=== PATIENT | male | born 1930 | race African-American/Black ===

== ENCOUNTER 2017-11-02 10:05 | Emergency (ER) | payer BC, OTHER ==
[2017-11-02 10:44] VITALS: BP 133/67; PULSE 76; TEMP 98.4; BMI 38.0
--- NOTE | 2017-11-02 10:51 | PDOC ---
History of Present Illness - General Chief Complaint: Edema Stated Complaint: SWOLLEN LIP Time Seen by Provider: 11/02/17 10:42 History Source: Patient Exam Limitations: No Limitations - History of Present Illness Initial Comments: 11/02/17 11:13 of mildly demented 87-year-old patient brought him in for worsening swelling to his left upper lip. States last night had a "knot" to the right upper side of his lip and when he woke up this morning noted is the left side of his upper lip was much more swollen. Denies injury, denies any recent change in medications, had a dental work done approximately 2 months ago without any incident. Denies fevers at home, denies any tenderness. Denies any shortness of breath or tongue swelling. Denies any wheezing or cough. Uncertain as to cause. Patient was seen here 2 years ago multiple occasions and then finally admitted for angioedema of unknown source, possibly related to a lollipop but never completely identified. Was treated with steroids, and antihistamines, and discharged with resolution of hives. reports that patient has had no recurrence of that type of event. 11/02/17 11:38 11/02/17 11:46 11/02/17 11:48 Timing/Duration: unsure Severity: mild, moderate Associated Symptoms: reports: denies symptoms. denies: cough, fever/chills Past History - Travel Traveled outside of the country in the last 30 days: No Close contact w/someone who was outside of country & ill: No - Past Medical History Allergies/Adverse Reactions: Allergies Allergy/AdvReac Type Severity Reaction Status Date / Time No Known Allergies Allergy Verified 08/16/16 02:58 Home Medications: Ambulatory Orders Cholecalciferol (Vitamin D3) [Vitamin D3] 5,000 unit PO DAILY 12/26/15 Hydrochlorothiazide [Hctz -] 25 mg PO DAILY 12/26/15 Rosuvastatin Calcium [Crestor] 5 mg PO DAILY 12/26/15 Acetaminophen [Tylenol .Regular Strength -] 650 mg PO Q4H PRN #0 tablet Aspirin Coated [Ecotrin -] 81 mg PO DAILY tablet.ec 12/29/15 Heparin - 5,000 unit SQ BID vial 12/29/15 Insulin (Novolog) [Novolog -] 0 units SQ ACHS units 12/29/15 Metoprolol Succinate [Toprol XL -] 50 mg PO DAILY tab.sr.24h 12/29/15 Metoprolol Tartrate [Lopressor -] 25 mg PO DAILY tablet 12/29/15 Prednisone [Deltasone -] 20 mg PO BID #8 tablet 11/02/17 Anemia: No Asthma: No Cancer: No Cardiac Disorders: No CVA: No COPD: No CHF: No Dementia: Yes Diabetes: Yes GI Disorders: Yes (GERD) Disorders: No HTN: Yes Hypercholesterolemia: Yes Liver Disease: No Seizures: No Thyroid Disease: No - Surgical History Abdominal Surgery: No Appendectomy: No Cardiac Surgery: No Cholecystectomy: No Lung Surgery: No Neurologic Surgery: No Orthopedic Surgery: ((L) KNEE SX) - Suicide/Smoking/Psychosocial Hx Smoking History: Former smoker Have you smoked in the past 12 months: No Information on smoking cessation initiated: No Hx Alcohol Use: No Drug/Substance Use Hx: No Substance Use Type: None Hx Substance Use Treatment: No Review of Systems - Review of Systems Able to Perform ROS?: Yes Is the patient limited Ukrainian proficient: Yes Constitutional: Yes: Symptoms Reported, See HPI, Malaise HEENTM: Yes: Symptoms Reported, See HPI. No: Nose Congestion, Throat Pain, Throat Swelling Respiratory: Yes: See HPI. No: Symptoms reported Musculoskeletal: Yes: Symptoms Reported, See HPI Integumentary: Yes: Symptoms Reported Neurological: Yes: Symptoms reported, See HPI All Other Systems: Reviewed and Negative *Physical Exam - Vital Signs Last Vital Signs Temp Pulse Resp BP Pulse Ox 98.4 F 76 20 133/67 100 11/02/17 10:31 11/02/17 10:31 11/02/17 10:31 11/02/17 10:31 11/02/17 10:31 - Physical Exam General Appearance: Yes: Nourished, Appropriately Dressed, Mild Distress. No: Apparent Distress HEENT: positive: SHERWIN, TMs Normal, Pharynx Normal, Other ( significant swelling to upper lip, worse on the left than the right. He has a professional and healing abrasion to the inner gingival surface left upper side. However there is no tenderness, erythema or heat to the area. No purulent drainage no lymphadenopathy.). negative: Rhinorrhea, Sinus Tenderness Neck: positive: Supple, Lymphadenopathy (R). negative: Tender Respiratory/Chest: positive: Lungs Clear, Normal Breath Sounds. negative: Respiratory Distress Gastrointestinal/Abdominal: positive: Soft. negative: Tender Musculoskeletal: positive: Normal Inspection Extremity: positive: Normal Capillary Refill, Normal Inspection, Normal Range of Motion, Tender Integumentary: positive: Dry, Warm (no hives, wheals, any other evidence of urticaria), Pale Neurologic: positive: batt packer II-XII NML intact, Fully Oriented, Alert, Normal Mood/ Affect, Normal Response Medical Decision Making - Medical Decision Making 11/02/17 12:[address] Taylor who agrees is probable angioedema of unknown cause. We will treat with steroids and antihistamines and observe. with patient, son were care providers and patient discussed plan 11/02/17 12:55 Ration has been resting quietly, and face appears mildly less swelling. Has no worsening of swelling, no urticaria, no breathing problems. States feels well. 11/02/17 14:36 okay after an observation period after Decadron and antihistamines patient rested quietly in the waiting room. Swelling to his lip is mildly resolved and patient has not developed any urticaria, hives or any airway difficulty. Son received father and has brought him home. Understands need to return immediately to emergency department for recurrence or worsening swelling, signs of worsened angioedema including tongue swelling and airway difficulty. We'll continue prednisone and antihistamines as directed. *DC/Admit/Observation/Transfer Diagnosis at time of Disposition: Angioedema Qualifiers: Encounter type: initial encounter Qualified Code(s): T78.3XXA - Angioneurotic edema, initial encounter - Discharge Dispostion Disposition: HOME Condition at time of disposition: Stable Admit: No - Prescriptions Prescriptions: Prednisone [Deltasone -] 20 mg PO BID #8 tablet - Referrals Referrals: Renetta Farley MD [Primary Care Provider] - - Patient Instructions Printed Discharge Instructions: DI for Angioedema Additional Instructions: Rest, drink lots of fluids: Teas, water, soups Lots of handwashing and good hygiene Continue [id number] medications for symptomatic relief- Continue antihistamines daily until pollen season is over; Zyrtec, Claritin, Edda during the daytime and Benadryl at nighttime as will make sleepy Continue prednisone 40 mg daily for the next 4 days Tylenol or Motrin for fever and pain Followup with private physician in one to 2 days Consider following up with an vice president of brand management/cartographic technician for skin testing and possible allergy shots Return to emergency department for worsened symptoms, fevers, dehydration - Post Discharge Activity
[2017-11-02] MEDS ORDERED: DEXAMETHASONE SOD PHOSPHATE 10 MG/1 ML VIAL IM ONE (11:26)
[2017-11-02] MEDS ORDERED: diphenhydrAMINE HCL 25 MG CAPSULE (FP) PO ONE ×2 (11:26→11:36)
[2017-11-02] MEDS ORDERED: RANITIDINE HCL 150 MG TABLET (FP) PO ONE (11:27)
[2017-11-02] MEDS ORDERED: DEXAMETHASONE SOD PHOSPHATE 10 MG/1 ML VIAL ONE (11:35)
[2017-11-02] MEDS ORDERED: RANITIDINE HCL 150 MG TABLET (FP) ONE (11:36)
== END 2017-11-02 14:18 | disposition home or self-care (01) ==
LOC: SUPCPDRO 10:05 → JER 10:05
PROC: 3E0233Z Introduction of Anti-inflammatory into Muscle, Percutaneous Approach (ICD-10-PCS; principal; 2017-11-02)
DX: T78.3XXA Angioneurotic edema, initial encounter (principal); I10 Essential (primary) hypertension; E11.9 Type 2 diabetes mellitus without complications; Z79.4 Long term (current) use of insulin; Z79.84 Long term (current) use of oral hypoglycemic drugs; E78.00 Pure hypercholesterolemia, unspecified; K21.9 Gastro-esophageal reflux disease without esophagitis; F03.90 Unspecified dementia, unspecified severity, without behavioral disturbance, psychotic disturbance, mood disturbance, and anxiety
CPT/HCPCS: 96372; 99281-25

== ENCOUNTER 2017-12-21 00:23 | Observation (INO) | payer OTHER ==
--- NOTE | 2017-12-21 00:42 | PDOC ---
History of Present Illness - General History Source: Patient, Family, Old Records Exam Limitations: No Limitations - History of Present Illness Initial Comments: 12/21/17 02:00 Patient is an 87 year old male with a significant past medical history of dementia, diabetes, GERD, hypertension and hyperlipidemia, who presents to the ED with complaints of chest discomfort that began just prior to ED arrival. Patient reports laying in bed when he began to experiencing bilateral chest discomfort, prompting him to come into the ED for further evaluation after discomfort did not relieve after drinking water. As per EMS staff patient was given 612 of adenosine on scene after patient receives an ECG which shows repeat of sinus with PVC as well as SVT. Denies stroke, heart attack or clots. Denies nausea, vomiting. Denies trauma to affected area. Denies any other symptoms. Allergies: None Social history: No smoking. No alcohol. No illicit drugs. Surgical history: Left knee surgery. PMD: Dr. Farley <Scott Sauer - Last Filed: 12/21/17 02:00> <Danelle Thompson - Last Filed: 12/21/17 02:12> - General Chief Complaint: Irregular Heart Beat Stated Complaint: RAPID HEART RATE Time Seen by Provider: 12/21/17 00:41 Past History <Scott Sauer - Last Filed: 12/21/17 02:00> - Past Medical History Anemia: No Asthma: No Cancer: No Cardiac Disorders: No CVA: No COPD: No CHF: No Dementia: Yes Diabetes: Yes GI Disorders: Yes (GERD) Disorders: No HTN: Yes Hypercholesterolemia: Yes Liver Disease: No Seizures: No Thyroid Disease: No - Surgical History Abdominal Surgery: No Appendectomy: No Cardiac Surgery: No Cholecystectomy: No Lung Surgery: No Neurologic Surgery: No Orthopedic Surgery: ((L) KNEE SX) - Suicide/Smoking/Psychosocial Hx Smoking History: Never smoked Have you smoked in the past 12 months: No Hx Alcohol Use: No Drug/Substance Use Hx: No Substance Use Type: None Hx Substance Use Treatment: No <Danelle Thompson - Last Filed: 12/21/17 02:12> - Past Medical History Allergies/Adverse Reactions: Allergies Allergy/AdvReac Type Severity Reaction Status Date / Time No Known Allergies Allergy Verified 12/21/17 01:07 Home Medications: Ambulatory Orders Cholecalciferol (Vitamin D3) [Vitamin D3] 5,000 unit PO DAILY 12/26/15 Hydrochlorothiazide [Hctz -] 25 mg PO DAILY 12/26/15 Rosuvastatin Calcium [Crestor] 5 mg PO DAILY 12/26/15 Acetaminophen [Tylenol .Regular Strength -] 650 mg PO Q4H PRN #0 tablet Aspirin Coated [Ecotrin -] 81 mg PO DAILY tablet.ec 12/29/15 Heparin - 5,000 unit SQ BID vial 12/29/15 Insulin (Novolog) [Novolog -] 0 units SQ ACHS units 12/29/15 Metoprolol Succinate [Toprol XL -] 50 mg PO DAILY tab.sr.24h 12/29/15 Metoprolol Tartrate [Lopressor -] 25 mg PO DAILY tablet 12/29/15 predniSONE [Deltasone -] 20 mg PO BID #8 tablet 11/02/17 Review of Systems - Review of Systems Able to Perform ROS?: Yes Comments:: 12/21/17 02:00 GENERAL/CONSTITUTIONAL: No fever or chills. No weakness. HEAD, EYES, EARS, NOSE AND THROAT: No change in vision. No ear pain or discharge. No sore throat. GASTROINTESTINAL: No nausea, vomiting, diarrhea or constipation. GENITOURINARY: No dysuria, frequency, or change in urination. CARDIOVASCULAR: +Chest discomfort. No shortness of breath. RESPIRATORY: No cough, wheezing, or hemoptysis. MUSCULOSKELETAL: No joint or muscle swelling or pain. No neck or back pain. SKIN: No rash NEUROLOGIC: No headache, vertigo, loss of consciousness, or change in strength/ sensation. ENDOCRINE: No increased thirst. No abnormal weight change. HEMATOLOGIC/LYMPHATIC: No anemia, easy bleeding, or history of blood clots. ALLERGIC/IMMUNOLOGIC: No hives or skin allergy. <Scott Sauer - Last Filed: 12/21/17 02:00> *Physical Exam - Vital Signs Last Vital Signs Temp Pulse Resp BP Pulse Ox 99.1 F 88 18 114/66 100 12/21/17 00:36 12/21/17 00:36 12/21/17 00:36 12/21/17 00:36 12/21/17 00:36 - Physical Exam Comments: 12/21/17 02:00 GENERAL: Awake, alert, and fully oriented, in no acute distress HEAD: No signs of trauma EYES: PERRLA, EOMI, sclera anicteric, conjunctiva clear ENT: Auricles normal inspection, hearing grossly normal, nares patent, oropharynx clear without exudates. Moist mucosa NECK: Normal ROM, supple, no lymphadenopathy, JVD, or masses LUNGS: Breath sounds equal, clear to auscultation bilaterally. No wheezes, and no crackles HEART: Regular rate and rhythm, normal S1 and S2, no murmurs, rubs or gallops ABDOMEN: Soft, nontender, normoactive bowel sounds. No guarding, no rebound. No masses EXTREMITIES: +Chronic venous stasis changes on lower extremities. Normal range of motion, no edema. No clubbing or cyanosis. No cords, erythema, or tenderness NEUROLOGICAL: +pleasantly demented. +Poor historian Cranial nerves II through XII grossly intact. Normal speech, SKIN: Warm, Dry, normal turgor, no rashes or lesions noted. <Scott Sauer - Last Filed: 12/21/17 02:00> Heart Score/ECG Review - ECG Intrepretation Comment:: 12/21/17 01:02 sinus at 89, 1st degree av block, nl axis, nl interval, no acute st/t wave findings, LVH <Danelle Thompson - Last Filed: 12/21/17 02:12> ED Treatment Course - LABORATORY CBC & Chemistry Diagram: 12/21/17 00:58 12/21/17 00:58 - ADDITIONAL ORDERS Additional order review: Laboratory Results 12/21/17 12/21/17 12/21/17 00:58 00:58 00:58 PT with INR 11.50 INR 1.02 PTT (Actin FS) 38.5 H D Sodium 139 Potassium 3.7 Chloride 104 Carbon Dioxide 24 Anion Gap 11 BUN 16 Creatinine 1.2 Creat Clearance w eGFR 57.54 Random Glucose 125 H Calcium 8.3 L Magnesium 2.2 Total Bilirubin 0.3 AST 20 ALT 14 D Alkaline Phosphatase 90 Creatine Kinase 172 Troponin I 0.05 D B-Natriuretic Peptide 63.21 Total Protein 6.6 Albumin 3.2 L 12/21/17 00:58 RBC 4.23 MCV 83.6 MCHC 33.4 RDW 14.2 MPV 7.6 Neutrophils % 60.3 D Lymphocytes % 23.7 D Monocytes % 12.1 H Eosinophils % 2.9 Basophils % 1.0 <Scott Sauer - Last Filed: 12/21/17 02:00> - LABORATORY CBC & Chemistry Diagram: 12/21/17 00:58 12/21/17 00:58 <Danelle Thompson - Last Filed: 12/21/17 02:12> Medical Decision Making - Medical Decision Making 12/21/17 00:59 a/p: 87yo male with SVT tonight -had assoc chest discomfort with SVT -given adenosine 6, 12mg -now in sinus -pt is pleasantly demented and cannot provide a complete hx -EKG post adenosine shows sinus with PVCs -will check labs, ekg, cxr, mag, electrolytes, trops -will need obs placement for cards eval -hx of SVT in the past - on metoprolol -no complaints at this time. cp and palpitations resolved -cards with Dr. Marcus Dean in past -PMD dr. Farley 12/21/17 01:54 labs reviewed xray without acute findings ekg stable will place in obs for repeat trops and cardiology eval in Am initial trop negative cp free at this time had cp during SVT episode 12/21/17 02:[address] Collins who accepts pt to tele obs will place consult to dr. dean from cardiology <Danelle Thompson - Last Filed: 12/21/17 02:12> *DC/Admit/Observation/Transfer - Attestations Scribe Attestion: 12/21/17 02:00 Documentation prepared by Scott Sauer, acting as medical education manager for Danelle Thompson DO, MD/. <Scott Sauer - Last Filed: 12/21/17 02:00> - Discharge Dispostion Admit: Yes - Attestations Physician Attestion: 12/21/17 01:56 I, Dr. Danelle Thompson DO, attest that this document has been prepared under my direction and personally reviewed by me in its entirety. I further attest, that it accurately reflects all work, treatment, procedures and medical decision -making performed by me. <Danelle Thompson - Last Filed: 12/21/17 02:12> Diagnosis at time of Disposition: Paroxysmal SVT (supraventricular tachycardia), Chest pain - Discharge Dispostion Condition at time of disposition: Fair - Referrals Referrals: Renetta Farley MD [Primary Care Provider] - - Patient Instructions - Post Discharge Activity
[2017-12-21] MEDS ORDERED: ADENOSINE 6 MG/2 ML VIAL IVPUSH ONE (00:57)
[2017-12-21 01:13] LABS: EOS % 2.9 % (0-4.5); HEMATOCRIT 35.4 % (35.4-49); HEMOGLOBIN 11.8 GM/dL (11.7-16.9); LYMPH % 23.7 % (8-40); MCH 27.9 pg (25.7-33.7); MCHC 33.4 g/dl (32.0-35.9); MEAN CELL VOLUME 83.6 fl (80-96); MEAN PLT VOLUME 7.6 fl (7.5-11.1); MONO % 12.1 % (3.8-10.2); NEUT % 60.3 % (42.8-82.8); PLATELET COUNT 155 K/MM3 (134-434); RBC 4.23 M/mm3 (4.00-5.60); RDW 14.2 % (11.9-15.9); WHITE BLOOD COUNT 3.3 K/mm3 (4.0-10.0)
[2017-12-21 01:34] LABS: INR 1.02 (0.82-1.09); PROTHROMBIN TIME (PATIENT) 11.5 SEC (9.98-11.88)
[2017-12-21 01:36] LABS: ACTIVATED PTT 38.5 SECONDS (26.9-34.4)
[2017-12-21 01:42] LABS: ALBUMIN 3.2 g/dl (3.4-5.0); ANION GAP 11 (8-16); BILIRUBIN,TOTAL 0.3 mg/dL (0.2-1.0); BLOOD UREA NITROGEN 16 mg/dL (7-18); CALCIUM 8.3 mg/dL (8.5-10.1); CHLORIDE 104 mmol/L (98-107); CO2 24 mmol/L (21-32); CREATININE 1.2 mg/dL (0.7-1.3); GLUCOSE,RANDOM 125 mg/dL (74-106); MAGNESIUM 2.2 mg/dL (1.8-2.4); POTASSIUM 3.7 mmol/L (3.5-5.1); SGOT/AST 20 U/L (15-37); SGPT/ALT 14 U/L (12-78); SODIUM 139 mmol/L (136-145); TOT PROT 6.6 g/dl (6.4-8.2)
[2017-12-21 01:44] LABS: ALK PHOS 90 U/L (45-117)
--- NOTE | 2017-12-21 04:13 | HP ---
CHIEF COMPLAINT: Chest pain x 1 day PCP: Dr Farley HISTORY OF PRESENT ILLNESS: Pt is a poor historian as a result of dementia, and the son at the bedside does not live with with the father. The Pt is an 87 yo M with PMHx of Aortic stenosis/Mitral regurgitation, SVT, angioedema, DM, HLD, HTN, Dementia, GERD presenting with a hx of retrosternal chest pain that started between 12.30am and 1.00am today. The chest pain came on suddenly while the pt was lying down in bed with his , before he fell asleep. It was difficult to confirm associations such as palpitations, SOB or diaphoresis. The Pt has chronic venous stasis with bilateral pedal edema at baseline. The son, who lives around the corner was contacted by phone and was present by the time EMS arrived. EMS identified the pt to be in SVT and gave him 2 rounds of adenosine (6mg, 12mg) with reversal of the rhythm before arrival at [facility]. Pt was noted to have had recent witnessed falls, last episode occuring the previous day, and the pt was reported not to have hit his head. No hx of seizures or loss of consciousness during those falls. Pt had SVT' s in 2016 that was aborted via vagal stimulation. At baseline he is is able to ambulate with a cane, dress and feed himself, and occasionally drive to nearby locations on his own. No recent hx of fevers, cough or sick contacts. No dysuria or increased urinary frequency. No change in bowel habits. Since arrival in [facility] pt has remained in sinus rhythm. 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 Lives with Smoking: Former, stopped in 1970s Alcohol: social Drugs: Denies Family History: Allergies No Known Allergies Allergy (Verified 03/09/18 01:07) HOME MEDICATIONS: Home Medications Medication Instructions Recorded Cholecalciferol (Vitamin D3) 5,000 unit PO DAILY 12/26/15 [Vitamin D3] Hydrochlorothiazide [Hctz -] 25 mg PO DAILY 12/26/15 Rosuvastatin Calcium [Crestor] 5 mg PO DAILY 12/26/15 Acetaminophen [Tylenol .Regular 650 mg PO Q4H PRN #0 tablet 12/29/15 Strength -] Aspirin Coated [Ecotrin -] 81 mg PO DAILY tablet.ec 12/29/15 Heparin - 5,000 unit SQ BID vial 12/29/15 Insulin (Novolog) [Novolog -] 0 units SQ ACHS units 12/29/15 Metoprolol Succinate [Toprol XL -] 50 mg PO DAILY tab.sr.24h 12/29/15 Metoprolol Tartrate [Lopressor -] 25 mg PO DAILY tablet 12/29/15 predniSONE [Deltasone -] 20 mg PO BID #8 tablet 11/02/17 REVIEW OF SYSTEMS CONSTITUTIONAL: Absent: fever, chills, diaphoresis, generalized weakness, malaise, loss of appetite, weight change HEENT: Absent: rhinorrhea, nasal congestion, throat pain, throat swelling, difficulty swallowing, mouth swelling, ear pain, eye pain, visual changes CARDIOVASCULAR: Absent: chest pain, syncope, palpitations, irregular heart rate, lightheadedness , peripheral edema RESPIRATORY: Absent: cough, shortness of breath, dyspnea with exertion, orthopnea, wheezing, stridor, hemoptysis GASTROINTESTINAL: Absent: abdominal pain, abdominal distension, nausea, vomiting, diarrhea, constipation, melena, hematochezia GENITOURINARY: Absent: dysuria, frequency, urgency, hesitancy, hematuria, flank pain, genital pain MUSCULOSKELETAL: Absent: myalgia, arthralgia, joint swelling, back pain, neck pain SKIN: Absent: rash, itching, pallor HEMATOLOGIC/IMMUNOLOGIC: Absent: easy bleeding, easy bruising, lymphadenopathy, frequent infections ENDOCRINE: Absent: unexplained weight gain, unexplained weight loss, heat intolerance, cold intolerance NEUROLOGIC: Absent: headache, focal weakness or paresthesias, dizziness, unsteady gait, seizure, mental status changes, bladder or bowel incontinence PSYCHIATRIC: Absent: anxiety, depression, suicidal or homicidal ideation, hallucinations. PHYSICAL EXAMINATION Vital Signs - 24 hr 12/21/17 12/21/17 00:36 02:48 Temperature 99.1 F Pulse Rate 88 Pulse Rate [ 77 Left Radial] Respiratory 18 18 Rate Blood Pressure 114/66 Blood Pressure 127/71 [Left Arm] O2 Sat by Pulse 100 97 Oximetry (%) GENERAL: Awake, alert, forgetful with in appropriate responses, in no acute distress. HEAD: Normal with no signs of trauma. EYES: Pupils equal, round and reactive to light, extraocular movements intact, sclera anicteric, conjunctiva clear. EARS, NOSE, THROAT: Ears normal, nares patent, oropharynx clear without exudates. Moist mucous membranes. NECK: Normal range of motion, supple without lymphadenopathy, no JVD, or masses. LUNGS: Breath sounds equal, clear to auscultation bilaterally. No wheezes, and no crackles. HEART: Regular rate and rhythm, normal S1 and S2, 3/6 systolic murmur loudest in RUSB radiating to carotids, no rub or gallop. ABDOMEN: Soft, nontender, obese, normoactive bowel sounds, no guarding, no rebound, no masses. MUSCULOSKELETAL: Normal range of motion at all joints. Chronic venous stasis bilaterally with bilateral pedal edema up to calf UPPER EXTREMITIES: 2+ pulses, warm, well-perfused. No cyanosis. No clubbing. No peripheral edema. LOWER EXTREMITIES: 2+ DP pulses, warm, well-perfused. No calf tenderness. No peripheral edema. NEUROLOGICAL: No facial droop, normal tone globally. No dysphasia . Gait not observed PSYCHIATRIC: Cooperative. Good eye contact. Laboratory Results - last 24 hr 12/21/17 12/21/17 12/21/17 00:58 00:58 00:58 WBC 3.3 L RBC 4.23 Hgb 11.8 D Hct 35.4 D MCV 83.6 MCH 27.9 MCHC 33.4 RDW 14.2 Plt Count 155 MPV 7.6 Neutrophils % 60.3 D Lymphocytes % 23.7 D Monocytes % 12.1 H Eosinophils % 2.9 Basophils % 1.0 PT with INR 11.50 INR 1.02 PTT (Actin FS) 38.5 H D Sodium 139 Potassium 3.7 Chloride 104 Carbon Dioxide 24 Anion Gap 11 BUN 16 Creatinine 1.2 Creat Clearance w eGFR 57.54 Random Glucose 125 H Calcium 8.3 L Magnesium 2.2 Total Bilirubin 0.3 AST 20 ALT 14 D Alkaline Phosphatase 90 Creatine Kinase 172 Creatine Kinase Index 1.0 CK-MB (CK-2) 1.751 Troponin I 0.05 D B-Natriuretic Peptide Total Protein 6.6 Albumin 3.2 L 12/21/17 00:58 WBC RBC Hgb Hct MCV MCH MCHC RDW Plt Count MPV Neutrophils % Lymphocytes % Monocytes % Eosinophils % Basophils % PT with INR INR PTT (Actin FS) Sodium Potassium Chloride Carbon Dioxide Anion Gap BUN Creatinine Creat Clearance w eGFR Random Glucose Calcium Magnesium Total Bilirubin AST ALT Alkaline Phosphatase Creatine Kinase Creatine Kinase Index CK-MB (CK-2) Troponin I B-Natriuretic Peptide 63.21 Total Protein Albumin ASSESSMENT/PLAN: The Pt is an 87 yo M with PMHx of Aortic stenosis/Mitral regurgitation, SVT, angioedema, DM, HLD, HTN, Dementia, GERD presenting with a hx of retrosternal chest pain 4 hours prior, found to have SVT and convert to sinus s/p adenosine x2 SVT: Cardioversion on adenosine EKG- sinus, ,absent ischemic changes Previous episode Hx of falls Cardiac monitoring TSH trops -0.05, trend Monitor lytes and replete as needed ECHO Cardiology consult- Dr Toledo saw in past, family request Dr Stockton CBC, CMP Aortic stenosis/Mitral regurgitation: Based on ECHO 2016 Could have induced recent falls ECHO- TTE Please verify meds in am Bilateral carotid duplex DM ISS ACHS BGM ACHS HLD Crestor 5mg HS HTN Please verify meds in am Metoprolol 25mg daily, Dementia Based on pt hx is on memantine Please confirm GERD Stable Hx of angioedema: Stable FEN: No fluids indicated at this time Monitor lytes and replete as needed Sodium restricted diet PPx: Heparin SQ 5000iu Q8H Dispo: Tele Visit type - Emergency Visit Emergency Visit: Yes ED Registration Date: 12/21/17 Care time: The patient presented to the Emergency Department on the above date and was hospitalized for further evaluation of their emergent condition. - New Patient This patient is new to me today: Yes Date on this admission: 12/22/17 - Critical Care Critical Care patient: No Hospitalist Screening - Colonoscopy Questionnaire Colonoscopy Questionnaire: Colonoscopy Questionnaire - Patient: 50 - 75 years old and never had a screening colonoscopy: No History of colon or rectal polyps, or CA: Unknown History of IBD, Crohn's disease or UC: Unknown History of abdominal radiation therapy as a child: Unknown - Relative: 1 with colon or rectal CA, or polyps at age 60 or younger: Unknown Colon or rectal CA diagnosed at age 45 or younger: Unknown Multiple relatives with colon or rectal CA: Unknown - Outcome: Screening Result: Negative Screen
[2017-12-21 04:43] VITALS: BMI 33.7
--- NOTE | 2017-12-21 06:12 | PN ---
Teaching Attending Note Name of Resident: Mariah Ma ATTENDING PHYSICIAN STATEMENT I saw and evaluated the patient. Chart, data, imaging reviewed. I reviewed the resident's note and discussed the case with the resident. I agree with the resident's findings and plan as documented. SUBJECTIVE: 87 year old man w/ dementia, diabetes, GERD, hypertension and hyperlipidemia who experienced chest discomfort on 12/20/17 when he was laying in bed. EMS was called and pt was found to be in SVT on rhythm strip. He was converted to sinus rhythm after adenosine administration 6mg and then 12mg IV. Questionable falls. No reported trauma. OBJECTIVE: Last Vital Signs Temp Pulse Resp BP Pulse Ox 97.9 F 74 18 120/61 99 12/21/17 06:00 12/21/17 06:00 12/21/17 06:00 12/21/17 06:00 12/21/17 04:36 General- aaox3, HEENT- at, nc, moist oral mucosa Neck -supple, no jvd, radiation to carotids b/l from systolic murmur CV - s1+s2+ rrr, systolic murmur Chest- cta Abdomen- soft, nt Ext- no pedal edema Abnormal Lab Results 12/21/17 12/21/17 12/21/17 00:58 00:58 00:58 WBC 3.3 L Monocytes % 12.1 H PTT (Actin FS) 38.5 H D Random Glucose 125 H Calcium 8.3 L Albumin 3.2 L EKG- sinus rhythm, LVH ASSESSMENT AND PLAN: #87yo man with SVT which was converted to sinus rhythm after adenosine administration x 2 in the field. Normal EKG in ER. Electrolytes wnl. -admit to tele observation -repeat electolytes, supplement PRN -repeat ekg -cardiology consult for possible EP studies -fall precautions -bed rest #Systolic murmur- likely 2/2 to aortic stenosis -transthoracic echo - to check gradient -carotid duplex b/l -DVT ppx- heparin sc -continue home meds for chronic medical problems
[2017-12-21 07:54] LABS: BASO % 0.7 % (0-2.0); EOS % 1.7 % (0-4.5); HEMATOCRIT 35.4 % (35.4-49); HEMOGLOBIN 11.9 GM/dL (11.7-16.9); LYMPH % 21.6 % (8-40); MCH 28.2 pg (25.7-33.7); MCHC 33.7 g/dl (32.0-35.9); MEAN CELL VOLUME 83.6 fl (80-96); MEAN PLT VOLUME 7.4 fl (7.5-11.1); MONO % 11.9 % (3.8-10.2); NEUT % 64.1 % (42.8-82.8); PLATELET COUNT 155 K/MM3 (134-434); RBC 4.24 M/mm3 (4.00-5.60); RDW 14.1 % (11.9-15.9)
[2017-12-21] MEDS ORDERED: ACETAMINOPHEN 325 MG TABLET (FP) PO PRN (08:39)
[2017-12-21 08:41] LABS: ALBUMIN 3.2 g/dl (3.4-5.0); ALK PHOS 75 U/L (45-117); ANION GAP 6 (8-16); BILIRUBIN,TOTAL 0.4 mg/dL (0.2-1.0); BLOOD UREA NITROGEN 15 mg/dL (7-18); CALCIUM 8.4 mg/dL (8.5-10.1); CHLORIDE 104 mmol/L (98-107); CO2 29 mmol/L (21-32); CREATININE 1.1 mg/dL (0.7-1.3); GLUCOSE,RANDOM 99 mg/dL (74-106); MAGNESIUM 2.2 mg/dL (1.8-2.4); PHOSPHOROUS 3.3 mg/dL (2.5-4.9); POTASSIUM 4.3 mmol/L (3.5-5.1); SGOT/AST 17 U/L (15-37); SGPT/ALT 13 U/L (12-78); SODIUM 139 mmol/L (136-145); TOT PROT 6.1 g/dl (6.4-8.2)
--- NOTE | 2017-12-21 08:45 | EKG ---
Test Reason : Blood Pressure : / mmHG Vent. Rate : 089 BPM Atrial Rate : 089 BPM P-R Int : 234 ms QRS Dur : 100 ms QT Int : 376 ms P-R-T Axes : 058 -19 054 degrees QTc Int : 457 ms SINUS RHYTHM WITH 1ST DEGREE A-V BLOCK MODERATE VOLTAGE CRITERIA FOR LVH, MAY BE NORMAL VARIANT CANNOT RULE OUT SEPTAL INFARCT , AGE UNDETERMINED ABNORMAL ECG WHEN COMPARED WITH ECG OF 27-DEC-2015 09:29, MINIMAL CRITERIA FOR SEPTAL INFARCT ARE NOW PRESENT Confirmed by MICHELET GARCIA, MILAD ([id number]) on 12/21/2017 8:45:24 AM Referred By: Confirmed By:MILAD TAFOYA MD
--- NOTE | 2017-12-21 09:32 | PN ---
Progress Note, Physician History of Present Illness: FEELS BETTER ADMITTED WITH SVT - Current Medication List Current Medications: Active Medications Acetaminophen (Tylenol -) 650 mg PO Q4H PRN PRN Reason: FEVER Aspirin (Ecotrin -) 81 mg PO DAILY [facility] Heparin Sodium (Porcine) (Heparin -) 5,000 unit SQ BID [facility] Hydrochlorothiazide (Hctz -) 25 mg PO DAILY [facility] Metoprolol Tartrate (Lopressor -) 25 mg PO DAILY [facility] Rosuvastatin Calcium (Crestor -) 5 mg PO HS [facility] - Objective Vital Signs: Vital Signs Temperature 97.9 F 12/21/17 06:00 Pulse Rate 74 12/21/17 06:00 Respiratory Rate 18 12/21/17 06:00 Blood Pressure 120/61 12/21/17 06:00 O2 Sat by Pulse Oximetry (%) 99 12/21/17 04:36 Cardiovascular: Yes: Murmur, S1, S2 Respiratory: Yes: Regular, CTA Bilaterally Gastrointestinal: Yes: Normal Bowel Sounds, Soft Edema: No Labs: CBC, BMP 12/21/17 07:15 12/21/17 07:15 INR, PTT INR 1.02 (0.82-1.09) 12/21/17 00:58 Problem List - Problems (1) Paroxysmal SVT (supraventricular tachycardia) Assessment/Plan: TELE MONITORING ECHO TFT CARDIO Code(s): I47.1 - SUPRAVENTRICULAR TACHYCARDIA (2) Aortic stenosis Assessment/Plan: ECHO CARDIO Code(s): I35.0 - NONRHEUMATIC AORTIC (VALVE) STENOSIS (3) Diabetes Assessment/Plan: BGM Code(s): E11.9 - TYPE 2 DIABETES MELLITUS WITHOUT COMPLICATIONS (4) HTN (hypertension) Code(s): I10 - ESSENTIAL (PRIMARY) HYPERTENSION (5) Dementia Assessment/Plan: on namenda Code(s): F03.90 - UNSPECIFIED DEMENTIA WITHOUT BEHAVIORAL DISTURBANCE
[2017-12-21] MEDS: HYDROCHLOROTHIAZIDE 25 MG TABLET (FP) PO SCH (09:48)
[2017-12-21] MEDS: ASPIRIN COATED 81 MG TABLET.EC PO SCH (09:48)
[2017-12-21] MEDS: METOPROLOL TARTRATE 25 MG TABLET (FP) PO SCH (09:48)
[2017-12-21] MEDS: HEPARIN NA (PORCINE) 5,000 UNITS/ML 1ML VIAL SQ SCH ×2 (09:49→21:34)
--- NOTE | 2017-12-21 13:35 | PN ---
Progress Note (short form) - Note Progress Note: PULMONARY CONSULTATION DICTATED 12/21/17 IMP CHEST PAIN PSVT HTN DM LEFT HILAR CALCIFICATION CHRONIC DEMENTIA PLAN O2 PRN RATE CONTROL PER CARDIOLOGY CARDIAC ENZYMES MONITOR BLOOD SUGARS TELEMETRY MONITORING DR MELÉNDEZ Problem List - Problems (1) Dementia Code(s): F03.90 - UNSPECIFIED DEMENTIA WITHOUT BEHAVIORAL DISTURBANCE (2) Chest pain Code(s): R07.9 - CHEST PAIN, UNSPECIFIED (3) Paroxysmal SVT (supraventricular tachycardia) Code(s): I47.1 - SUPRAVENTRICULAR TACHYCARDIA (4) Aortic stenosis Code(s): I35.0 - NONRHEUMATIC AORTIC (VALVE) STENOSIS (5) Diabetes Code(s): E11.9 - TYPE 2 DIABETES MELLITUS WITHOUT COMPLICATIONS (6) HLD (hyperlipidemia) Code(s): E78.5 - HYPERLIPIDEMIA, UNSPECIFIED (7) HTN (hypertension) Code(s): I10 - ESSENTIAL (PRIMARY) HYPERTENSION
--- NOTE | 2017-12-21 13:52 | CON.CARD ---
Consult Consult Specialty:: cardiology Referred by:: Karina Reason for Consultation:: Chest pain - History of Present Illness Chief Complaint: Chest pain History of Present Illness: The patient is an 87-year-old man with dementia, diabetes, hypertension, hyperlipidemia, GERD, now presenting with chest pains in bed. The patient called EMS who noticed a supraventricular tachycardia. The patient was given adenosine in the field and broke to sinus rhythm. Is currently comfortable and symptom free. Maintaining sinus rhythm. - History Source History Provided By: Patient, Medical Record Limitations to Obtaining History: Dementia - Past Medical History ACCESS LIAISON: Yes: Dementia Cardio/Vascular: Yes: Aortic Stenosis, HTN, Hyperlipdemia, Mitral Insufficiency Musculoskeletal: Yes: Osteoarthritis Endocrine: Yes: Diabetes Mellitus - Alcohol/Substance Use Hx Alcohol Use: No - Smoking History Smoking history: Never smoked Have you smoked in the past 12 months: No Home Medications - Allergies Allergies/Adverse Reactions: Allergies Allergy/AdvReac Type Severity Reaction Status Date / Time No Known Allergies Allergy Verified 12/21/17 01:07 - Home Medications Home Medications: Ambulatory Orders Cholecalciferol (Vitamin D3) [Vitamin D3] 5,000 unit PO DAILY 12/26/15 Hydrochlorothiazide [Hctz -] 25 mg PO DAILY 12/26/15 Rosuvastatin Calcium [Crestor] 5 mg PO DAILY 12/26/15 Acetaminophen [Tylenol .Regular Strength -] 650 mg PO Q4H PRN #0 tablet Aspirin Coated [Ecotrin -] 81 mg PO DAILY tablet.ec 12/29/15 Heparin - 5,000 unit SQ BID vial 12/29/15 Insulin (Novolog) [Novolog -] 0 units SQ ACHS units 12/29/15 Metoprolol Succinate [Toprol XL -] 50 mg PO DAILY tab.sr.24h 12/29/15 Metoprolol Tartrate [Lopressor -] 25 mg PO DAILY tablet 12/29/15 predniSONE [Deltasone -] 20 mg PO BID #8 tablet 11/02/17 Review of Systems - Review of Systems Constitutional: reports: No Symptoms Eyes: reports: No Symptoms HENT: reports: No Symptoms Neck: reports: No Symptoms Cardiovascular: reports: Chest Pain Respiratory: reports: No Symptoms Gastrointestinal: reports: No Symptoms Genitourinary: reports: No Symptoms Breasts: reports: No Symptoms Reported Musculoskeletal: reports: No Symptoms Integumentary: reports: No Symptoms Neurological: reports: No Symptoms Endocrine: reports: No Symptoms Vital Signs: Vital Signs Temperature 97.7 F 12/21/17 09:46 Pulse Rate 70 12/21/17 09:46 Respiratory Rate 18 12/21/17 09:46 Blood Pressure 118/62 12/21/17 09:46 O2 Sat by Pulse Oximetry (%) 99 12/21/17 09:00 Constitutional: Yes: Well Nourished, No Distress, Calm Eyes: Yes: WNL, Conjunctiva Clear, EOM Intact HENT: Yes: WNL, Atraumatic, Normocephalic Neck: Yes: WNL, Supple, Trachea Midline Respiratory: Yes: WNL, Regular, CTA Bilaterally Gastrointestinal: Yes: WNL, Normal Bowel Sounds, Soft Renal/: Yes: WNL Cardiovascular: Yes: Regular Rate and Rhythm JVD: No Carotid Bruit: No Heart Sounds: Yes: S1, S2 Murmur: Yes: Systolic Murmur, Grade 2 Musculoskeletal: Yes: WNL Extremities: Yes: WNL Edema: No Peripheral Pulses: 1+ Left Carotid, 1+ Right Carotid, 1+ Left Femoral, 1+ Right Femoral, 1+ Left Popliteal, 1+ Right Popliteal, 1+ Left Doralis Pedis, 1+ Right Dorsalis Pedis Integumentary: Yes: WNL Neurological: Yes: Alert - Other Data Labs, Other Data: CBC, BMP 12/21/17 07:15 12/21/17 07:15 INR, PTT INR 1.02 (0.82-1.09) 12/21/17 00:58 Troponin, BNP 12/21/17 12/21/17 12/21/17 00:58 00:58 07:15 Troponin I 0.05 D 0.12 H D B-Natriuretic Peptide 63.21 12/21/17 08:40 Troponin I Cancelled B-Natriuretic Peptide Troponin, BNP 12/21/17 12/21/17 12/21/17 00:58 00:58 07:15 Troponin I 0.05 D 0.12 H D B-Natriuretic Peptide 63.21 12/21/17 08:40 Troponin I Cancelled B-Natriuretic Peptide Assessment/Plan Elderly man presenting with chest pains in bed. Found to have a supraventricular tachycardia by EMS. The arrhythmia broke with adenosine. The patient has been maintaining sinus rhythm. He has been chest pain-free. There are no acute ECG changes. No CHF. Second set of troponins are elevated. Please increase metoprolol to 25 mg twice daily. Increase the dose as much as heart rate and blood pressure allows. If symptoms persist would start Imdur 30 mg daily. Give Ecotrin 81 mg daily. There is no need for further cardiac workup at this point. Conservative cardiac care. Would monitor for further 24 hours on the above regimen. The patient is stable.
--- NOTE | 2017-12-21 14:09 | CONS ---
DATE OF CONSULTATION: 12/21/2017 REFERRING PHYSICIAN: Renetta Farley MD HISTORY: The patient is an 87-year-old black male with past medical history of dementia, diabetes, GERD, hypertension, hyperlipidemia, aortic stenosis, diastolic heart failure admitted to [facility] with the complaint of chest pain. The patient states that he developed chest discomfort just prior to emergency room. He apparently was lying in bed at the time and started feeling bilateral chest discomfort at which time he came to the ER. He denied any complaint of shortness of breath, nausea, vomiting, or diaphoresis. In the emergency room, he was noted to be in SVT at which point he was given adenosine with good response. The patient was transferred to the telemetry unit for further monitoring. He has a history of tobacco use. He quit years ago. There is no history of occupational exposure to chemicals or fumes. He denies any cough, fevers, weight loss, or night sweats. He denies any hemoptysis. PAST MEDICAL HISTORY: Again, includes aortic stenosis, dementia, diabetes, GERD, hypertension, hyperlipidemia. MEDICATIONS: Prior to admission include vitamin D, hydrochlorothiazide, Crestor, Ecotrin, and NovoLog. REVIEW OF SYSTEMS: No shortness of breath, no cough, no hemoptysis. Positive chest pain. No nausea, no vomiting, no abdominal pain. Positive lower extremity edema chronic. PHYSICAL EXAMINATION: General: The patient is a well-developed, well-nourished male awake and alert mildly confused but in no acute distress. Vital Signs: He is afebrile. Blood pressure is 118/62, respiratory rate 18, O2 saturation 99% on room air. HEENT: Normocephalic and atraumatic. Neck: Supple. Heart: Regular with S1, S2. Chest: Clear. Abdomen: Soft. Bowel sounds are positive. Extremities: Chronic stasis changes bilaterally. LABORATORIES: WBC 4, hemoglobin 11.9, hematocrit 35.9 with a platelet count of 155,000. BUN 15, creatinine 1.1. Chest x-ray with mild pulmonary vascular congestion and some mild hilar calcifications. IMPRESSION: 1. Chest pain syndrome. 2. Supraventricular tachycardia. 3. Dementia. 4. Hypertension. 5. Hilar calcification, chronic. 6. Aortic stenosis. 7. Diabetes. PLAN: Continue cardiac monitoring. Rate control as per Cardiology. No further workup as per hilar calcifications. This is chronic, possible infection, granulomatous disease. Codey [id number]
[2017-12-21] MEDS: MEMANTINE HCL 10 MG TABLET (FP) PO SCH ×2 (16:01→21:34)
[2017-12-21] MEDS ORDERED: ROSUVASTATIN CA 5 MG TABLET (FP) PO SCH (22:00)
[2017-12-22 07:51] LABS: INR 1.05 (0.82-1.09); PROTHROMBIN TIME (PATIENT) 11.9 SEC (9.98-11.88)
[2017-12-22] MEDS: METOPROLOL TARTRATE 25 MG TABLET (FP) PO SCH (09:12)
[2017-12-22] MEDS: HYDROCHLOROTHIAZIDE 25 MG TABLET (FP) PO SCH (09:12)
[2017-12-22] MEDS: ASPIRIN COATED 81 MG TABLET.EC PO SCH (09:12)
[2017-12-22] MEDS: HEPARIN NA (PORCINE) 5,000 UNITS/ML 1ML VIAL SQ SCH (09:12)
[2017-12-22] MEDS: MEMANTINE HCL 10 MG TABLET (FP) PO SCH (09:12)
[2017-12-22 11:08] VITALS: BP 119/64; PULSE 88; TEMP 97.9
--- NOTE | 2017-12-22 12:07 | PN ---
Progress Note, Physician History of Present Illness: PULMONARY AWAKE,CONFUSED,NAD - Current Medication List Current Medications: Active Medications Acetaminophen (Tylenol -) 650 mg PO Q4H PRN PRN Reason: FEVER Aspirin (Ecotrin -) 81 mg PO DAILY [facility] Last Admin: 12/22/17 09:12 Dose: 81 mg Heparin Sodium (Porcine) (Heparin -) 5,000 unit SQ BID [facility] Last Admin: 12/22/17 09:12 Dose: 5,000 unit Hydrochlorothiazide (Hctz -) 25 mg PO DAILY [facility] Last Admin: 12/22/17 09:12 Dose: 25 mg Memantine (Namenda -) 10 mg PO BID [facility] Last Admin: 12/22/17 09:12 Dose: 10 mg Metoprolol Tartrate (Lopressor -) 25 mg PO BID [facility] Rosuvastatin Calcium (Crestor -) 5 mg PO HS [facility] Last Admin: 12/21/17 21:34 Dose: 5 mg - Objective Vital Signs: Vital Signs Temperature 97.9 F 12/22/17 09:07 Pulse Rate 88 12/22/17 09:07 Respiratory Rate 18 12/22/17 09:07 Blood Pressure 119/64 12/22/17 09:07 O2 Sat by Pulse Oximetry (%) 99 12/22/17 10:00 Constitutional: Yes: Well Nourished, Calm Eyes: Yes: WNL HENT: Yes: WNL Neck: Yes: WNL Cardiovascular: Yes: Regular Rate and Rhythm, S1, S2 Respiratory: Yes: Diminished Gastrointestinal: Yes: Normal Bowel Sounds, Soft Extremities: Yes: WNL Edema: No Labs: CBC, BMP Problem List - Problems (1) Dementia Code(s): F03.90 - UNSPECIFIED DEMENTIA WITHOUT BEHAVIORAL DISTURBANCE (2) Chest pain Code(s): R07.9 - CHEST PAIN, UNSPECIFIED (3) Paroxysmal SVT (supraventricular tachycardia) Code(s): I47.1 - SUPRAVENTRICULAR TACHYCARDIA (4) Aortic stenosis Code(s): I35.0 - NONRHEUMATIC AORTIC (VALVE) STENOSIS (5) Diabetes Code(s): E11.9 - TYPE 2 DIABETES MELLITUS WITHOUT COMPLICATIONS (6) HLD (hyperlipidemia) Code(s): E78.5 - HYPERLIPIDEMIA, UNSPECIFIED (7) HTN (hypertension) Code(s): I10 - ESSENTIAL (PRIMARY) HYPERTENSION Assessment/Plan IMP CHEST PAIN IMPROVED PSVT HTN DM LEFT HILAR CALCIFICATION CHRONIC DEMENTIA PLAN O2 PRN RATE CONTROL PER CARDIOLOGY MONITOR BLOOD SUGARS TELEMETRY MONITORING DR MELÉNDEZ Problem List - Problems (1) Dementia Code(s): F03.90 - UNSPECIFIED DEMENTIA WITHOUT BEHAVIORAL DISTURBANCE (2) Chest pain Code(s): R07.9 - CHEST PAIN, UNSPECIFIED (3) Paroxysmal SVT (supraventricular tachycardia) Code(s): I47.1 - SUPRAVENTRICULAR TACHYCARDIA (4) Aortic stenosis Code(s): I35.0 - NONRHEUMATIC AORTIC (VALVE) STENOSIS (5) Diabetes Code(s): E11.9 - TYPE 2 DIABETES MELLITUS WITHOUT COMPLICATIONS (6) HLD (hyperlipidemia) Code(s): E78.5 - HYPERLIPIDEMIA, UNSPECIFIED (7) HTN (hypertension) Code(s): I10 - ESSENTIAL (PRIMARY) HYPERTENSION
--- NOTE | 2017-12-22 13:05 | DS ---
Physical Examination Vital Signs: Vital Signs Temperature 97.9 F 12/22/17 09:07 Pulse Rate 88 12/22/17 09:07 Respiratory Rate 18 12/22/17 09:07 Blood Pressure 119/64 12/22/17 09:07 O2 Sat by Pulse Oximetry (%) 99 12/22/17 10:00 Findings/Remarks: confusion Cardiovascular: Yes: S1, S2 Respiratory: Yes: Regular, CTA Bilaterally Gastrointestinal: Yes: Normal Bowel Sounds Neurological: Yes: Alert, Confusion Labs: CBC, BMP 12/21/17 07:15 12/21/17 07:15 Discharge Summary Reason For Visit: PAROXYSMAL SUPRAVENTRICULAR TACHYCARDIA Current Active Problems Chest pain (Acute) Dementia (Acute) Paroxysmal SVT (supraventricular tachycardia) (Acute) Hospital Course: The Pt is an 87 yo M with PMHx of Aortic stenosis/Mitral regurgitation, SVT, angioedema, DM, HLD, HTN, Dementia, GERD presenting with a hx of retrosternal chest pain that started between 12.30am and 1.00am today. The chest pain came on suddenly while the pt was lying down in bed with his , before he fell asleep. It was difficult to confirm associations such as palpitations, SOB or diaphoresis. The Pt has chronic venous stasis with bilateral pedal edema at baseline. The son, who lives around the corner was contacted by phone and was present by the time EMS arrived. EMS identified the pt to be in SVT and gave him 2 rounds of adenosine (6mg, 12mg) with reversal of the rhythm before arrival at [facility]. Pt was noted to have had recent witnessed falls, last episode occuring the previous day, and the pt was reported not to have hit his head. No hx of seizures or loss of consciousness during those falls. Pt had SVT' s in 2016 that was aborted via vagal stimulation. At baseline he is is able to ambulate with a cane, dress and feed himself, and occasionally drive to nearby locations on his own. No recent hx of fevers, cough or sick contacts. No dysuria or increased urinary frequency. No change in bowel habits. Since arrival in [facility] pt has remained in sinus rhythm. 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 Lives with Smoking: Former, stopped in 1970s Alcohol: social Drugs: Denies - Problems (1) Paroxysmal SVT (supraventricular tachycardia) Assessment/Plan: TELE MONITORING ECHO TFT CARDIO Please increase metoprolol to 25 mg twice daily. Increase the dose as much as heart rate and blood pressure allows. If symptoms persist would start Imdur 30 mg daily. Give Ecotrin 81 mg daily. There is no need for further cardiac workup at this point. Conservative cardiac care. Would monitor for further 24 hours on the above regimen. The patient is stable. Code(s): I47.1 - SUPRAVENTRICULAR TACHYCARDIA (2) Aortic stenosis Assessment/Plan: ECHO-moderate CARDIO Code(s): I35.0 - NONRHEUMATIC AORTIC (VALVE) STENOSIS (3) Diabetes Assessment/Plan: BGM Code(s): E11.9 - TYPE 2 DIABETES MELLITUS WITHOUT COMPLICATIONS (4) HTN (hypertension) Code(s): I10 - ESSENTIAL (PRIMARY) HYPERTENSION (5) Dementia Assessment/Plan: on namenda Code(s): F03.90 - UNSPECIFIED DEMENTIA WITHOUT BEHAVIORAL DISTURBANCE Condition: Improved - Instructions Referrals: Renetta Farley MD [Primary Care Provider] - 1 Week Disposition: VNS/HOME HEALTH CARE - Home Medications Comprehensive Discharge Medication List: Ambulatory Orders Cholecalciferol (Vitamin D3) [Vitamin D3] 5,000 unit PO DAILY 12/26/15 Hydrochlorothiazide [Hctz -] 25 mg PO DAILY 12/26/15 Acetaminophen [Tylenol .Regular Strength -] 650 mg PO Q4H PRN #0 tablet Aspirin Coated [Ecotrin -] 81 mg PO DAILY tablet.ec 12/29/15 Zocor 20 tab PO HS 12/21/17 Metoprolol Tartrate [Lopressor -] 25 mg PO BID tablet 12/22/17
[2017-12-22] MEDS ORDERED: METOPROLOL TARTRATE 25 MG TABLET (FP) PO SCH (22:00)
== END 2017-12-22 14:12 | disposition home health service (06) ==
LOC: JER 00:23 → JERBED 02:12 → UNDOADMOB 03:31 → JERBED 03:31 → J4S 03:48
PROVIDERS: ADMIT Internal Medicine; ATTEND Family Medicine
PROC: 3E013GC Introduction of Other Therapeutic Substance into Subcutaneous Tissue, Percutaneous Approach (ICD-10-PCS; principal; 2017-12-21)
DX: I47.1 Supraventricular tachycardia (principal); R07.9 Chest pain, unspecified; I35.0 Nonrheumatic aortic (valve) stenosis; I34.0 Nonrheumatic mitral (valve) insufficiency; I10 Essential (primary) hypertension; E78.5 Hyperlipidemia, unspecified; E11.9 Type 2 diabetes mellitus without complications; F03.90 Unspecified dementia, unspecified severity, without behavioral disturbance, psychotic disturbance, mood disturbance, and anxiety; K21.9 Gastro-esophageal reflux disease without esophagitis; Z79.82 Long term (current) use of aspirin; Z79.4 Long term (current) use of insulin; R01.1 Cardiac murmur, unspecified
CPT/HCPCS: 36415; 71045-TC-FY; 80053; 82550; 82553; 83735; 83880; 84100; 84439; 84443; 84484; 85025; 85610; 85730; 87389; 93005; 93010; 93306-TC; 93880-TC; 96372; 99283-25; G0378; J1644

== ENCOUNTER 2018-08-13 15:59 | Inpatient (IN) | payer OTHER ==
--- NOTE | 2018-08-13 16:06 | PDOC ---
History of Present Illness - General Chief Complaint: Syncope/Near Syncope Stated Complaint: SYNCOPE Time Seen by Provider: 08/13/18 16:05 History Source: Patient, Unavil. due to pt. cond. Exam Limitations: Dementia (severe dementia and confused; past notes say pt has dementia at baseline.) - History of Present Illness Initial Comments: Pt is an 88 yo M, with PMH of /MR, SVT, DM, HLD, HTN, dementia, and GERD, who is presenting with possible pre-syncopal vs syncopal episode, brought by EMS, and is not accompanied by any caregiver or family member. Pt states he was with his at an "appointment". She brought him a cup of coffee and he "began to feel weak so [he] sat in a chair". He denies falling from the chair and hitting his head, but pt is only oriented to time, and that "he is in a hospital". He is denying any complaints at this time, but pt is poor historian and ROS is limited. Spoke with pts who gave a more thorough story (Mrs. Banks - [phone] ). She states the pt was eating a snack at home, felt weak, and sat down. He fell onto the floor and had LOC for 20 minutes. She denies any recent illness, but states he may not be drinking enough water. Pt does not appear clinically dry. Pt and pts deny alcohol, cigarette and other drug use. Pt and pts deny recent travel and other sick contacts. 08/13/18 18:56 Past History - Travel Traveled outside of the country in the last 30 days: No Close contact w/someone who was outside of country & ill: No - Past Medical History Allergies/Adverse Reactions: Allergies Allergy/AdvReac Type Severity Reaction Status Date / Time No Known Allergies Allergy Verified 12/21/17 01:07 Home Medications: Ambulatory Orders Cholecalciferol (Vitamin D3) [Vitamin D3] 5,000 unit PO DAILY 12/26/15 Hydrochlorothiazide [Hctz -] 25 mg PO DAILY 12/26/15 Acetaminophen [Tylenol .Regular Strength -] 650 mg PO Q4H PRN #0 tablet Metoprolol Tartrate [Lopressor -] 25 mg PO BID tablet 12/22/17 Memantine HCl 10 mg PO DAILY 08/13/18 Anemia: No Asthma: No Cancer: No Cardiac Disorders: Yes (HTN, /MR, SVT) CVA: No COPD: No CHF: No Dementia: Yes Diabetes: Yes GI Disorders: Yes (GERD) Disorders: No HTN: Yes Hypercholesterolemia: Yes Liver Disease: No Seizures: No Thyroid Disease: No - Surgical History Abdominal Surgery: No Appendectomy: No Cardiac Surgery: No Cholecystectomy: No Lung Surgery: No Neurologic Surgery: No Orthopedic Surgery: ((L) KNEE SX) - Suicide/Smoking/Psychosocial Hx Smoking History: Never smoked Have you smoked in the past 12 months: No Hx Alcohol Use: No Drug/Substance Use Hx: No Substance Use Type: None Hx Substance Use Treatment: No Review of Systems - Review of Systems Able to Perform ROS?: No (dementia) Is the patient limited Macanese proficient: Yes *Physical Exam - Physical Exam General Appearance: Yes: Nourished, Appropriately Dressed, Obese. No: Apparent Distress (pt lying comfortably, vitals stable, no SVT) HEENT: positive: EOMI, SHERWIN, Normal ENT Inspection, Normal Voice, Pharynx Normal , Hearing Grossly Normal. negative: Scleral Icterus (R), Scleral Icterus (L), Pharyngeal Erythema, Tonsillar Exudate, Tonsillar Erythema, Rhinorrhea Neck: positive: Trachea midline, Normal Thyroid, Supple. negative: Tender, Rigid, Lymphadenopathy (R), Lymphadenopathy (L) Respiratory/Chest: positive: Lungs Clear, Normal Breath Sounds. negative: Chest Tender, Respiratory Distress, Accessory Muscle Use, Crackles, Wheezing Cardiovascular: positive: Regular Rhythm, Regular Rate, S1, S2, Murmur ( systolic murmur, history of /MR). negative: Edema, JVD Vascular Pulses: Carotid (R): 4+, Carotid (L): 4+ Gastrointestinal/Abdominal: positive: Normal Bowel Sounds, Flat, Soft. negative : Tender, Organomegaly, Pulsatile Mass, Distended, Guarding, Rebound Rectal Exam: positive: deferred Lymphatic: negative: Adenopathy, Tenderness Musculoskeletal: positive: Normal Inspection. negative: CVA Tenderness Extremity: positive: Normal Capillary Refill, Normal Inspection, Normal Range of Motion, Pelvis Stable, Pedal Edema (b/l chronic pitting edema with hyperkeratosis.). negative: Tender Integumentary: positive: Dry, Warm, Other (hyperkeratosis b/l LE with edema). 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 negative: Fully Oriented (baseline dementia, oriented to person), EOM Palsy, Facial Droop Heart Score/ECG Review - History History: Moderately suspicious - Electrocardiogram EKG: Normal - Age Age: >/= 65 - Risk Factors Risk Factors Heart Score: Yes Hx Hypercholesterolemia, Yes Hx Hypertension, Yes Hx Diabetes Based on the list above the patient has:: >/=3 risk factors or Hx atherosclerotic disease - Troponin Troponin: </= normal limit - Score Heart Score - Total: 5 ED Treatment Course - LABORATORY CBC & Chemistry Diagram: 08/13/18 17:07 08/13/18 17:07 Medical Decision Making - Medical Decision Making Pt was seen at bedside, also will be seen by attending Dr. De La Cruz. Pt presenting with possible pre-syncopal vs syncopal episode, brought by EMS, and is not accompanied by any caregiver or family member. Pt states he was with his at an "appointment". She brought him a cup of coffee and he "began to feel weak so [he] sat in a chair". He denies falling from the chair and hitting his head, but pt is only oriented to time, and that "he is in a hospital". He is denying any complaints at this time, but pt is poor historian and ROS is limited. Pt has been admitted in December and January of 2018 for SVT, which has always resolved with atropine or vagal maneuvers. PE showed stable vitals, saturating 100%, afebrile. Systolic murmur (history of /MR), regular rhythm and rate. Clear chest sounds, no abdominal tenderness. No abrasions to head, head or midline spinal tenderness. Considering cardiac vs metabolic vs infectious causes of syncope. Likely admission due to poor baseline mental status and unclear history. Ordered work-up including CBC, CMP, Mg, Phos, Trop, ECG, UA/urine culture and non-contrast head CT. ECG today showed NSR with 1st degree AV block, no SVT at this time. ECG looks similar to prior. Will continue to reassess pt and monitor for symptomatic improvement. 08/13/18 16:41 [id number] RAD/CHEST X-RAY PORTABLE* AP portable chest: Syncopal episode. Dementia. Shortness of breath. Since since 12/21/2017, again noted is a weak inspiration with resultant prominent heart, unfolded aorta, fullness of the jeannette and left hilar calcifications. There may be some minimal atelectasis at the left base. The soft tissues are intact and there are degenerative changes with a slight scoliosis. Correlation recommended. 08/13/18 17:00 Labs were sent, pt taken for head CT. CBC: WBC 3.7 (similar to pt baseline). Pending CMP, troponin, and urine sample for UA. 08/13/18 17:36 CT showed no acute pathology. CMP within baseline for patient. Trop <.02. Will attempt straight cath for urine as pt has been unable to provide sample. pt does not have myers catheter at home. Awaiting admission until we can retrieve urine for UA/culture. 08/13/18 18:40 Spoke with pts who gave a more thorough story (Mrs. Banks - [phone] ). She states the pt was eating a snack at home, felt weak, and sat down. He fell onto the floor and had LOC for 20 minutes. She denies any recent illness, but states he may not be drinking enough water. Pt does not appear clinically dry. 08/13/18 18:48 Urine being sent for UA/culture. 08/13/18 18:57 Pt signed out to Dr. Snowden for pending labs and admission. Explained presentation, ED course, any pending results, and needed interventions. Pt stable and eating dinner comfortably. 08/13/18 19:08 *DC/Admit/Observation/Transfer Diagnosis at time of Disposition: Syncope Qualifiers: Syncope type: unspecified Qualified Code(s): R55 - Syncope and collapse - Discharge Dispostion Condition at time of disposition: Stable - Referrals - Patient Instructions - Post Discharge Activity
[2018-08-13 17:16] LABS: BASO % 0.8 % (0-2.0); EOS % 1.1 % (0-4.5); HEMATOCRIT 35.8 % (35.4-49); HEMOGLOBIN 11.5 GM/dL (11.7-16.9); LYMPH % 18.5 % (8-40); MCH 27.3 pg (25.7-33.7); MCHC 32.1 g/dl (32.0-35.9); MEAN PLT VOLUME 7.7 fl (7.5-11.1); MONO % 13.3 % (3.8-10.2); NEUT % 66.3 % (42.8-82.8); PLATELET COUNT 204 K/MM3 (134-434); RBC 4.21 M/mm3 (4.00-5.60); RDW 14.8 % (11.9-15.9); WHITE BLOOD COUNT 3.7 K/mm3 (4.0-10.0)
[2018-08-13 17:47] LABS: ALBUMIN 3.9 g/dl (3.4-5.0); ALK PHOS 95 U/L (45-117); ANION GAP 8 MMOL/L (8-16); BILIRUBIN,TOTAL 0.4 mg/dL (0.2-1); BLOOD UREA NITROGEN 20 mg/dL (7-18); CALCIUM 8.9 mg/dL (8.5-10.1); CHLORIDE 102 mmol/L (98-107); CO2 28 mmol/L (21-32); CREATININE 1.2 mg/dL (0.55-1.3); GLUCOSE,RANDOM 103 mg/dL (74-106); MAGNESIUM 2.2 mg/dL (1.8-2.4); PHOSPHOROUS 3.2 mg/dL (2.5-4.9); POTASSIUM 3.7 mmol/L (3.5-5.1); SGOT/AST 15 U/L (15-37); SGPT/ALT 17 U/L (13-61); SODIUM 138 mmol/L (136-145); TOT PROT 7.4 g/dl (6.4-8.2)
[2018-08-13 17:49] LABS: INR 0.96 (0.83-1.09); PROTHROMBIN TIME (PATIENT) 11.3 SEC (9.7-13.0)
--- NOTE | 2018-08-13 18:15 | PDOC ---
Attending Attestation - Resident Resident Name: ScarlettAide - ED Attending Attestation I have performed the following: I have examined & evaluated the patient, The case was reviewed & discussed with the resident, I agree w/resident's findings & plan, Exceptions are as noted - HPI HPI: 08/13/18 18:11 88 yo male had a syncopal episode at home . He became dizzy and the fainted. PMH aortic stenosis,paroxysmal SVT - Physicial Exam PE: 08/14/18 00:10 Alert 88 yo male who is a very poor historian Brought in to ER s/p syncopal episode head ncat eyes fred eomi neck supple lungs cta b/l cvs [id number] + murmer abd protuberant,nontender ext no deformities neuro alert,conversant,ambulatory, poor historain - Medical Decision Making 08/14/18 00:12 ct scan head no acute intracranial pathology neg trop imp syncope admitted to telemetry
--- NOTE | 2018-08-13 19:07 | PDOC ---
*Physical Exam - Vital Signs Last Vital Signs Temp Pulse Resp BP Pulse Ox 97.3 F L 68 20 124/69 100 08/13/18 16:04 08/13/18 16:04 08/13/18 16:04 08/13/18 16:04 08/13/18 16:04 ED Treatment Course - LABORATORY CBC & Chemistry Diagram: 08/13/18 17:07 08/13/18 17:07 - ADDITIONAL ORDERS Additional order review: Laboratory Results 08/13/18 08/13/18 08/13/18 17:07 17:07 17:07 PT with INR 11.30 INR 0.96 PTT (Actin FS) 28.1 Sodium 138 Potassium 3.7 Chloride 102 Carbon Dioxide 28 Anion Gap 8 BUN 20 H Creatinine 1.2 Creat Clearance w eGFR 57.41 Random Glucose 103 Calcium 8.9 Phosphorus 3.2 Magnesium 2.2 Total Bilirubin 0.4 AST 15 ALT 17 Alkaline Phosphatase 95 Troponin I < 0.02 Total Protein 7.4 Albumin 3.9 08/13/18 17:07 RBC 4.21 MCV 85.0 MCHC 32.1 RDW 14.8 MPV 7.7 Neutrophils % 66.3 Lymphocytes % 18.5 Monocytes % 13.3 H Eosinophils % 1.1 Basophils % 0.8 Medical Decision Making - Medical Decision Making 08/13/18 19:[address] Pantoja. 08/13/18 19:09 Pt is an 88 yo M, with PMH of /MR, SVT, DM, HLD, HTN, dementia, GERD, who presents after syncopal episode plus fall and 20 minute LOC. Patient labs grossly unconcerning as below. EKG negative. CXR negative. Head CT negative. Admitting for obs-tele for further care. Laboratory Results - last 24 hr 08/13/18 08/13/18 08/13/18 17:07 17:07 17:07 WBC 3.7 L RBC 4.21 Hgb 11.5 L Hct 35.8 MCV 85.0 MCH 27.3 MCHC 32.1 RDW 14.8 Plt Count 204 D MPV 7.7 Absolute Neuts (auto) 2.4 Neutrophils % 66.3 Lymphocytes % 18.5 Monocytes % 13.3 H Eosinophils % 1.1 Basophils % 0.8 Nucleated RBC % 0 PT with INR 11.30 INR 0.96 PTT (Actin FS) 28.1 Sodium Potassium Chloride Carbon Dioxide Anion Gap BUN Creatinine Creat Clearance w eGFR Random Glucose Calcium Phosphorus Magnesium Total Bilirubin AST ALT Alkaline Phosphatase Troponin I Total Protein Albumin Urine Color Urine Appearance Urine pH Ur Specific [place] Urine Protein Urine Glucose (UA) Urine Ketones Urine Blood Urine Nitrite Urine Bilirubin Urine Urobilinogen Ur Leukocyte Esterase 08/13/18 08/13/18 17:07 19:00 WBC RBC Hgb Hct MCV MCH MCHC RDW Plt Count MPV Absolute Neuts (auto) Neutrophils % Lymphocytes % Monocytes % Eosinophils % Basophils % Nucleated RBC % PT with INR INR PTT (Actin FS) Sodium 138 Potassium 3.7 Chloride 102 Carbon Dioxide 28 Anion Gap 8 BUN 20 H Creatinine 1.2 Creat Clearance w eGFR 57.41 Random Glucose 103 Calcium 8.9 Phosphorus 3.2 Magnesium 2.2 Total Bilirubin 0.4 AST 15 ALT 17 Alkaline Phosphatase 95 Troponin I < 0.02 Total Protein 7.4 Albumin 3.9 Urine Color Ltyellow Urine Appearance Clear Urine pH 6.0 Ur Specific [place] 1.013 Urine Protein Negative Urine Glucose (UA) Negative Urine Ketones Negative Urine Blood Negative Urine Nitrite Negative Urine Bilirubin Negative Urine Urobilinogen Negative Ur Leukocyte Esterase Negative *DC/Admit/Observation/Transfer Diagnosis at time of Disposition: Syncope Qualifiers: Syncope type: unspecified Qualified Code(s): R55 - Syncope and collapse - Discharge Dispostion Condition at time of disposition: Stable Decision to Admit order: Yes - Referrals - Patient Instructions - Post Discharge Activity
[2018-08-13 19:17] LABS: URINE APPEARANCE CLEAR; URINE BILIRUBIN NEGATIVE (<2.0 mg/dL); URINE COLOR LTYELLOW; URINE GLUCOSE (UA) NEGATIVE (NEGATIVE); URINE KETONE NEGATIVE (NEGATIVE); URINE LEUK ESTERASE NEGATIVE (NEGATIVE); URINE NITRITE NEGATIVE (NEGATIVE); URINE PROTEIN NEGATIVE (NEGATIVE); URINE UROBILINOGEN NEGATIVE mg/dL (0.2-1.0)
--- NOTE | 2018-08-14 01:18 | HP ---
Admitting History and Physical - Primary Care Physician PCP: Renetta Farley - Admission Chief Complaint: Syncopal, Fall History of Present Illness: This is a 88 y/o man with a past medical history of Dementia, HTN, HL, SV, As/MR , DM, GERD. Who presents to the ED for syncope and s/p fall at home. patient has severe Dementia unable to provide HPI. Per the ED records: Spoke with pts who gave a more thorough story (Mrs. Banks - [phone]). She states the pt was eating a snack at home, felt weak, and sat down. He fell onto the floor and had LOC for 20 minutes. She denies any recent illness, but states he may not be drinking enough water. 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 Cardiovascular: Yes: Aortic Stenosis, HTN, Hyperlipdemia, Mitral Insufficiency, Murmur Gastrointestinal: Yes: GERD Musculoskeletal: Yes: Osteoarthritis Endocrine: Yes: Diabetes Mellitus - Smoking History Smoking history: Never smoked Have you smoked in the past 12 months: No - Alcohol/Substance Use Hx Alcohol Use: No Home Medications - Allergies Allergies/Adverse Reactions: Allergies Allergy/AdvReac Type Severity Reaction Status Date / Time No Known Allergies Allergy Verified 12/21/17 01:07 - Home Medications Home Medications: Ambulatory Orders Cholecalciferol (Vitamin D3) [Vitamin D3] 5,000 unit PO DAILY 12/26/15 Hydrochlorothiazide [Hctz -] 25 mg PO DAILY 12/26/15 Acetaminophen [Tylenol .Regular Strength -] 650 mg PO Q4H PRN #0 tablet Metoprolol Tartrate [Lopressor -] 25 mg PO BID tablet 12/22/17 Memantine HCl 10 mg PO DAILY 08/13/18 Family Disease History - Family Disease History Family History: Unable to Obtain Review of Systems Unable to obtain ROS, reason: Dementia Physical Examination Vital Signs: Vital Signs Temperature 97.7 F 08/13/18 22:58 Pulse Rate 76 08/13/18 22:58 Respiratory Rate 17 08/13/18 22:58 Blood Pressure 136/72 08/13/18 22:58 O2 Sat by Pulse Oximetry (%) 100 08/13/18 22:58 Constitutional: Yes: Well Nourished, No Distress, Anxious, Obese Eyes: Yes: Conjunctiva Clear, PERRL HENT: Yes: WNL, Atraumatic, Normocephalic Neck: Yes: WNL, Supple, Trachea Midline Cardiovascular: Yes: Regular Rate and Rhythm, Murmur, S1, S2 Respiratory: Yes: WNL, Regular, CTA Bilaterally Gastrointestinal: Yes: Soft, Abdomen, Obese Renal/: Yes: Incontinence Breast(s): Yes: WNL Musculoskeletal: Yes: WNL Edema: No Peripheral Pulses WNL: Yes Integumentary: Yes: Venous Stasis Changes (PVD both legs), Other (Dry flaky skin ) Neurological: Yes: Confusion, Cran Nerves II-XII Intact ...Motor Strength: WNL Psychiatric: Yes: Alert Labs: CBC, BMP 08/13/18 17:07 08/13/18 17:07 Imaging - Results Chest X-ray: Report Reviewed, Image Reviewed Cat Scan: Report Reviewed, Image Reviewed EKG: Image Reviewed Problem List - Problems (1) Syncope Code(s): R55 - SYNCOPE AND COLLAPSE Qualifiers: Syncope type: unspecified Qualified Code(s): R55 - Syncope and collapse (2) Fall at home Code(s): W19.XXXA - UNSPECIFIED FALL, INITIAL ENCOUNTER; Y92.009 - UNSP PLACE IN UNSP NON-INSTITUT (PRIVATE) RESIDENCE PLACE (3) Dementia Code(s): F03.90 - UNSPECIFIED DEMENTIA WITHOUT BEHAVIORAL DISTURBANCE (4) Confusion Code(s): R41.0 - DISORIENTATION, UNSPECIFIED (5) Diabetes Code(s): E11.9 - TYPE 2 DIABETES MELLITUS WITHOUT COMPLICATIONS (6) Aortic stenosis Code(s): I35.0 - NONRHEUMATIC AORTIC (VALVE) STENOSIS (7) HLD (hyperlipidemia) Code(s): E78.5 - HYPERLIPIDEMIA, UNSPECIFIED (8) HTN (hypertension) Code(s): I10 - ESSENTIAL (PRIMARY) HYPERTENSION (9) Venous (peripheral) insufficiency Code(s): I87.2 - VENOUS INSUFFICIENCY (CHRONIC) (PERIPHERAL) Assessment/Plan This is a 88 y/o man with a PMHx of Dementia, HTN, HLD, SVT, /MR, DM, GERD. Placed in Telemetry Observation for further evaluation of their emergent condition. Plan: !. Cardiovascular Syncope HTN HLD /MR SVT likely secondary to arrhythmia vs tumor vs stroke Continue cardiology monitoring Serial Enzymes Appreciate Cardiology consult Appreciate Neurology consult Carotid doppler in am Echo in am EKG- SR with 1 degree AV block Chest Xray- no infiltrate or effusion CT Brain- no acute intracranial process Fall Precautions Repeat CBc, BMP in am 2. Neurology Dementia Head CT reviewed, no active ICH 3. s/p Fall at home Likely secondary to metabolic vs advance disease process Head CT reviewed, no ICH On exam: pt denies pain or any complaints Fall Precautions Would benefit from PT Consider Case Management for possible SNF or STR 4. Endocrinology Diabetes Mellitus Stable BGMs 5. GI Continue PPI FEN PO fluids as tolerated Replete lytes prn Low Na, Diabetic Diet Dispo: Observation Visit type - Emergency Visit Emergency Visit: Yes ED Registration Date: 08/13/18 Care time: The patient presented to the Emergency Department on the above date and was hospitalized for further evaluation of their emergent condition. - New Patient This patient is new to me today: Yes Date on this admission: 08/13/18 - Critical Care Critical Care patient: No
[2018-08-14] MEDS ORDERED: HALOPERIDOL LACTATE 5 MG/ML IM ONE (03:14)
[2018-08-14 07:41] VITALS: BMI 32.1
[2018-08-14 07:47] LABS: BASO % 0.7 % (0-2.0); EOS % 0.4 % (0-4.5); HEMATOCRIT 34.6 % (35.4-49); HEMOGLOBIN 11.1 GM/dL (11.7-16.9); LYMPH % 20.5 % (8-40); MCH 26.8 pg (25.7-33.7); MCHC 32.1 g/dl (32.0-35.9); MEAN CELL VOLUME 83.5 fl (80-96); MEAN PLT VOLUME 7.2 fl (7.5-11.1); MONO % 10.8 % (3.8-10.2); NEUT % 67.6 % (42.8-82.8); PLATELET COUNT 206 K/MM3 (134-434); RBC 4.15 M/mm3 (4.00-5.60); RDW 14.6 % (11.9-15.9); WHITE BLOOD COUNT 4.9 K/mm3 (4.0-10.0)
[2018-08-14 08:14] LABS: ANION GAP 6 MMOL/L (8-16); BLOOD UREA NITROGEN 17 mg/dL (7-18); CHLORIDE 102 mmol/L (98-107); CO2 30 mmol/L (21-32); CREATININE 1.1 mg/dL (0.55-1.3); GLUCOSE,RANDOM 107 mg/dL (74-106); MAGNESIUM 2.2 mg/dL (1.8-2.4); POTASSIUM 4.8 mmol/L (3.5-5.1); SODIUM 138 mmol/L (136-145)
--- NOTE | 2018-08-14 08:58 | CONSULT ---
Consult - text type - Consultation Consultation Note: Neurology History of Present Illness: Covering for Dr. 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 patient has severe Dementia unable to provide HPI. In fact, during my initial visit, he would perseverate on his and could not tell me where he's located and would answer with completely tangential response. Per the ED records, patient's indicated he was eating a snack at home, felt weak, and sat down. He fell onto the floor and had LOC for 20 minutes. She denies any recent illness, but states he may not be drinking enough water. There was no convulsive activity and patient was at baseline thereafter. CT head completed and without acute changes. Patient calm and cooperative though with baseline cognitive impairment as noted above. 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 Cardiovascular: Yes: Aortic Stenosis, HTN, Hyperlipdemia, Mitral Insufficiency, Murmur Gastrointestinal: Yes: GERD Musculoskeletal: Yes: Osteoarthritis Endocrine: Yes: Diabetes Mellitus - Smoking History Smoking history: Never smoked Have you smoked in the past 12 months: No - Alcohol/Substance Use Hx Alcohol Use: No Home Medications - Allergies Allergies/Adverse Reactions: Allergies Allergy/AdvReac Type Severity Reaction Status Date / Time No Known Allergies Allergy Verified 12/21/17 01:07 - Home Medications Home Medications: Ambulatory Orders Cholecalciferol (Vitamin D3) [Vitamin D3] 5,000 unit PO DAILY 12/26/15 Hydrochlorothiazide [Hctz -] 25 mg PO DAILY 12/26/15 Acetaminophen [Tylenol .Regular Strength -] 650 mg PO Q4H PRN #0 tablet Metoprolol Tartrate [Lopressor -] 25 mg PO BID tablet 12/22/17 Memantine HCl 10 mg PO DAILY 08/13/18 Family Disease History - Family Disease History Family History: Unable to Obtain Review of Systems Unable to obtain ROS, reason: Dementia Physical Examination Vital Signs Period Temp Pulse Resp BP Sys/Cano Pulse Ox Last 24 Hr 97.3 F-97.7 F 68-90 17-20 124-146/69-72 100-100 Constitutional: Yes: Well Nourished, No Distress, Anxious, Obese Eyes: Yes: Conjunctiva Clear, PERRL HENT: Yes: WNL, Atraumatic, Normocephalic Neck: Yes: WNL, Supple, Trachea Midline Cardiovascular: Yes: Regular Rate and Rhythm, Murmur, S1, S2 Respiratory: Yes: WNL, Regular, CTA Bilaterally Gastrointestinal: Yes: Soft, Abdomen, Obese Renal/: Yes: Incontinence Breast(s): Yes: WNL Musculoskeletal: Yes: WNL Edema: No Peripheral Pulses WNL: Yes Integumentary: Yes: Venous Stasis Changes (PVD both legs), Other (Dry flaky skin ) Neurological: CN intact, no slurred speech, tangential though process, Strenght grossly 5/5 through in upper and lower proximally and distally, sensory intact to LT, finger to nose intact CBCD WBC 4.9 K/mm3 (4.0-10.0) 08/14/18 07:20 RBC 4.15 M/mm3 (4.00-5.60) 08/14/18 07:20 Hgb 11.1 GM/dL (11.7-16.9) L 08/14/18 07:20 Hct 34.6 % (35.4-49) L 08/14/18 07:20 MCV 83.5 fl (80-96) 08/14/18 07:20 MCHC 32.1 g/dl (32.0-35.9) 08/14/18 07:20 RDW 14.6 % (11.9-15.9) 08/14/18 07:20 Plt Count 206 K/MM3 (134-434) 08/14/18 07:20 MPV 7.2 fl (7.5-11.1) L 08/14/18 07:20 CMP Sodium 138 mmol/L (136-145) 08/14/18 07:20 Potassium 4.8 mmol/L (3.5-5.1) 08/14/18 07:20 Chloride 102 mmol/L (98-107) 08/14/18 07:20 Carbon Dioxide 30 mmol/L (21-32) 08/14/18 07:20 Anion Gap 6 MMOL/L (8-16) L 08/14/18 07:20 BUN 17 mg/dL (7-18) 08/14/18 07:20 Creatinine 1.1 mg/dL (0.55-1.3) 08/14/18 07:20 Creat Clearance w eGFR > 60 (>60) 08/14/18 07:20 Random Glucose 107 mg/dL (74-106) H 08/14/18 07:20 Calcium 9.0 mg/dL (8.5-10.1) 08/14/18 07:20 Total Bilirubin 0.4 mg/dL (0.2-1) 08/13/18 17:07 AST 15 U/L (15-37) 08/13/18 17:07 ALT 17 U/L (13-61) 08/13/18 17:07 Alkaline Phosphatase 95 U/L (45-117) 08/13/18 17:07 Total Protein 7.4 g/dl (6.4-8.2) 08/13/18 17:07 Albumin 3.9 g/dl (3.4-5.0) 08/13/18 17:07 CARDIAC ENZYMES Troponin I < 0.02 ng/ml (0.00-0.05) 08/14/18 07:[address] head as above Plan 88 y/o man with a past medical history of Dementia, HTN, HL, SV, 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 patient has severe Dementia unable to provide HPI. In fact, during my initial visit, he would perseverate on his and could not tell me where he's located and would answer with completely tangential response. Per the ED records, patient's indicated he was eating a snack at home, felt weak, and sat down. He fell onto the floor and had LOC for 20 minutes. She denies any recent illness, but states he may not be drinking enough water. There was no convulsive activity and patient was at baseline thereafter. CT head completed and without acute changes. Patient calm and cooperative though with baseline cognitive impairment as noted above. Continue syncope work up, carotid doppler, echo. Maintain adequate hydration, fall precautions recommended. Monitor blood pressure, maintain normotensive range, follow up cardiology rec'd. Monitor glucose, maintain euglycemic range. Neurologically stable at this time.
--- NOTE | 2018-08-14 09:55 | EKG ---
Test Reason : Blood Pressure : / mmHG Vent. Rate : 066 BPM Atrial Rate : 066 BPM P-R Int : 240 ms QRS Dur : 082 ms QT Int : 402 ms P-R-T Axes : 065 004 053 degrees QTc Int : 421 ms POOR DATA QUALITY, INTERPRETATION MAY BE ADVERSELY AFFECTED SINUS RHYTHM WITH 1ST DEGREE A-V BLOCK MODERATE VOLTAGE CRITERIA FOR LVH, MAY BE NORMAL VARIANT BORDERLINE ECG WHEN COMPARED WITH ECG OF 21-DEC-2017 00:51, NO SIGNIFICANT CHANGE WAS FOUND Confirmed by MICHELET GARCIA, MILAD ([id number]) on 08/14/2018 9:55:33 AM Referred By: Confirmed By:MILAD TAFOYA MD
[2018-08-14] MEDS: METOPROLOL TARTRATE 25 MG TABLET (FP) PO SCH ×2 (10:30→21:51)
[2018-08-14] MEDS: MEMANTINE HCL 10 MG TABLET (FP) PO SCH (10:30)
[2018-08-14] MEDS: HYDROCHLOROTHIAZIDE 25 MG TABLET (FP) PO SCH (10:30)
--- NOTE | 2018-08-14 13:33 | ECHO ---
Version: 1 Name: MARIA LUISA NOVOA Exam: Adult Echocardiogram Study Date: 08/14/2018, 9:40 AM Age: 88 Years MMode/2D Measurements & Calculations IVSd: 1.28 cm LVIDs: 3.4 cm LVIDd: 4.5 cm LVPWd: 1.04 cm LVOT diam: 2.02 cm Ao root diam: 2.8 cm LA dimension: 4.0 cm Doppler Measurements & Calculations MV E max jalen: 60.2 cm/sec Med E/e': 13.1 MV A max jalen: 117.0 cm/sec Med Peak E' Jalen: 4.6 cm/sec MV E/A: 0.51 Lat E/e': 13.8 Lat Peak E' Jalen: 4.4 cm/sec MR max P.6 mmHg Ao max P.9 mmHg CAIO(I,D): 0.66 cm Ao mean P.7 mmHg LV V1 mean: 70.9 cm/sec Ao V2 max: 443.9 cm/sec LV V1 mean P.28 mmHg AI P1/2t: 342.6 msec TR max jalen: 215.1 cm/sec TR max P.7 mmHg Procedure A two-dimensional transthoracic echocardiogram with color flow and Doppler was performed. Left Ventricle The left ventricular size, thickness and function are normal. The left ventricular ejection fraction is normal. The left ventricular wall motion is normal. Right Ventricle The right ventricle is not well visualized. There is a pacemaker lead in the right ventricle. Atria The left atrium is mildly dilated. The right atrium is mildly dilated. Mitral Valve There is mild to moderate mitral valve thickening. There is moderate mitral annular calcification. T here is no mitral valve stenosis. There is trace to mild mitral regurgitation. Tricuspid Valve There is mild tricuspid valve thickening. There is no tricuspid stenosis. There is mild tricuspid regurgitation. Right ventricular systolic pressure is normal. Aortic Valve The aortic valve is not well visualized. There is moderate aortic valve thickening. There is moderat e aortic sclerosis.;. Severe valvular aortic stenosis. Mild to moderate aortic regurgitation. Pulmonic Valve The pulmonic valve is not well visualized. Great Vessels The aortic root is normal size. Pericardium/Pleura There is no pericardial effusion. Summary Statements The left ventricular size, thickness and function are normal The left ventricular ejection fraction is normal. The left ventricular wall motion is normal. There is mild tricuspid regurgitation. Right ventricular systolic pressure is normal. Mild to moderate aortic regurgitation. There is a pacemaker lead in the right ventricle. The right ventricle is not well visualized. There is mild to moderate mitral valve thickening. There is moderate mitral annular calcification. Severe valvular aortic stenosis. There is moderate aortic valve thickening. There is moderate aortic sclerosis.; There is trace to mild mitral regurgitation. MD Irvin Ocampo 08/14/2018, 1:33 PM Ordering Physician: Tiffany Luevano Referring Physician: ED OBRIEN Performed By: Raegan Angel
--- NOTE | 2018-08-14 14:14 | CON.CARD ---
Consult Consult Specialty:: Cardiology Referred by:: Hospitalist/Dr. Farley Reason for Consultation:: Syncope - History of Present Illness Chief Complaint: syncope History of Present Illness: 88 year old man pmh Dementia, HTN, HLD, DMII, PSVT, known Aortic stenosis reported moderate on echo 12/2017, prior admission this year for chest pain in the setting of PSVT that broke with adenosine now admitted with an episode of syncope. Pt was seen and examined today in nad. Awake and alert but confused. Unable to provide a history. Does not know where he is or why he is here. denies any complaints currently. denies chest pain, sob, palpitations, pnd, orthopnea, LE edema, denies syncope or near syncope. History was taken from chart as per pts report pt was sitting at home when he felt weak and sat down then fell to the floor and was unconscious for approximately 20min. 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: Dementia Cardio/Vascular: Yes: Aortic Stenosis, HTN, Hyperlipdemia, Mitral Insufficiency , Murmur, Other (PSVT) Gastrointestinal: Yes: GERD Musculoskeletal: Yes: Osteoarthritis Endocrine: Yes: Diabetes Mellitus - Alcohol/Substance Use Hx Alcohol Use: No - Smoking History Smoking history: Never smoked Have you smoked in the past 12 months: No - Social History Usual Living Arrangement: With Spouse ADL: Family Assistance History of Recent Travel: No Home Medications - Allergies Allergies/Adverse Reactions: Allergies Allergy/AdvReac Type Severity Reaction Status Date / Time No Known Allergies Allergy Verified 12/21/17 01:07 - Home Medications Home Medications: Ambulatory Orders Cholecalciferol (Vitamin D3) [Vitamin D3] 5,000 unit PO DAILY 12/26/15 Hydrochlorothiazide [Hctz -] 25 mg PO DAILY 12/26/15 Acetaminophen [Tylenol .Regular Strength -] 650 mg PO Q4H PRN #0 tablet Metoprolol Tartrate [Lopressor -] 25 mg PO BID tablet 12/22/17 Memantine HCl 10 mg PO DAILY 08/13/18 Family Disease History - Family Disease History Family History: Unable to Obtain Review of Systems - Review of Systems Constitutional: reports: Weakness. denies: No Symptoms, Chills, Diaphoresis, Fever, Lethargy, Loss of Appetite, Malaise, Night Sweats, Unintentional Wgt. Loss, Other Eyes: denies: No Symptoms, Blind Spots, Blurred Vision, Double Vision, Eye Pain , Floaters, Photophobia, Recent Change in Vision, Other HENT: denies: No Symptoms, Difficult Swallowing, Ear Discharge, Ear Pain, Epistaxis, Gingival Bleeding, Hearing Loss, Mouth Swelling, Nasal Congestion, Ocular Prosthesis, Throat Pain, Toothache, Ringing in Ears, Other Neck: denies: No Symptoms, Decreased ROM, Lumps, Pain on Movement, Stiffness, Swollen Glands, Tenderness, Other Cardiovascular: denies: No Symptoms, Chest Pain, Edema, Palpitations, Shortness of Breath, Other Respiratory: denies: No Symptoms, Cough, Exercise Intolerance, Hemoptysis, Orthopnea, PND, Snoring, SOB, SOB on Exertion, Wheezing, Other Gastrointestinal: denies: No Symptoms, Abdominal Pain, Bloating, Constipation, Diarrhea, Dysphagia, Indigestion, Melena, Nausea, Rectal Bleeding, Vomiting, Vomiting Blood, Other Genitourinary: denies: No Symptoms, Burning, Discharge, Dysuria, Flank Pain, Frequency, Hematuria, Incontinence, Lesions, Menses, Pain, Testicular Mass, Testicular Pain, Testicular Swelling, Urgency, Vaginal Bleeding, Other Breasts: denies: No Symptoms Reported, See HPI, Breast Implants, Discharge from Nipple, Lumps, Pain, Skin Changes, Other Musculoskeletal: denies: No Symptoms, Back Pain, Crepitus, Decreased ROM, Extremity Pain, Joint Pain, Joint Swelling, Muscle Pain, Muscle Cramps, Muscle Weakness, Other Integumentary: denies: No Symptoms, Blister, Bruising, Change in Color, Eczema, Erythema, Incision, Lesions, Lump, Pallor, Pruritis, Rash, Wound, Other Neurological: reports: Confusion, Pre-Existing Deficit, Syncope. denies: No Symptoms, Change in LOC, Change in Speech, Dizziness, Headache, Incoordination, Numbness, Parasthesia, Seizure, Tremors, Unsteady Gait, Weakness, Other Endocrine: denies: No Symptoms, Excessive Sweating, Flushing, Increased Hunger, Increased Thirst, Intolerance to Cold, Intolerance to Heat, Unexplained Weight Gain, Unexplained Weight Loss, Other Hematology/Lymphatic: denies: No Symptoms, Easily Bruised, Excessive Bleeding, Swollen Glands, Other Psychiatric: denies: No Symptoms, Altered Sleep Pattern, Anxiety, Depression, Hallucinations, Panic, Paranoia, Suicidal, Other - Risk Factors Known Risk Factors: Yes: Age, Hypertension Vital Signs: Vital Signs Temperature 97.3 F L 08/14/18 10:00 Pulse Rate 90 08/14/18 10:00 Respiratory Rate 18 08/14/18 10:00 Blood Pressure 138/59 L 08/14/18 10:00 O2 Sat by Pulse Oximetry (%) 97 08/14/18 09:00 Constitutional: Yes: No Distress, Calm Eyes: Yes: Conjunctiva Clear, EOM Intact, PERRL HENT: Yes: Atraumatic, Normocephalic Neck: Yes: Supple, Trachea Midline Respiratory: Yes: Regular, CTA Bilaterally. No: Rales, Rhonchi, SOB, Wheezes Gastrointestinal: Yes: Normal Bowel Sounds, Soft. No: Distention, Tenderness Cardiovascular: Yes: Regular Rate and Rhythm. No: Bradycardia, Tachycardia, Pulse Irregular, Gallop, Rub, Varicosities JVD: No Carotid Bruit: No PMI: Non-Displaced Heart Sounds: Yes: S1. No: S2, Split S2, S3, S4, Clicks, Gallop, Rub, Bruit Murmur: Yes: Systolic Murmur, Grade 3. No: Diastolic Murmur Musculoskeletal: Yes: WNL Extremities: Yes: WNL Edema: No Peripheral Pulses WNL: Yes Peripheral Pulses: 2+ Left Doralis Pedis, 2+ Right Dorsalis Pedis Integumentary: Yes: WNL Neurological: Yes: Alert, Confusion. No: Oriented Psychiatric: Yes: Alert. No: Oriented - Other Data Labs, Other Data: CBC, BMP 08/14/18 07:20 08/14/18 07:20 INR, PTT INR 0.96 (0.83-1.09) 08/13/18 17:07 Troponin, BNP 08/13/18 08/14/18 17:07 07:20 Troponin I < 0.02 < 0.02 Troponin, BNP 08/13/18 08/14/18 17:07 07:20 Troponin I < 0.02 < 0.02 ekg-nsr 66bpm, LVH, otherwise normal ecg Echo: Report Reviewed Imaging - Results Chest X-ray: Report Reviewed, Image Reviewed EKG: Report Reviewed, Image Reviewed Other: Report Reviewed, Image Reviewed (tele-nsr, pvcs, 4 beats nsvt) Assessment/Plan 88 year old man pmh Dementia, HTN, HLD, DMII, PSVT, known Aortic stenosis reported moderate on echo 12/2017, prior admission this year for chest pain in the setting of PSVT that broke with adenosine now admitted with an episode of syncope. Pt was seen and examined today in nad. Awake and alert but confused. Unable to provide a history. Does not know where he is or why he is here. denies any complaints currently. denies chest pain, sob, palpitations, pnd, orthopnea, LE edema, denies syncope or near syncope. History was taken from chart as per pts report pt was sitting at home when he felt weak and sat down then fell to the floor and was unconscious for approximately 20min. ECHO 08/14/18-Severe Aortic Stenosis, mld to mod AR, mild MR/TR, normal LV systolic function Syncope- -uncertain etiology however based on echo today pt does have Severe Aortic Stenosis -Syncope could be due to severe however pt appears to have advanced dementia and is unlikely to be a candidate for AVR either TAVR or SAVR -would need further information as to pts baseline mental status and the goals of care before considering further intervention -at this time would not pursue additional cardiac work up given pts advanced dementia -would also consider other etiologies of syncope such as orthostatic hypotension , and neurologic induced, medications, seizure -avoid hypotension, maintain adequate hydration PSVT-on prior admission broke with adenosine -no SVT documented on this admission
--- NOTE | 2018-08-14 15:01 | PN ---
Progress Note, Physician Chief Complaint: Syncope/Fall History of Present Illness: NAD Seen by Cardiology Echo done-Severe Aortic Stenosis, mld to mod AR, mild MR/TR, normal LV systolic function Carotid U/S pending not a candidate for AVR/TAVR or SAVR - Current Medication List Current Medications: Active Medications Hydrochlorothiazide (Hctz -) 25 mg PO DAILY [facility] Last Admin: 08/14/18 10:30 Dose: 25 mg Memantine (Namenda -) 10 mg PO DAILY [facility] Last Admin: 08/14/18 10:30 Dose: 10 mg Metoprolol Tartrate (Lopressor -) 25 mg PO BID [facility] Last Admin: 08/14/18 10:30 Dose: 25 mg - Objective Vital Signs: Vital Signs Temperature 97.3 F L 08/14/18 10:00 Pulse Rate 90 08/14/18 10:00 Respiratory Rate 18 08/14/18 10:00 Blood Pressure 138/59 L 08/14/18 10:00 O2 Sat by Pulse Oximetry (%) 97 08/14/18 09:00 Constitutional: Yes: Well Nourished, No Distress, Calm Cardiovascular: Yes: Regular Rate and Rhythm Respiratory: Yes: Regular Gastrointestinal: Yes: Normal Bowel Sounds, Soft, Abdomen, Obese Musculoskeletal: Yes: Muscle Weakness Extremities: Yes: WNL Edema: No Peripheral Pulses WNL: Yes Neurological: Yes: Alert, Pre-Existing Deficit Psychiatric: Yes: Alert Labs: CBC, BMP 08/14/18 07:20 08/14/18 07:20 INR, PTT INR 0.96 (0.83-1.09) 08/13/18 17:07 Problem List - Problems (1) Fall at home Assessment/Plan: -witness fall at home by his -CT head negative for any acute changes -Seen by Neurology and cardiology -U/S carotid pending -Echo-Severe Aortic Stenosis, mld to mod AR, mild MR/TR, normal LV systolic function Code(s): W19.XXXA - UNSPECIFIED FALL, INITIAL ENCOUNTER; Y92.009 - UNSP PLACE IN UNSP NON-INSTITUT (PRIVATE) RESIDENCE PLACE (2) Syncope Assessment/Plan: -CT head negative -Cardiology workup in progress -Echo-Severe Aortic Stenosis, mld to mod AR, mild MR/TR, normal LV systolic function -Check orthostatic BP -Check B12, Thyroid profile Code(s): R55 - SYNCOPE AND COLLAPSE Qualifiers: Syncope type: unspecified Qualified Code(s): R55 - Syncope and collapse (3) Dementia Assessment/Plan: -Worsening as per -Neurology on board -Given Haldol last evening -1:1 observation -Seroquel 25 mg HS Code(s): F03.90 - UNSPECIFIED DEMENTIA WITHOUT BEHAVIORAL DISTURBANCE Qualifiers: Dementia behavioral disturbance: with behavioral disturbance (4) Diabetes Assessment/Plan: -last A1c at 7.0 in 2013, [facility] -Novolog insulin sliding scale Code(s): E11.9 - TYPE 2 DIABETES MELLITUS WITHOUT COMPLICATIONS (5) Infestation by bed bug Assessment/Plan: -Found by nursing staff -isolation precautions Code(s): B88.8 - OTHER SPECIFIED INFESTATIONS Assessment/Plan see problem list Physical therapy DVT prophylaxis
[2018-08-14] MEDS: INSULIN SLIDING SCALE (NOVOLOG) 1 VIAL SQ SCH (16:45)
[2018-08-14] MEDS: HEPARIN NA (PORCINE) 5,000 UNITS/ML 1ML VIAL SQ SCH (21:50)
[2018-08-14] MEDS: QUEtiapine FUMARATE 25 MG TABLET (FP) PO SCH (21:51)
[2018-08-15] MEDS ORDERED: INSULIN (NOVOLOG) ASPART 100 UNITS/ML 10ML VIAL ONE (05:40)
[2018-08-15] MEDS: INSULIN SLIDING SCALE (NOVOLOG) 1 VIAL SQ SCH (06:01)
--- NOTE | 2018-08-15 09:22 | PN ---
Progress Note (short form) - Note Progress Note: Neurology History of Present Illness: Covering for Dr. 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 patient has severe Dementia unable to provide HPI. In fact, during my initial visit, he would perseverate on his and could not tell me where he's located and would answer with completely tangential response. Per the ED records, patient's indicated he was eating a snack at home, felt weak, and sat down. He fell onto the floor and had LOC for 20 minutes. She denies any recent illness, but states he may not be drinking enough water. There was no convulsive activity and patient was at baseline thereafter. CT head completed and without acute changes. Patient calm and cooperative though with baseline cognitive impairment as noted above. Echo completed and normal LV function, normal size. 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 Carotid doppler to be done this AM per nurse who I spoke to this AM. - Allergies Allergies/Adverse Reactions: Allergies Allergy/AdvReac Type Severity Reaction Status Date / Time No Known Allergies Allergy Verified 12/21/17 01:07 Active Medications Heparin Sodium (Porcine) (Heparin -) 5,000 unit SQ BID [facility] Last Admin: 08/14/18 21:50 Dose: 5,000 unit Hydrochlorothiazide (Hctz -) 25 mg PO DAILY [facility] Last Admin: 08/14/18 10:30 Dose: 25 mg Insulin Aspart (Novolog Vial Sliding Scale -) 1 vial SQ TIDAC [facility]; Protocol Last Admin: 08/15/18 06:01 Dose: Not Given Memantine (Namenda -) 10 mg PO DAILY [facility] Last Admin: 08/14/18 10:30 Dose: 10 mg Metoprolol Tartrate (Lopressor -) 25 mg PO BID [facility] Last Admin: 08/14/18 21:51 Dose: 25 mg Quetiapine Fumarate (Seroquel -) 25 mg PO HS [facility] Last Admin: 08/14/18 21:51 Dose: 25 mg Physical Examination Vital Signs Temperature 97.6 F 08/15/18 06:00 Pulse Rate 72 08/15/18 06:00 Respiratory Rate 20 08/15/18 06:00 Blood Pressure 138/75 08/15/18 06:00 O2 Sat by Pulse Oximetry (%) 99 08/15/18 01:00 Constitutional: Yes: Well Nourished, No Distress, Anxious, Obese Eyes: Yes: Conjunctiva Clear, PERRL HENT: Yes: WNL, Atraumatic, Normocephalic Neck: Yes: WNL, Supple, Trachea Midline Cardiovascular: Yes: Regular Rate and Rhythm, Murmur, S1, S2 Respiratory: Yes: WNL, Regular, CTA Bilaterally Gastrointestinal: Yes: Soft, Abdomen, Obese Renal/: Yes: Incontinence Breast(s): Yes: WNL Musculoskeletal: Yes: WNL Edema: No Peripheral Pulses WNL: Yes Integumentary: Yes: Venous Stasis Changes (PVD both legs), Other (Dry flaky skin ) Neurological: CN intact, no slurred speech, tangential though process, Strenght grossly 5/5 through in upper and lower proximally and distally, sensory intact to LT, finger to nose intact CBCD WBC 4.9 K/mm3 (4.0-10.0) 08/14/18 07:20 RBC 4.15 M/mm3 (4.00-5.60) 08/14/18 07:20 Hgb 11.1 GM/dL (11.7-16.9) L 08/14/18 07:20 Hct 34.6 % (35.4-49) L 08/14/18 07:20 MCV 83.5 fl (80-96) 08/14/18 07:20 MCHC 32.1 g/dl (32.0-35.9) 08/14/18 07:20 RDW 14.6 % (11.9-15.9) 08/14/18 07:20 Plt Count 206 K/MM3 (134-434) 08/14/18 07:20 MPV 7.2 fl (7.5-11.1) L 08/14/18 07:20 CMP Sodium 138 mmol/L (136-145) 08/14/18 07:20 Potassium 4.8 mmol/L (3.5-5.1) 08/14/18 07:20 Chloride 102 mmol/L (98-107) 08/14/18 07:20 Carbon Dioxide 30 mmol/L (21-32) 08/14/18 07:20 Anion Gap 6 MMOL/L (8-16) L 08/14/18 07:20 BUN 17 mg/dL (7-18) 08/14/18 07:20 Creatinine 1.1 mg/dL (0.55-1.3) 08/14/18 07:20 Creat Clearance w eGFR > 60 (>60) 08/14/18 07:20 Random Glucose 107 mg/dL (74-106) H 08/14/18 07:20 Calcium 9.0 mg/dL (8.5-10.1) 08/14/18 07:20 Total Bilirubin 0.4 mg/dL (0.2-1) 08/13/18 17:07 AST 15 U/L (15-37) 08/13/18 17:07 ALT 17 U/L (13-61) 08/13/18 17:07 Alkaline Phosphatase 95 U/L (45-117) 08/13/18 17:07 Total Protein 7.4 g/dl (6.4-8.2) 08/13/18 17:07 Albumin 3.9 g/dl (3.4-5.0) 08/13/18 17:07 CARDIAC ENZYMES Troponin I < 0.02 ng/ml (0.00-0.05) 08/14/18 07:[address] head as above Plan 88 y/o man with a past medical history of Dementia, HTN, HL, SV, 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 patient has severe Dementia unable to provide HPI. In fact, during my initial visit, he would perseverate on his and could not tell me where he's located and would answer with completely tangential response. Per the ED records, patient's indicated he was eating a snack at home, felt weak, and sat down. He fell onto the floor and had LOC for 20 minutes. She denies any recent illness, but states he may not be drinking enough water. There was no convulsive activity and patient was at baseline thereafter. CT head completed and without acute changes. Patient calm and cooperative though with baseline cognitive impairment as noted above. Continue syncope work up, echo reviewed. Carotid doppler pending. No objection to seroquel, low dose. Maintain adequate hydration, fall precautions recommended. Monitor blood pressure, maintain normotensive range, follow up cardiology rec'd. Monitor glucose, maintain euglycemic range.
[2018-08-15] MEDS: HEPARIN NA (PORCINE) 5,000 UNITS/ML 1ML VIAL SQ SCH ×2 (10:50→22:12)
[2018-08-15] MEDS: METOPROLOL TARTRATE 25 MG TABLET (FP) PO SCH ×2 (10:50→22:12)
[2018-08-15] MEDS: MEMANTINE HCL 10 MG TABLET (FP) PO SCH (10:50)
[2018-08-15] MEDS: HYDROCHLOROTHIAZIDE 25 MG TABLET (FP) PO SCH (10:50)
--- NOTE | 2018-08-15 10:58 | PN ---
Progress Note, Physician Chief Complaint: Syncope/Fall History of Present Illness: NAD Seen by Cardiology and neurology Echo done-Severe Aortic Stenosis, mld to mod AR, mild MR/TR, normal LV systolic function Carotid U/S pending not a candidate for AVR/TAVR or SAVR - Current Medication List Current Medications: Active Medications Heparin Sodium (Porcine) (Heparin -) 5,000 unit SQ BID [facility] Last Admin: 08/15/18 10:50 Dose: 5,000 unit Hydrochlorothiazide (Hctz -) 25 mg PO DAILY [facility] Last Admin: 08/15/18 10:50 Dose: 25 mg Insulin Aspart (Novolog Vial Sliding Scale -) 1 vial SQ TIDAC [facility]; Protocol Last Admin: 08/15/18 06:01 Dose: Not Given Memantine (Namenda -) 10 mg PO DAILY [facility] Last Admin: 08/15/18 10:50 Dose: 10 mg Metoprolol Tartrate (Lopressor -) 25 mg PO BID [facility] Last Admin: 08/15/18 10:50 Dose: 25 mg Quetiapine Fumarate (Seroquel -) 25 mg PO HS [facility] Last Admin: 08/14/18 21:51 Dose: 25 mg - Objective Vital Signs: Vital Signs Temperature 97.6 F 08/15/18 06:00 Pulse Rate 72 08/15/18 06:00 Respiratory Rate 20 08/15/18 06:00 Blood Pressure 138/75 08/15/18 06:00 O2 Sat by Pulse Oximetry (%) 99 08/15/18 01:00 Constitutional: Yes: Well Nourished, No Distress, Calm Cardiovascular: Yes: Regular Rate and Rhythm Respiratory: Yes: Regular Gastrointestinal: Yes: Normal Bowel Sounds, Soft Musculoskeletal: Yes: WNL Extremities: Yes: WNL Edema: No Peripheral Pulses WNL: Yes Neurological: Yes: Alert, Pre-Existing Deficit Psychiatric: Yes: Alert Labs: CBC, BMP 08/14/18 07:20 08/14/18 07:20 INR, PTT INR 0.96 (0.83-1.09) 08/13/18 17:07 Problem List - Problems (1) Fall at home Assessment/Plan: -witness fall at home by his -CT head negative for any acute changes -Seen by Neurology and cardiology -U/S carotid pending -Echo-Severe Aortic Stenosis, mld to mod AR, mild MR/TR, normal LV systolic function Code(s): W19.XXXA - UNSPECIFIED FALL, INITIAL ENCOUNTER; Y92.009 - UNSP PLACE IN UNSP NON-INSTITUT (PRIVATE) RESIDENCE PLACE (2) Syncope Assessment/Plan: -CT head negative -Cardiology workup in progress -Echo-Severe Aortic Stenosis, mld to mod AR, mild MR/TR, normal LV systolic function -Check orthostatic BP -Check B12, Thyroid profile Code(s): R55 - SYNCOPE AND COLLAPSE Qualifiers: Syncope type: unspecified Qualified Code(s): R55 - Syncope and collapse (3) Dementia Assessment/Plan: -Worsening as per -Neurology on board -Given Haldol last evening -1:1 observation -Seroquel 25 mg HS Code(s): F03.90 - UNSPECIFIED DEMENTIA WITHOUT BEHAVIORAL DISTURBANCE Qualifiers: Dementia behavioral disturbance: with behavioral disturbance (4) Diabetes Assessment/Plan: -last A1c at 7.0 in 2013, repeat A1c at 5.7 -no intervention indicated at this time Code(s): E11.9 - TYPE 2 DIABETES MELLITUS WITHOUT COMPLICATIONS (5) Infestation by bed bug Assessment/Plan: -Found by nursing staff -isolation precautions Code(s): B88.8 - OTHER SPECIFIED INFESTATIONS Assessment/Plan see problem list Physical therapy DVT prophylaxis
--- NOTE | 2018-08-15 14:29 | PN ---
Progress Note, Physician Chief Complaint: No complaints Dementia Tele: sinus with pvc's History of Present Illness: 88 year old man pmh Dementia, HTN, HLD, DMII, PSVT, known Aortic stenosis reported moderate on echo 12/2017, prior admission this year for chest pain in the setting of PSVT that broke with adenosine now admitted with an episode of syncope. Pt was seen and examined today in nad. Awake and alert but confused. Unable to provide a history. Does not know where he is or why he is here. denies any complaints currently. denies chest pain, sob, palpitations, pnd, orthopnea, LE edema, denies syncope or near syncope. History was taken from chart as per pts report pt was sitting at home when he felt weak and sat down then fell to the floor and was unconscious for approximately 20min. ECHO 08/14/18-Severe Aortic Stenosis, mld to mod AR, mild MR/TR, normal LV systolic function - Current Medication List Current Medications: Active Medications Heparin Sodium (Porcine) (Heparin -) 5,000 unit SQ BID [facility] Last Admin: 08/15/18 10:50 Dose: 5,000 unit Hydrochlorothiazide (Hctz -) 25 mg PO DAILY [facility] Last Admin: 08/15/18 10:50 Dose: 25 mg Memantine (Namenda -) 10 mg PO DAILY [facility] Last Admin: 08/15/18 10:50 Dose: 10 mg Metoprolol Tartrate (Lopressor -) 25 mg PO BID [facility] Last Admin: 08/15/18 10:50 Dose: 25 mg Quetiapine Fumarate (Seroquel -) 25 mg PO HS [facility] Last Admin: 08/14/18 21:51 Dose: 25 mg - Objective Vital Signs: Vital Signs Temperature 97.4 F L 08/15/18 11:36 Pulse Rate 68 08/15/18 11:36 Respiratory Rate 20 08/15/18 11:36 Blood Pressure 138/67 08/15/18 11:36 O2 Sat by Pulse Oximetry (%) 98 08/15/18 11:36 Constitutional: Yes: No Distress Neck: Yes: Supple Cardiovascular: Yes: Regular Rate and Rhythm, Murmur (+3/6 HSM RUSB), S1, S2. No: JVD Respiratory: Yes: CTA Bilaterally Gastrointestinal: Yes: Soft Labs: CBC, BMP 08/14/18 07:20 08/14/18 07:20 INR, PTT INR 0.96 (0.83-1.09) 08/13/18 17:07 Problem List - Problems (1) Aortic stenosis Code(s): I35.0 - NONRHEUMATIC AORTIC (VALVE) STENOSIS Assessment/Plan 88 year old man pmh Dementia, HTN, HLD, DMII, PSVT, known Aortic stenosis reported moderate on echo 12/2017, prior admission this year for chest pain in the setting of PSVT that broke with adenosine now admitted with an episode of syncope. Pt was seen and examined today in nad. Awake and alert but confused. Unable to provide a history. Does not know where he is or why he is here. denies any complaints currently. denies chest pain, sob, palpitations, pnd, orthopnea, LE edema, denies syncope or near syncope. History was taken from chart as per pts report pt was sitting at home when he felt weak and sat down then fell to the floor and was unconscious for approximately 20min. ECHO 08/14/18-Severe Aortic Stenosis, mld to mod AR, mild MR/TR, normal LV systolic function Syncope- -uncertain etiology however based on echo today pt does have Severe Aortic Stenosis -Syncope could be due to severe however pt appears to have advanced dementia and is unlikely to be a candidate for AVR either TAVR or SAVR -would need further information as to pts baseline mental status and the goals of care before considering further intervention -at this time would not pursue additional cardiac work up given pts advanced dementia -would also consider other etiologies of syncope such as orthostatic hypotension , and neurologic induced, medications, seizure -avoid hypotension, maintain adequate hydration -Would consider titrating down HCTZ. If does not need from bp perspective than consider stopping as patient is preload dependant given his severe aortic stenosis. PSVT-on prior admission broke with adenosine -no SVT documented on this admission Goals of care and code status need to be addressed with family and primary care team
[2018-08-15] MEDS ORDERED: LORazepam 2 MG/ML SDV VIAL IM ONE (17:55)
[2018-08-15] MEDS ORDERED: LORazepam 2 MG/ML SDV VIAL ONE (17:57)
[2018-08-15] MEDS: QUEtiapine FUMARATE 25 MG TABLET (FP) PO SCH (22:12)
--- NOTE | 2018-08-16 08:26 | PN ---
Progress Note, Physician Chief Complaint: AWAKE CONFUSED EVENTS AND NOTES REVIEWED IN [facility] FOR [facility]AFETY - Current Medication List Current Medications: Active Medications Heparin Sodium (Porcine) (Heparin -) 5,000 unit SQ BID [facility] Last Admin: 08/15/18 22:12 Dose: 5,000 unit Hydrochlorothiazide (Hctz -) 25 mg PO DAILY [facility] Last Admin: 08/15/18 10:50 Dose: 25 mg Memantine (Namenda -) 10 mg PO DAILY [facility] Last Admin: 08/15/18 10:50 Dose: 10 mg Metoprolol Tartrate (Lopressor -) 25 mg PO BID [facility] Last Admin: 08/15/18 22:12 Dose: 25 mg Quetiapine Fumarate (Seroquel -) 25 mg PO HS [facility] Last Admin: 08/15/18 22:12 Dose: 25 mg - Objective Vital Signs: Vital Signs Temperature 97.8 F 08/16/18 06:00 Pulse Rate 74 08/16/18 06:00 Respiratory Rate 20 08/16/18 06:00 Blood Pressure 132/70 08/16/18 06:00 O2 Sat by Pulse Oximetry (%) 98 08/15/18 11:36 Constitutional: Yes: Mild Distress Eyes: Yes: WNL HENT: Yes: WNL Neck: Yes: WNL Cardiovascular: Yes: WNL Respiratory: Yes: WNL Gastrointestinal: Yes: WNL Genitourinary: Yes: Incontinence Musculoskeletal: Yes: Muscle Weakness Edema: Yes Edema: LLE: Trace, RLE: Trace Peripheral Pulses WNL: Yes Integumentary: Yes: WNL Wound/Incision: Yes: Clean/Dry Neurological: Yes: Confusion Psychiatric: Yes: Other Labs: CBC, BMP 08/14/18 07:20 08/14/18 07:20 INR, PTT INR 0.96 (0.83-1.09) 08/13/18 17:07 Problem List - Problems (1) Fall at home Code(s): W19.XXXA - UNSPECIFIED FALL, INITIAL ENCOUNTER; Y92.009 - UNSP PLACE IN UNSP NON-INSTITUT (PRIVATE) RESIDENCE PLACE (2) Infestation by bed bug Code(s): B88.8 - OTHER SPECIFIED INFESTATIONS (3) Syncope Code(s): R55 - SYNCOPE AND COLLAPSE Qualifiers: Syncope type: unspecified Qualified Code(s): R55 - Syncope and collapse (4) Aortic stenosis Code(s): I35.0 - NONRHEUMATIC AORTIC (VALVE) STENOSIS (5) Confusion Code(s): R41.0 - DISORIENTATION, UNSPECIFIED (6) Dementia Code(s): F03.90 - UNSPECIFIED DEMENTIA WITHOUT BEHAVIORAL DISTURBANCE Qualifiers: Dementia behavioral disturbance: with behavioral disturbance (7) Diabetes Code(s): E11.9 - TYPE 2 DIABETES MELLITUS WITHOUT COMPLICATIONS (8) HLD (hyperlipidemia) Code(s): E78.5 - HYPERLIPIDEMIA, UNSPECIFIED Assessment/Plan PATIENT HAD SEVERE HOWEVER AT HIS AGE WILL NEED TO WEIGHT THE BENEFITS VERSUS THE RISKS FOR ANY CARDIAC PROCEDURE ESPECIALLY WITH HIS DEMENTIA . ADVANCED DIRECTIVE NEEDED FROM FAMILY. CONFUSION PSYCH EVAL WILL START SEROQUEL [facility] FOR FALL RISKS PALLIAITVE CARE EVAL HEPARIN SQ
--- NOTE | 2018-08-16 08:55 | PN ---
Progress Note (short form) - Note Progress Note: Neurology History of Present Illness: Covering for Dr. 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 patient has severe Dementia unable to provide HPI. In fact, during my initial visit, he would perseverate on his and could not tell me where he's located and would answer with completely tangential response. Per the ED records, patient's indicated he was eating a snack at home, felt weak, and sat down. He fell onto the floor and had LOC for 20 minutes. She denies any recent illness, but states he may not be drinking enough water. There was no convulsive activity and patient was at baseline thereafter. CT head completed and without acute changes. Patient calm and cooperative though with baseline cognitive impairment as noted above. Echo completed and normal LV function, normal size. Carotid doppler with moderate sized plaque without HD significantly stenosis. - Allergies Allergies/Adverse Reactions: Allergies Allergy/AdvReac Type Severity Reaction Status Date / Time No Known Allergies Allergy Verified 12/21/17 01:07 Active Medications Heparin Sodium (Porcine) (Heparin -) 5,000 unit SQ BID [facility] Last Admin: 08/15/18 22:12 Dose: 5,000 unit Hydrochlorothiazide (Hctz -) 25 mg PO DAILY [facility] Last Admin: 08/15/18 10:50 Dose: 25 mg Memantine (Namenda -) 10 mg PO DAILY [facility] Last Admin: 08/15/18 10:50 Dose: 10 mg Metoprolol Tartrate (Lopressor -) 25 mg PO BID [facility] Last Admin: 08/15/18 22:12 Dose: 25 mg Quetiapine Fumarate (Seroquel -) 25 mg PO HS [facility] Last Admin: 08/15/18 22:12 Dose: 25 mg Physical Examination Vital Signs Period Temp Pulse Resp BP Sys/Cano Pulse Ox Last 24 Hr 97.4 F-97.9 F 61-74 14-20 130-138/67-72 98 Constitutional: Yes: Well Nourished, No Distress, Anxious, Obese Eyes: Yes: Conjunctiva Clear, PERRL HENT: Yes: WNL, Atraumatic, Normocephalic Neck: Yes: WNL, Supple, Trachea Midline Cardiovascular: Yes: Regular Rate and Rhythm, Murmur, S1, S2 Respiratory: Yes: WNL, Regular, CTA Bilaterally Gastrointestinal: Yes: Soft, Abdomen, Obese Renal/: Yes: Incontinence Breast(s): Yes: WNL Musculoskeletal: Yes: WNL Edema: No Peripheral Pulses WNL: Yes Integumentary: Yes: Venous Stasis Changes (PVD both legs), Other (Dry flaky skin ) Neurological: CN intact, no slurred speech, tangential though process, Strenght grossly 5/5 through in upper and lower proximally and distally, sensory intact to LT, finger to nose intact CBCD WBC 4.9 K/mm3 (4.0-10.0) 08/14/18 07:20 RBC 4.15 M/mm3 (4.00-5.60) 08/14/18 07:20 Hgb 11.1 GM/dL (11.7-16.9) L 08/14/18 07:20 Hct 34.6 % (35.4-49) L 08/14/18 07:20 MCV 83.5 fl (80-96) 08/14/18 07:20 MCHC 32.1 g/dl (32.0-35.9) 08/14/18 07:20 RDW 14.6 % (11.9-15.9) 08/14/18 07:20 Plt Count 206 K/MM3 (134-434) 08/14/18 07:20 MPV 7.2 fl (7.5-11.1) L 08/14/18 07:20 CMP Sodium 138 mmol/L (136-145) 08/14/18 07:20 Potassium 4.8 mmol/L (3.5-5.1) 08/14/18 07:20 Chloride 102 mmol/L (98-107) 08/14/18 07:20 Carbon Dioxide 30 mmol/L (21-32) 08/14/18 07:20 Anion Gap 6 MMOL/L (8-16) L 08/14/18 07:20 BUN 17 mg/dL (7-18) 08/14/18 07:20 Creatinine 1.1 mg/dL (0.55-1.3) 08/14/18 07:20 Creat Clearance w eGFR > 60 (>60) 08/14/18 07:20 Calcium 9.0 mg/dL (8.5-10.1) 08/14/18 07:20 Total Bilirubin 0.4 mg/dL (0.2-1) 08/13/18 17:07 AST 15 U/L (15-37) 08/13/18 17:07 ALT 17 U/L (13-61) 08/13/18 17:07 Alkaline Phosphatase 95 U/L (45-117) 08/13/18 17:07 Total Protein 7.4 g/dl (6.4-8.2) 08/13/18 17:07 Albumin 3.9 g/dl (3.4-5.0) 08/13/18 17:[address] head as above Plan 88 y/o man with a past medical history of Dementia, HTN, HL, SV, 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 patient has severe Dementia unable to provide HPI. In fact, during my initial visit, he would perseverate on his and could not tell me where he's located and would answer with completely tangential response. Per the ED records, patient's indicated he was eating a snack at home, felt weak, and sat down. He fell onto the floor and had LOC for 20 minutes. She denies any recent illness, but states he may not be drinking enough water. There was no convulsive activity and patient was at baseline thereafter. CT head completed and without acute changes. Patient calm and cooperative though with baseline cognitive impairment as noted above. Continue syncope work up, echo reviewed. Carotid doppler reviewed. On seroquel 25mg, low dose. Maintain adequate hydration, fall precautions recommended. Monitor blood pressure, maintain normotensive range, follow up cardiology rec'd. Monitor glucose, maintain euglycemic range.
[2018-08-16] MEDS: MEMANTINE HCL 10 MG TABLET (FP) PO SCH (09:34)
[2018-08-16] MEDS: HEPARIN NA (PORCINE) 5,000 UNITS/ML 1ML VIAL SQ SCH ×2 (09:34→21:13)
[2018-08-16] MEDS: METOPROLOL TARTRATE 25 MG TABLET (FP) PO SCH ×3 (09:34→22:57)
[2018-08-16] MEDS: HYDROCHLOROTHIAZIDE 25 MG TABLET (FP) PO SCH (09:34)
--- NOTE | 2018-08-16 14:53 | CON.PSY ---
Psychiatry Consult Chief Complaint: 88 year old male with a sdevere Dementia with aggressive behaviour. patient seen for psych eval. Patient had been 1:1 since admissionfor Physically aggressive behaviour. Symptoms: reports: Memory Impairment, Impulsivity, Disorganized/Disruptive Thoughts - Previous Psychiatric Treatment Outpatient: None Inpatient: None - Previous Substance Abuse Treatment Outpatient: None Inpatient: None - Current Medications Current Medications: Active Medications Heparin Sodium (Porcine) (Heparin -) 5,000 unit SQ BID [facility] Last Admin: 08/16/18 09:34 Dose: 5,000 unit Hydrochlorothiazide (Hctz -) 25 mg PO DAILY [facility] Last Admin: 08/16/18 09:34 Dose: 25 mg Memantine (Namenda -) 10 mg PO DAILY [facility] Last Admin: 08/16/18 09:34 Dose: 10 mg Metoprolol Tartrate (Lopressor -) 25 mg PO BID [facility] Last Admin: 08/16/18 09:34 Dose: 25 mg - Allergies Allergies: Allergies Allergy/AdvReac Type Severity Reaction Status Date / Time No Known Allergies Allergy Verified 12/21/17 01:07 - Current Living Status Usual Living Arrangement: With Spouse - Current Mental Status Evaluation Appearance: Well Groomed Attitude: Suspicious - Affect Affect: Constrictive Appropriateness: Not Appropriate - Mood Mood: Angry - Speech/Language Expressive: Delayed - Psychomotor Activity Psychomotor Activity: Agitated - Thought Process Thought Process: Circumstantial - Thought Content Hallucinations: Absent Type: Persectory - Self Perception Self Perception: Depersonalization - Cognition Attention: Diminished Memory, Immediate Recall: Impaired Memory, Short Term: 0/3 Memory, Remote: Impaired Memory, Remote with Promptin/3 - Concentration Serial Sevens Intact: No Simple Calculations Intact: No - Abstraction Proverb Interpretation: [place]umann Judgement: Severely Impaired - Insight Insight: Impaired - Impulse Control Impulse Control: Severly Impaired - Suicidal Ideation Suicidal Ideation: No - Homicidal Ideation Homicidal Ideation: No Assessment/Plan 1) d/c seroquel. 2) Zyprerxa 10mg po biod fore Paranoia and physically aggressive bnehaviour. 3) Continew with 1:1 untill [patient seetles down. 4) watch for sedation from Zyprexa.
[2018-08-16] MEDS ORDERED: HALOPERIDOL LACTATE 5 MG/ML IM PRN (15:48)
--- NOTE | 2018-08-16 16:02 | PN ---
Progress Note, Physician Chief Complaint: The patient appears comfortable at the time of exam. No reported recurrent syncope or acute distress. Tele shows sinus rhythm with occasional VPCs. History of Present Illness: 88 year old man a PMHx of severe dementia, HTN, HLD, DMII, PSVT, known aortic stenosis reported moderate on echo 12/2017, prior admission this year for chest pain in the setting of PSVT that broke with adenosine now admitted with an episode of syncope. ECHO 08/14/18-Severe Aortic Stenosis, mld to mod AR, mild MR/TR, normal LV systolic function - Current Medication List Current Medications: Active Medications Haloperidol (Haldol Injection (Fast Acting) -) 2 mg IM Q4H PRN PRN Reason: AGITATION Heparin Sodium (Porcine) (Heparin -) 5,000 unit SQ BID [facility] Last Admin: 08/16/18 09:34 Dose: 5,000 unit Hydrochlorothiazide (Hctz -) 25 mg PO DAILY [facility] Last Admin: 08/16/18 09:34 Dose: 25 mg Memantine (Namenda -) 10 mg PO DAILY [facility] Last Admin: 08/16/18 09:34 Dose: 10 mg Metoprolol Tartrate (Lopressor -) 25 mg PO BID [facility] Last Admin: 08/16/18 09:34 Dose: 25 mg Olanzapine (Zyprexa -) 10 mg PO BID [facility] - Objective Vital Signs: Vital Signs Temperature 98.2 F 08/16/18 14:31 Pulse Rate 85 08/16/18 14:31 Respiratory Rate 18 08/16/18 14:31 Blood Pressure 137/87 08/16/18 14:31 O2 Sat by Pulse Oximetry (%) 99 08/16/18 11:18 General: Well developed. Well nourished. No acute distress. Head: Normocephalic. Atraumatic, Eyes: PERRLA, EOMI. Sclerae anicteric. Conjunctivae clear. Neck: Supple. No JVD. No bruits. Heart: Normal S1, S2: Regular rhythm and rate. III/ FERNANDO at MANDI with radiation to bilateral carotids. A2 decreased. No gallop or rub. Lungs: Symmetrical air entry. Clear to auscultation. No crackles. No wheezing or rhonchi. Abdomen: Soft. Bowel sound positive. Non tender. No masses. Extremities: No edema. No clubbing or cyanosis. PD 2+, equal bilaterally. Neuro: Intact, no focal findings. AAO X3. Labs: CBC, BMP 08/14/18 07:20 08/14/18 07:20 INR, PTT INR 0.96 (0.83-1.09) 08/13/18 17:07 Assessment/Plan 88 year old man a PMHx of severe dementia, HTN, HLD, DMII, PSVT, known aortic stenosis reported moderate on echo 12/2017, prior admission this year for chest pain in the setting of PSVT that broke with adenosine now admitted with an episode of syncope. ECHO 08/14/18-Severe Aortic Stenosis, mld to mod AR, mild MR/TR, normal LV systolic function 1) Syncope-likely due to severe aortic stenosis, however, pt appears to have advanced dementia and is unlikely to be a candidate for AVR either TAVR or SAVR. Patient's prefers conservative care, not operation. -Increase metoprolol tartrate to 50 mg BID for better heart rate control. -Discontinue HCTZ. -May discontinue tele. 2) PSVT-on prior admission broke with adenosine -no SVT documented on this admission. -Increase metoprolol tartrate to 50 mg BID for better heart rate control. Please call us for reconsult as needed.
[2018-08-16] MEDS ORDERED: PT OWN MED DRAWER 7, Y5N ONE (19:24)
[2018-08-16] MEDS: OLANZapine 10 MG TABLET PO SCH ×2 (21:12→22:57)
[2018-08-17 08:44] LABS: HEMATOCRIT 40.6 % (35.4-49); HEMOGLOBIN 13.7 GM/dL (11.7-16.9); MCH 28.3 pg (25.7-33.7); MCHC 33.7 g/dl (32.0-35.9); MEAN PLT VOLUME 8.8 fl (7.5-11.1); PLATELET COUNT 247 K/MM3 (134-434); RBC 4.83 M/mm3 (4.00-5.60); RDW 14.7 % (11.9-15.9); WHITE BLOOD COUNT 8.1 K/mm3 (4.0-10.0)
[2018-08-17 09:08] LABS: ALBUMIN 3.7 g/dl (3.4-5.0); ALK PHOS 81 U/L (45-117); ANION GAP 13 MMOL/L (8-16); BILIRUBIN,TOTAL 0.6 mg/dL (0.2-1); BLOOD UREA NITROGEN 16 mg/dL (7-18); CALCIUM 9.4 mg/dL (8.5-10.1); CHLORIDE 99 mmol/L (98-107); CO2 26 mmol/L (21-32); CREATININE 1.1 mg/dL (0.55-1.3); GLUCOSE,RANDOM 103 mg/dL (74-106); SGOT/AST 30 U/L (15-37); SGPT/ALT 18 U/L (13-61); SODIUM 137 mmol/L (136-145); TOT PROT 7.5 g/dl (6.4-8.2)
--- NOTE | 2018-08-17 09:31 | PN ---
Progress Note, Physician History of Present Illness: noted to be lethargic this am also pt hypotensive and diaphoretic--bs 131 pt did receive zyprexa and haldol - Current Medication List Current Medications: Active Medications Haloperidol (Haldol Injection (Fast Acting) -) 2 mg IM Q4H PRN PRN Reason: AGITATION Last Admin: 08/16/18 19:50 Dose: 2 mg Heparin Sodium (Porcine) (Heparin -) 5,000 unit SQ BID [facility] Last Admin: 08/16/18 21:13 Dose: 5,000 unit Hydrochlorothiazide (Hctz -) 25 mg PO DAILY [facility] Last Admin: 08/16/18 09:34 Dose: 25 mg Memantine (Namenda -) 10 mg PO DAILY [facility] Last Admin: 08/16/18 09:34 Dose: 10 mg Metoprolol Tartrate (Lopressor -) 25 mg PO BID [facility] Last Admin: 08/16/18 22:57 Dose: 25 mg Olanzapine (Zyprexa -) 10 mg PO BID [facility] Last Admin: 08/16/18 22:57 Dose: 10 mg - Objective Vital Signs: Vital Signs Temperature 97.8 F 08/17/18 02:00 Pulse Rate 79 08/17/18 02:00 Respiratory Rate 20 08/17/18 02:00 Blood Pressure 148/71 08/17/18 02:00 O2 Sat by Pulse Oximetry (%) 99 08/16/18 11:18 Cardiovascular: Yes: S1, S2 Respiratory: Yes: Regular, CTA Bilaterally Gastrointestinal: Yes: Normal Bowel Sounds, Soft Neurological: Yes: Lethargy, Weakness Labs: CBC, BMP 08/17/18 08:25 08/17/18 08:25 INR, PTT INR 0.96 (0.83-1.09) 08/13/18 17:07 Assessment/Plan - Problems (1) Fall at home Assessment/Plan: -witness fall at home by his -CT head negative for any acute changes -Seen by Neurology and cardiology -U/S carotid pending -Echo-Severe Aortic Stenosis, mld to mod AR, mild MR/TR, normal LV systolic function Code(s): W19.XXXA - UNSPECIFIED FALL, INITIAL ENCOUNTER; Y92.009 - UNSP PLACE IN UNSP NON-[facility]IDENCE PLACE (2) Syncope Assessment/Plan: -CT head negative -Cardiology workup in progress -Echo-Severe Aortic Stenosis, mld to mod AR, mild MR/TR, normal LV systolic function -Check orthostatic BP -Check B12, Thyroid profile Code(s): R55 - SYNCOPE AND COLLAPSE Qualifiers: Syncope type: unspecified Qualified Code(s): R55 - Syncope and collapse (3) Dementia Assessment/Plan: -Worsening as per -Neurology on board -Given Haldol last evening -1:1 observation -Seroquel 25 mg HS Code(s): F03.90 - UNSPECIFIED DEMENTIA WITHOUT BEHAVIORAL DISTURBANCE Qualifiers: Dementia behavioral disturbance: with behavioral disturbance (4) Diabetes Assessment/Plan: -last A1c at 7.0 in 2013, repeat A1c at 5.7 -no intervention indicated at this time Code(s): E11.9 - TYPE 2 DIABETES MELLITUS WITHOUT COMPLICATIONS (5) Infestation by bed bug Assessment/Plan: -Found by nursing staff -isolation precautions Code(s): B88.8 - OTHER SPECIFIED INFESTATIONS (6) Change in MS--Lethargic Assessment/Plan: -Maybe due lyla meds--hold and monitor-if no improvement then imaging (7) Hypotension Assessment/Plan: -Labs noted -IVF and monitor DVT prophylaxis
[2018-08-17] MEDS ORDERED: SODIUM CHLORIDE 0.9% 500 ML INFUS.BAG IV ONE (10:07)
[2018-08-17] MEDS ORDERED: SODIUM CHLORIDE 1,000 ML IV SCH (10:15)
[2018-08-17] MEDS: HEPARIN NA (PORCINE) 5,000 UNITS/ML 1ML VIAL SQ SCH ×2 (10:56→21:24)
[2018-08-17] MEDS: METOPROLOL TARTRATE 25 MG TABLET (FP) PO SCH ×2 (10:57→21:24)
[2018-08-17] MEDS: HYDROCHLOROTHIAZIDE 25 MG TABLET (FP) PO SCH (10:57)
[2018-08-17] MEDS: MEMANTINE HCL 10 MG TABLET (FP) PO SCH (10:58)
[2018-08-17] MEDS: D5-1/2NS+20 MEQ KCL - 20 MEQ/1,000 ML INFUS.BAG IV SCH (14:43)
[2018-08-17] MEDS ORDERED: PT OWN MED DRAWER 7, Y5N ONE (21:20)
[2018-08-18] MEDS: D5-1/2NS+20 MEQ KCL - 20 MEQ/1,000 ML INFUS.BAG IV SCH (02:22)
[2018-08-18 07:35] LABS: BASO % 0.4 % (0-2.0); EOS % 0.2 % (0-4.5); HEMATOCRIT 39.8 % (35.4-49); HEMOGLOBIN 13.6 GM/dL (11.7-16.9); LYMPH % 9.6 % (8-40); MCH 28.5 pg (25.7-33.7); MCHC 34.1 g/dl (32.0-35.9); MEAN CELL VOLUME 83.4 fl (80-96); MEAN PLT VOLUME 7.6 fl (7.5-11.1); MONO % 16.7 % (3.8-10.2); NEUT % 73.1 % (42.8-82.8); PLATELET COUNT 256 K/MM3 (134-434); RBC 4.77 M/mm3 (4.00-5.60); RDW 14.2 % (11.9-15.9); WHITE BLOOD COUNT 7.5 K/mm3 (4.0-10.0)
[2018-08-18 08:51] LABS: ALBUMIN 3.6 g/dl (3.4-5.0); ALK PHOS 82 U/L (45-117); ANION GAP 13 MMOL/L (8-16); BILIRUBIN,TOTAL 0.6 mg/dL (0.2-1); BLOOD UREA NITROGEN 14 mg/dL (7-18); CHLORIDE 100 mmol/L (98-107); CO2 27 mmol/L (21-32); GLUCOSE,RANDOM 93 mg/dL (74-106); POTASSIUM 4.1 mmol/L (3.5-5.1); SGOT/AST 25 U/L (15-37); SGPT/ALT 17 U/L (13-61); SODIUM 140 mmol/L (136-145); TOT PROT 7.8 g/dl (6.4-8.2)
[2018-08-18] MEDS: METOPROLOL TARTRATE 25 MG TABLET (FP) PO SCH ×2 (10:55→21:26)
[2018-08-18] MEDS: HEPARIN NA (PORCINE) 5,000 UNITS/ML 1ML VIAL SQ SCH ×2 (10:55→21:26)
[2018-08-18] MEDS: HYDROCHLOROTHIAZIDE 25 MG TABLET (FP) PO SCH (10:55)
[2018-08-18] MEDS: MEMANTINE HCL 10 MG TABLET (FP) PO SCH (10:55)
--- NOTE | 2018-08-18 12:00 | PN ---
Progress Note, Physician History of Present Illness: noted more alert this am - Current Medication List Current Medications: Active Medications Acetaminophen (Tylenol -) 325 mg PO Q4H PRN PRN Reason: PAIN Heparin Sodium (Porcine) (Heparin -) 5,000 unit SQ BID [facility] Last Admin: 08/18/18 10:55 Dose: 5,000 unit Hydrochlorothiazide (Hctz -) 25 mg PO DAILY [facility] Last Admin: 08/18/18 10:55 Dose: 25 mg Memantine (Namenda -) 10 mg PO DAILY [facility] Last Admin: 08/18/18 10:55 Dose: 10 mg Metoprolol Tartrate (Lopressor -) 25 mg PO BID [facility] Last Admin: 08/18/18 10:55 Dose: 25 mg - Objective Vital Signs: Vital Signs Temperature 98.9 F 08/18/18 06:00 Pulse Rate 91 H 08/18/18 06:00 Respiratory Rate 20 08/18/18 06:00 Blood Pressure 147/63 08/18/18 06:00 O2 Sat by Pulse Oximetry (%) 99 08/17/18 21:00 Cardiovascular: Yes: Regular Rate and Rhythm Respiratory: Yes: Regular, CTA Bilaterally Gastrointestinal: Yes: Normal Bowel Sounds, Soft Labs: CBC, BMP 08/18/18 06:30 08/18/18 06:30 INR, PTT INR 0.96 (0.83-1.09) 08/13/18 17:07 Assessment/Plan - Problems (1) Fall at home Assessment/Plan: -witness fall at home by his -CT head negative for any acute changes -Seen by Neurology and cardiology -U/S carotid pending -Echo-Severe Aortic Stenosis, mld to mod AR, mild MR/TR, normal LV systolic function Code(s): W19.XXXA - UNSPECIFIED FALL, INITIAL ENCOUNTER; Y92.009 - UNSP PLACE IN UNSP NON-[facility]ENCE PL[facility] (2) Syncope Assessment/Plan: -CT head negative -Cardiology workup in progress -Echo-Severe Aortic Stenosis, mld to mod AR, mild MR/TR, normal LV systolic function -Check orthostatic BP -Check B12, Thyroid profile Code(s): R55 - SYNCOPE AND COLLAPSE Qualifiers: Syncope type: unspecified Qualified Code(s): R55 - Syncope and collapse (3) Dementia Assessment/Plan: -Worsening as per -Neurology on board -Given Haldol last evening--now off -Seroquel 25 mg HS Code(s): F03.90 - UNSPECIFIED DEMENTIA WITHOUT BEHAVIORAL DISTURBANCE Qualifiers: Dementia behavioral disturbance: with behavioral disturbance (4) Diabetes Assessment/Plan: -last A1c at 7.0 in 2013, repeat A1c at 5.7 -no intervention indicated at this time Code(s): E11.9 - TYPE 2 DIABETES MELLITUS WITHOUT COMPLICATIONS (5) Infestation by bed bug Assessment/Plan: -Found by nursing staff -isolation precautions Code(s): B88.8 - OTHER SPECIFIED INFESTATIONS (6) Change in MS--Lethargic Assessment/Plan: -Maybe due to meds--hold and monitor-if no improvement then imaging--more alert -kep off zyprexa--only seraquel (7) Hypotension Assessment/Plan: -Labs noted -DC IVF and monitor -DVT prophylaxis
[2018-08-18] MEDS: ACETAMINOPHEN 325 MG TABLET (FP) PO PRN (21:27)
[2018-08-18] MEDS ORDERED: QUEtiapine FUMARATE 25 MG TABLET (FP) PO SCH (22:00)
[2018-08-19] MEDS: ACETAMINOPHEN 325 MG TABLET (FP) PO PRN ×2 (06:27→10:55)
--- NOTE | 2018-08-19 08:43 | PN ---
Progress Note (short form) - Note Progress Note: Neurology History of Present Illness: Covering for Dr. 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 patient has severe Dementia unable to provide HPI. In fact, during my initial visit, he would perseverate on his and could not tell me where he's located and would answer with completely tangential response. Per the ED records, patient's indicated he was eating a snack at home, felt weak, and sat down. He fell onto the floor and had LOC for 20 minutes. She denies any recent illness, but states he may not be drinking enough water. There was no convulsive activity and patient was at baseline thereafter. CT head completed and without acute changes. Patient calm and cooperative though with baseline cognitive impairment as noted above. Echo completed and normal LV function, normal size. Carotid doppler with moderate sized plaque without HD significantly stenosis. Psych note reviewed, rec'd DC seroquel and using Zyrexa 10mg twice daily, change not yet made, defer to PCP. Calm and interactive this AM, baseline Dementia with cognitive impairment. - Allergies Allergies/Adverse Reactions: Allergies Allergy/AdvReac Type Severity Reaction Status Date / Time No Known Allergies Allergy Verified 12/21/17 01:07 Active Medications Acetaminophen (Tylenol -) 325 mg PO Q4H PRN PRN Reason: PAIN Last Admin: 08/19/18 06:27 Dose: 325 mg Heparin Sodium (Porcine) (Heparin -) 5,000 unit SQ BID [facility] Last Admin: 08/18/18 21:26 Dose: 5,000 unit Hydrochlorothiazide (Hctz -) 25 mg PO DAILY [facility] Last Admin: 08/18/18 10:55 Dose: 25 mg Memantine (Namenda -) 10 mg PO DAILY [facility] Last Admin: 08/18/18 10:55 Dose: 10 mg Metoprolol Tartrate (Lopressor -) 25 mg PO BID [facility] Last Admin: 08/18/18 21:26 Dose: 25 mg Quetiapine Fumarate (Seroquel -) 25 mg PO HS [facility] Last Admin: 08/18/18 21:26 Dose: 25 mg Physical Examination Vital Signs Period Temp Pulse Resp BP Sys/Cano Pulse Ox Last 24 Hr 97.6 F-98.8 F 78-100 18-20 110-137/61-78 94-98 Constitutional: Yes: Well Nourished, No Distress, Anxious, Obese Eyes: Yes: Conjunctiva Clear, PERRL HENT: Yes: WNL, Atraumatic, Normocephalic Neck: Yes: WNL, Supple, Trachea Midline Cardiovascular: Yes: Regular Rate and Rhythm, Murmur, S1, S2 Respiratory: Yes: WNL, Regular, CTA Bilaterally Gastrointestinal: Yes: Soft, Abdomen, Obese Renal/: Yes: Incontinence Breast(s): Yes: WNL Musculoskeletal: Yes: WNL Edema: No Peripheral Pulses WNL: Yes Integumentary: Yes: Venous Stasis Changes (PVD both legs), Other (Dry flaky skin ) Neurological: CN intact, no slurred speech, tangential though process, Strenght grossly 5/5 through in upper and lower proximally and distally, sensory intact to LT, finger to nose intact CBCD WBC 7.5 K/mm3 (4.0-10.0) 08/18/18 06:30 RBC 4.77 M/mm3 (4.00-5.60) 08/18/18 06:30 Hgb 13.6 GM/dL (11.7-16.9) 08/18/18 06:30 Hct 39.8 % (35.4-49) 08/18/18 06:30 MCV 83.4 fl (80-96) 08/18/18 06:30 MCHC 34.1 g/dl (32.0-35.9) 08/18/18 06:30 RDW 14.2 % (11.9-15.9) 08/18/18 06:30 Plt Count 256 K/MM3 (134-434) 08/18/18 06:30 MPV 7.6 fl (7.5-11.1) D 08/18/18 06:30 CMP Sodium 140 mmol/L (136-145) 08/18/18 06:30 Potassium 4.1 mmol/L (3.5-5.1) 08/18/18 06:30 Chloride 100 mmol/L (98-107) 08/18/18 06:30 Carbon Dioxide 27 mmol/L (21-32) 08/18/18 06:30 Anion Gap 13 MMOL/L (8-16) 08/18/18 06:30 BUN 14 mg/dL (7-18) 08/18/18 06:30 Creatinine 1.0 mg/dL (0.55-1.3) 08/18/18 06:30 Creat Clearance w eGFR > 60 (>60) 08/18/18 06:30 Random Glucose 93 mg/dL (74-106) 08/18/18 06:30 Calcium 9.0 mg/dL (8.5-10.1) 08/18/18 06:30 Total Bilirubin 0.6 mg/dL (0.2-1) 08/18/18 06:30 AST 25 U/L (15-37) 08/18/18 06:30 ALT 17 U/L (13-61) 08/18/18 06:30 Alkaline Phosphatase 82 U/L (45-117) 08/18/18 06:30 Total Protein 7.8 g/dl (6.4-8.2) 08/18/18 06:30 Albumin 3.6 g/dl (3.4-5.0) 08/18/18 06:30 CARDIAC ENZYMES Troponin I < 0.02 ng/ml (0.00-0.05) 08/14/18 07:[address] head as above Plan 88 y/o man with a past medical history of Dementia, HTN, HL, SV, 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 patient has severe Dementia unable to provide HPI. In fact, during my initial visit, he would perseverate on his and could not tell me where he's located and would answer with completely tangential response. Per the ED records, patient's indicated he was eating a snack at home, felt weak, and sat down. He fell onto the floor and had LOC for 20 minutes. She denies any recent illness, but states he may not be drinking enough water. There was no convulsive activity and patient was at baseline thereafter. CT head completed and without acute changes. Patient calm and cooperative though with baseline cognitive impairment as noted above. Carotid doppler, echo as above. On seroquel 25mg, low dose. Psych recommended changing to Zyprexa 10mg twice daily, defer to PCP if they agree with medication change. Maintain adequate hydration, fall precautions recommended. Monitor blood pressure, maintain normotensive range, follow up cardiology rec'd. Monitor glucose, maintain euglycemic range.
[2018-08-19] MEDS: METOPROLOL TARTRATE 25 MG TABLET (FP) PO SCH ×2 (10:55→21:08)
[2018-08-19] MEDS: HYDROCHLOROTHIAZIDE 25 MG TABLET (FP) PO SCH (10:55)
[2018-08-19] MEDS: HEPARIN NA (PORCINE) 5,000 UNITS/ML 1ML VIAL SQ SCH ×2 (10:56→21:08)
[2018-08-19] MEDS: MEMANTINE HCL 10 MG TABLET (FP) PO SCH (10:56)
--- NOTE | 2018-08-19 11:15 | PN ---
Progress Note, Physician Chief Complaint: Syncope/Fall History of Present Illness: NAD Seen by Cardiology and neurology Echo done-Severe Aortic Stenosis, mld to mod AR, mild MR/TR, normal LV systolic function Carotid U/S unremarkable not a candidate for AVR/TAVR or SAVR - Current Medication List Current Medications: Active Medications Acetaminophen (Tylenol -) 325 mg PO Q4H PRN PRN Reason: PAIN Last Admin: 08/19/18 10:55 Dose: 325 mg Heparin Sodium (Porcine) (Heparin -) 5,000 unit SQ BID [facility] Last Admin: 08/19/18 10:56 Dose: 5,000 unit Hydrochlorothiazide (Hctz -) 25 mg PO DAILY [facility] Last Admin: 08/19/18 10:55 Dose: 25 mg Memantine (Namenda -) 10 mg PO DAILY [facility] Last Admin: 08/19/18 10:56 Dose: 10 mg Metoprolol Tartrate (Lopressor -) 25 mg PO BID [facility] Last Admin: 08/19/18 10:55 Dose: 25 mg - Objective Vital Signs: Vital Signs Temperature 98.1 F 08/19/18 06:00 Pulse Rate 95 H 08/19/18 06:00 Respiratory Rate 08/19/18 06:00 Blood Pressure 116/72 08/19/18 06:00 O2 Sat by Pulse Oximetry (%) 94 L 08/18/18 22:00 Constitutional: Yes: Well Nourished, No Distress, Calm Cardiovascular: Yes: Regular Rate and Rhythm Respiratory: Yes: Regular Gastrointestinal: Yes: Normal Bowel Sounds, Soft Musculoskeletal: Yes: WNL Extremities: Yes: WNL Edema: No Peripheral Pulses WNL: Yes Neurological: Yes: Alert, Pre-Existing Deficit Psychiatric: Yes: Alert Labs: CBC, BMP 08/18/18 06:30 08/18/18 06:30 INR, PTT INR 0.96 (0.83-1.09) 08/13/18 17:07 Problem List - Problems (1) Fall at home Assessment/Plan: -witness fall at home by his -CT head negative for any acute changes -Seen by Neurology and cardiology -U/S carotid unremarkable -Echo-Severe Aortic Stenosis, mld to mod AR, mild MR/TR, normal LV systolic function Code(s): W19.XXXA - UNSPECIFIED FALL, INITIAL ENCOUNTER; Y92.009 - UNSP PLACE IN [facility] (2) Syncope Assessment/Plan: -CT head negative -Cardiology on baord -Echo-Severe Aortic Stenosis, mld to mod AR, mild MR/TR, normal LV systolic function -Check orthostatic BP -Check B12, Thyroid profile Code(s): R55 - SYNCOPE AND COLLAPSE Qualifiers: Syncope type: unspecified Qualified Code(s): R55 - Syncope and collapse (3) Dementia Assessment/Plan: -Worsening as per -Neurology on board -d/c vest, monitor for 24 hours, d/c to [facility] in AM -1:1 observation discontinued -D/C seroquel -start Zyprexa 10 mg po BID Code(s): F03.90 - UNSPECIFIED DEMENTIA WITHOUT BEHAVIORAL DISTURBANCE Qualifiers: Dementia behavioral disturbance: with behavioral disturbance (4) Diabetes Assessment/Plan: -last A1c at 7.0 in 2013, repeat A1c at 5.7 -no intervention indicated at this time Code(s): E11.9 - TYPE 2 DIABETES MELLITUS WITHOUT COMPLICATIONS (5) Infestation by bed bug Assessment/Plan: -Found by nursing staff Code(s): B88.8 - OTHER SPECIFIED INFESTATIONS Assessment/Plan see problem list Physical therapy DVT prophylaxis
[2018-08-19] MEDS: OLANZapine 10 MG TABLET PO SCH ×2 (12:15→21:08)
--- NOTE | 2018-08-20 08:43 | PN ---
Progress Note (short form) - Note Progress Note: Neurology History of Present Illness: Covering for Dr. 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 patient has severe Dementia unable to provide HPI. In fact, during my initial visit, he would perseverate on his and could not tell me where he's located and would answer with completely tangential response. Per the ED records, patient's indicated he was eating a snack at home, felt weak, and sat down. He fell onto the floor and had LOC for 20 minutes. She denies any recent illness, but states he may not be drinking enough water. There was no convulsive activity and patient was at baseline thereafter. CT head completed and without acute changes. Patient calm and cooperative though with baseline cognitive impairment as noted above. Echo completed and normal LV function, normal size. Carotid doppler with moderate sized plaque without HD significantly stenosis. Psych note reviewed, rec'd DC seroquel and using Zyrexa 10mg twice daily, changes made by PCP. Calm and interactive this AM, baseline Dementia with cognitive impairment and without clear thought process. Not on restraints, being planned for rehab placement. - Allergies Allergies/Adverse Reactions: Allergies Allergy/AdvReac Type Severity Reaction Status Date / Time No Known Allergies Allergy Verified 12/21/17 01:07 Active Medications Acetaminophen (Tylenol -) 325 mg PO Q4H PRN PRN Reason: PAIN Last Admin: 08/19/18 10:55 Dose: 325 mg Heparin Sodium (Porcine) (Heparin -) 5,000 unit SQ BID [facility] Last Admin: 08/19/18 21:08 Dose: 5,000 unit Hydrochlorothiazide (Hctz -) 25 mg PO DAILY [facility] Last Admin: 08/19/18 10:55 Dose: 25 mg Memantine (Namenda -) 10 mg PO DAILY [facility] Last Admin: 08/19/18 10:56 Dose: 10 mg Metoprolol Tartrate (Lopressor -) 25 mg PO BID [facility] Last Admin: 08/19/18 21:08 Dose: 25 mg Olanzapine (Zyprexa -) 10 mg PO BID [facility] Last Admin: 08/19/18 21:08 Dose: 10 mg Physical Examination Vital Signs Period Temp Pulse Resp BP Sys/Cano Pulse Ox Last 24 Hr 97.4 F-98.0 F 67-104 17-18 100-148/65-86 98-99 Constitutional: Yes: Well Nourished, No Distress, Anxious, Obese Eyes: Yes: Conjunctiva Clear, PERRL HENT: Yes: WNL, Atraumatic, Normocephalic Neck: Yes: WNL, Supple, Trachea Midline Cardiovascular: Yes: Regular Rate and Rhythm, Murmur, S1, S2 Respiratory: Yes: WNL, Regular, CTA Bilaterally Gastrointestinal: Yes: Soft, Abdomen, Obese Renal/: Yes: Incontinence Breast(s): Yes: WNL Musculoskeletal: Yes: WNL Edema: No Peripheral Pulses WNL: Yes Integumentary: Yes: Venous Stasis Changes (PVD both legs), Other (Dry flaky skin ) Neurological: CN intact, no slurred speech, tangential though process, Strenght grossly 5/5 through in upper and lower proximally and distally, sensory intact to LT, finger to nose intact CBCD WBC 7.5 K/mm3 (4.0-10.0) 08/18/18 06:30 RBC 4.77 M/mm3 (4.00-5.60) 08/18/18 06:30 Hgb 13.6 GM/dL (11.7-16.9) 08/18/18 06:30 Hct 39.8 % (35.4-49) 08/18/18 06:30 MCV 83.4 fl (80-96) 08/18/18 06:30 MCHC 34.1 g/dl (32.0-35.9) 08/18/18 06:30 RDW 14.2 % (11.9-15.9) 08/18/18 06:30 Plt Count 256 K/MM3 (134-434) 08/18/18 06:30 MPV 7.6 fl (7.5-11.1) D 08/18/18 06:30 CMP Sodium 140 mmol/L (136-145) 08/18/18 06:30 Potassium 4.1 mmol/L (3.5-5.1) 08/18/18 06:30 Chloride 100 mmol/L (98-107) 08/18/18 06:30 Carbon Dioxide 27 mmol/L (21-32) 08/18/18 06:30 Anion Gap 13 MMOL/L (8-16) 08/18/18 06:30 BUN 14 mg/dL (7-18) 08/18/18 06:30 Creatinine 1.0 mg/dL (0.55-1.3) 08/18/18 06:30 Creat Clearance w eGFR > 60 (>60) 08/18/18 06:30 Random Glucose 93 mg/dL (74-106) 08/18/18 06:30 Calcium 9.0 mg/dL (8.5-10.1) 08/18/18 06:30 Total Bilirubin 0.6 mg/dL (0.2-1) 08/18/18 06:30 AST 25 U/L (15-37) 08/18/18 06:30 ALT 17 U/L (13-61) 08/18/18 06:30 Alkaline Phosphatase 82 U/L (45-117) 08/18/18 06:30 Total Protein 7.8 g/dl (6.4-8.2) 08/18/18 06:30 Albumin 3.6 g/dl (3.4-5.0) 08/18/18 06:30 CARDIAC ENZYMES Troponin I < 0.02 ng/ml (0.00-0.05) 08/14/18 07:[address] head as above Plan 88 y/o man with a past medical history of Dementia, HTN, HL, SV, 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 patient has severe Dementia unable to provide HPI. In fact, during my initial visit, he would perseverate on his and could not tell me where he's located and would answer with completely tangential response. Per the ED records, patient's indicated he was eating a snack at home, felt weak, and sat down. He fell onto the floor and had LOC for 20 minutes. She denies any recent illness, but states he may not be drinking enough water. There was no convulsive activity and patient was at baseline thereafter. CT head completed and without acute changes. Patient calm and cooperative though with baseline cognitive impairment as noted above. Carotid doppler, echo as above. Psych recommended Zyprexa 10mg twice daily, change made by PCP. Maintain adequate hydration, fall precautions recommended. Monitor blood pressure, maintain normotensive range, follow up cardiology rec'd. Monitor glucose, maintain euglycemic range. Not on restraints , appears to be at baseline mental status. Plan is for SNF, no objection to this.
[2018-08-20] MEDS: MEMANTINE HCL 10 MG TABLET (FP) PO SCH (10:00)
[2018-08-20] MEDS: METOPROLOL TARTRATE 25 MG TABLET (FP) PO SCH (10:00)
[2018-08-20] MEDS: OLANZapine 10 MG TABLET PO SCH (10:00)
[2018-08-20] MEDS: HYDROCHLOROTHIAZIDE 25 MG TABLET (FP) PO SCH (10:00)
[2018-08-20] MEDS: HEPARIN NA (PORCINE) 5,000 UNITS/ML 1ML VIAL SQ SCH (12:09)
--- NOTE | 2018-08-20 14:00 | DS ---
Physical Examination Vital Signs: Vital Signs Temperature 98.3 F 08/20/18 13:48 Pulse Rate 107 H 08/20/18 13:48 Respiratory Rate 18 08/20/18 13:48 Blood Pressure 145/71 08/20/18 13:48 O2 Sat by Pulse Oximetry (%) 99 08/20/18 09:00 Findings/Remarks: IN BED COMFORTABLE Constitutional: Yes: No Distress Eyes: Yes: WNL HENT: Yes: WNL Neck: Yes: WNL Cardiovascular: Yes: WNL Respiratory: Yes: WNL Gastrointestinal: Yes: WNL Renal/: Yes: Incontinence Musculoskeletal: Yes: Muscle Weakness Extremities: Yes: Other Integumentary: Yes: Venous Stasis Changes, Other Wound/Incision: Yes: Open to air Neurological: Yes: Confusion, Pre-Existing Deficit ...Motor Strength: LLE, RLE Psychiatric: Yes: Other Labs: CBC, BMP 08/18/18 06:30 08/18/18 06:30 Discharge Summary Reason For Visit: SYNCOPE Current Active Problems Fall at home (Acute) Infestation by bed bug (Acute) Syncope (Acute) Procedures: Principal: DOPPLERS/CT SCAN Hospital Course: ADMITTED WITH SYNCOPE, NEURO AND CARDIOVASCULAR WORKUP DONE, NOT A CANDIDATE FOR SURGICAL CARDIAC VALVE PROCEDURE, WILL NEED OUTPATIENT F/U TO MANAGE AORTIC/ MITRAL VALVE DISEASE. ANXIETY/AGITATION WILL NEED PSYCHIATRY F/U Condition: Stable - Instructions Diet, Activity, Other Instructions: SNF PLACEMENT FOR PT/REHAB CARDIOLOGY F/U FOR CARDIAC VALVE DISEASE NEURO/PSYCH EVAL FOR DEMENTIA Disposition: [facility] HOME [facility]ILITY - Home Medications Comprehensive Discharge Medication List: Ambulatory Orders Cholecalciferol (Vitamin D3) [Vitamin D3] 5,000 unit PO DAILY 12/26/15 Hydrochlorothiazide [Hctz -] 25 mg PO DAILY 12/26/15 Acetaminophen [Tylenol .Regular Strength -] 650 mg PO Q4H PRN #0 tablet Metoprolol Tartrate [Lopressor -] 25 mg PO BID tablet 12/22/17 Memantine HCl 10 mg PO DAILY 08/13/18 Acetaminophen [Tylenol .Regular Strength -] 325 mg PO Q4H PRN tablet 08/20/18 Heparin - 5,000 unit SQ BID vial 08/20/18 Olanzapine [ZyPREXA -] 10 mg PO BID tablet 08/20/18
[2018-08-20 18:17] VITALS: BP 124/70; PULSE 94; TEMP 98.2
== END 2018-08-20 20:20 | DRG 307 ==
LOC: JER 15:59 → JERBED 20:09 → J4W 08-14 00:36 → J4S 08-14 20:38 → OBSVTOIN 08-15 08:00 → J4S 08-16 21:51
PROVIDERS: ADMIT Internal Medicine; ATTEND Family Medicine
DX: I08.0 Rheumatic disorders of both mitral and aortic valves (principal); F03.91 Unspecified dementia, unspecified severity, with behavioral disturbance; R55 Syncope and collapse; K21.9 Gastro-esophageal reflux disease without esophagitis; F03.90 Unspecified dementia, unspecified severity, without behavioral disturbance, psychotic disturbance, mood disturbance, and anxiety; E78.5 Hyperlipidemia, unspecified; M19.90 Unspecified osteoarthritis, unspecified site; R01.1 Cardiac murmur, unspecified; E11.51 Type 2 diabetes mellitus with diabetic peripheral angiopathy without gangrene; R41.0 Disorientation, unspecified; W18.30XA Fall on same level, unspecified, initial encounter; Y92.098 Other place in other non-institutional residence as the place of occurrence of the external cause; B88.8 Other specified infestations; I95.9 Hypotension, unspecified; R53.83 Other fatigue; F41.9 Anxiety disorder, unspecified
CPT/HCPCS: 36415; 70450-TC; 71045-TC-FY; 80048; 80053; 81003; 82607; 82962; 83036; 83735; 84100; 84439; 84443; 84484; 85025; 85027; 85610; 85730; 87086; 93005; 93010; 93306-TC; 93880-TC; 97116-GP; 97162-GP; 99285-25; G0378; J1644; J7030

== ENCOUNTER 2018-09-02 16:40 | Inpatient (IN) | payer OTHER ==
[2018-09-02 17:07] VITALS: BMI 32.8
[2018-09-02] MEDS ORDERED: SODIUM CHLORIDE 1,000 ML IV STA ×2 (18:37→18:41)
--- NOTE | 2018-09-02 18:41 | PDOC ---
History of Present Illness <Tory Benitez - Last Filed: 09/02/18 20:14> - History of Present Illness Initial Comments: 09/02/18 19:23 88m with pmh of dementia, DM, HTN, HL presents with dehydration, decreased PO intake and abnormal lab results. Patient was sent by [facility] for elevated BUN, serum sodium. Patient is mumbling, not able to communicate. 09/02/18 19:27 <Seferino Prater - Last Filed: 09/02/18 21:12> - General Chief Complaint: Revisit, Lab Variance Stated Complaint: ams Time Seen by Provider: 09/02/18 18:11 Past History <Tory Benitez - Last Filed: 09/02/18 20:14> - Past Medical History Anemia: No Asthma: No Cancer: No Cardiac Disorders: Yes (HTN, /MR, SVT) CVA: No COPD: No CHF: No Dementia: Yes Diabetes: Yes GI Disorders: Yes (GERD) Disorders: No HTN: Yes Hypercholesterolemia: Yes Liver Disease: No Psychiatric Problems: Yes (Bipolar,) Seizures: No Thyroid Disease: No Other medical history: Alzheimer's, Vit D diff, - Surgical History Abdominal Surgery: No Appendectomy: No Cardiac Surgery: No Cholecystectomy: No Lung Surgery: No Neurologic Surgery: No Orthopedic Surgery: ((L) KNEE SX) - Suicide/Smoking/Psychosocial Hx Smoking History: Unknown if ever smoked Have you smoked in the past 12 months: No Hx Alcohol Use: No Drug/Substance Use Hx: No Substance Use Type: None Hx Substance Use Treatment: No <Seferino Prater - Last Filed: 09/02/18 21:12> - Past Medical History Allergies/Adverse Reactions: Allergies Allergy/AdvReac Type Severity Reaction Status Date / Time No Known Allergies Allergy Verified 12/21/17 01:07 Home Medications: Ambulatory Orders Acetaminophen 650 mg PO Q4H PRN 09/02/18 Dextrose 5 %-0.45 % Sod Chlord [Dextrose 5%-0.45% NaCl IV Soln] 60 ml IV ASDIR 09/02/18 Heparin - 5,000 unit SQ BID 09/02/18 Memantine HCl [Namenda -] 10 mg PO BID 09/02/18 Olanzapine [Zyprexa] 7.5 mg PO HS 09/02/18 Olanzapine [Zyprexa] 10 mg PO DAILY 09/02/18 Review of Systems - Review of Systems Able to Perform ROS?: No (non-verbal) <Seferino Prater - Last Filed: 09/02/18 21:12> *Physical Exam - Vital Signs Last Vital Signs Temp Pulse Resp BP Pulse Ox 98.7 F 102 H 20 108/72 98 09/02/18 18:00 09/02/18 18:00 09/02/18 18:00 09/02/18 18:00 09/02/18 18:00 <Tory Benitez - Last Filed: 09/02/18 20:14> - Vital Signs Last Vital Signs Temp Pulse Resp BP Pulse Ox 98.6 F 103 H 20 110/70 96 09/02/18 17:11 09/02/18 17:11 09/02/18 17:11 09/02/18 17:11 09/02/18 17:11 - Physical Exam General Appearance: Yes: Moderate Distress, Cachetic HEENT: positive: Other (All mucosa parched, eyes closed, ) Respiratory/Chest: positive: Lungs Clear, Respiratory Distress, Rapid RR. negative: Chest Tender Cardiovascular: positive: Regular Rhythm, Regular Rate, S1, S2 Gastrointestinal/Abdominal: positive: Normal Bowel Sounds, Flat, Soft. negative : Tender Musculoskeletal: positive: Normal Inspection, CVA Tenderness Extremity: positive: Delayed Capillary Refill Integumentary: positive: Other (Very dry skin, tenting. ) <Seferino Prater - Last Filed: 09/02/18 21:12> ED Treatment Course - LABORATORY CBC & Chemistry Diagram: 09/02/18 18:50 09/02/18 18:50 - ADDITIONAL ORDERS Additional order review: Laboratory Results 09/02/18 09/02/18 09/02/18 19:20 19:00 18:50 PT with INR INR PTT (Actin FS) Sodium Potassium Chloride Carbon Dioxide Anion Gap BUN Creatinine Creat Clearance w eGFR Random Glucose Lactic Acid Calcium Total Bilirubin AST ALT Alkaline Phosphatase Troponin I 0.04 Total Protein Albumin Urine Color Yellow Urine Appearance Cloudy Urine pH 5.0 Ur Specific [place] 1.004 L Urine Protein Negative Urine Glucose (UA) Negative Urine Ketones Negative Urine Blood 3+ H Urine Nitrite Negative Urine Bilirubin Negative Urine Urobilinogen Negative Ur Leukocyte Esterase 3+ H Urine Osmolality 128 L U Random Total Protein 25 H Ur Random Sodium < 18 L Urine Creatinine 50.0 H 09/02/18 09/02/18 09/02/18 18:50 18:50 18:50 PT with INR 15.60 H INR 1.32 H PTT (Actin FS) 27.6 Sodium 166 H* Potassium 4.9 Chloride 127 H Carbon Dioxide 27 Anion Gap 11 BUN 123 H* Creatinine 3.4 H Creat Clearance w eGFR 17.26 Random Glucose 146 H Lactic Acid 3.0 H* Calcium 9.1 Total Bilirubin 0.5 AST 89 H ALT 91 H Alkaline Phosphatase 100 Troponin I Total Protein 8.2 Albumin 3.2 L Urine Color Urine Appearance Urine pH Ur Specific [place] Urine Protein Urine Glucose (UA) Urine Ketones Urine Blood Urine Nitrite Urine Bilirubin Urine Urobilinogen Ur Leukocyte Esterase Urine Osmolality U Random Total Protein Ur Random Sodium Urine Creatinine 09/02/18 18:50 RBC 4.76 MCV 84.5 MCHC 32.0 RDW 14.6 MPV 8.9 D Neutrophils % 81.7 Lymphocytes % 6.9 L D Monocytes % 11.1 H Eosinophils % 0.2 Basophils % 0.1 - Medications Given in the ED: ED Medications Discontinued Medications Generic Name Dose Route Start Last Admin Trade Name Freq PRN Reason Stop Dose Admin Sodium Chloride 1,000 mls @ 1,000 mls/hr 09/02/18 18:37 09/02/18 19:00 Normal Saline - IV 09/02/18 19:36 1,000 mls/hr ASDIR STA Administration Sodium Chloride 1,000 mls @ 1,000 mls/hr 09/02/18 18:41 09/02/18 19:36 Normal Saline - IV 09/02/18 19:40 1,000 mls/hr ASDIR STA Administration - Additional Consults Time Called: 20:13 (Called Dr. Macias (renal frontend engineer) , awaiting call back. ) <Tory Benitez - Last Filed: 09/02/18 20:14> - LABORATORY CBC & Chemistry Diagram: 09/02/18 18:50 09/02/18 18:50 <Seferino Prater - Last Filed: 09/02/18 21:12> Medical Decision Making - Medical Decision Making 09/02/18 19:26 88m with dementia, HTNB, DM sent from [facility] for decreased PO intake, increased BUN and Sodium level. Will rehydrate patient , BUN/cr ratio elevated, pre-renal injury. Repeat labs, Urine lytes and treat accordingly. Will investigate cause of failure to thrive by ruling out infection: PNA, UTI CXR, UA, Cultures and likely admit. 09/02/18 19:27 Patient has hypovolemic hypernatremia likely due to dehydration as per his sodium, kidney function and urine osmolality and electrolytes. Patient had received 2 boluses of NS at the time a call was placed to Dr. Carmen Macias Pit Shovel Operator. Dr. Macias advised giving the patient another liter of D5NS at 100mL/h. Giving zosyn for treatment of UTI. Patient admitted to Med/Surg under the care of Dr. Collins, Hospitalist. 09/02/18 21:12 <Seferino Prater - Last Filed: 09/02/18 21:12> *DC/Admit/Observation/Transfer <Tory Benitez - Last Filed: 09/02/18 20:14> - Discharge Dispostion Decision to Admit order: Yes <Seferino Prater - Last Filed: 09/02/18 21:12> Diagnosis at time of Disposition: Dehydration with hypernatremia - Discharge Dispostion Condition at time of disposition: Stable
--- NOTE | 2018-09-02 18:49 | PDOC ---
Attending Attestation - Resident Resident Name: Seferino Prater - ED Attending Attestation I have performed the following: I have examined & evaluated the patient, The case was reviewed & discussed with the resident, I agree w/resident's findings & plan, Exceptions are as noted - HPI HPI: 88 yo M history dementia, DM, HTN, HL presents with dehydration, abnormal lab results. Patient was sent by [facility] for elevated BUN, serum sodium. Patient with unintelligible speech. - Physicial Exam PE: GENERAL: Awake, alert, +mild agitation HEAD: No signs of trauma EYES: PERRLA, EOMI, sclera anicteric, conjunctiva clear ENT: Auricles normal inspection, hearing grossly normal, nares patent, oropharynx clear without exudates. Dry mucosa. Poor dentition. NECK: Normal ROM, supple, no lymphadenopathy, JVD, or masses LUNGS: Breath sounds equal, clear to auscultation bilaterally. No wheezes, and no crackles HEART: Regular rate and rhythm, normal S1 and S2, no murmurs, rubs or gallops ABDOMEN: Soft, nontender, normoactive bowel sounds. No guarding, no rebound. No masses EXTREMITIES: Normal range of motion, no edema. No clubbing or cyanosis. No cords, erythema, or tenderness NEUROLOGICAL: Cranial nerves II through XII grossly intact. Unintelligible speech. Moving all extremities. SKIN: Warm, Dry, normal turgor, no rashes or lesions noted. - Critical Care Time Total Critical Care Time: 35 Critical Care Statement: The care of this patient involved high complexity decision making to prevent further life threatening deterioration of the patient 's condition and/or to evaluate & treat vital organ system(s) failure or risk of failure. - Medical Decision Making Pt from care home with dehydration, abnormal BUN, sodium. Labs, CXR, IVF, admission. Initial spO2 registering in 76, however, poor waveform. It was 100% when pulse ox was placed to the R ear. IV placement difficult as patient was combative and dehydrated, placed by this screen writer. Labs obtained by arterial stick.
[2018-09-02 19:21] LABS: HEMATOCRIT 40.2 % (35.4-49); HEMOGLOBIN 12.9 GM/dL (11.7-16.9); MEAN CELL VOLUME 84.5 fl (80-96); RBC 4.76 M/mm3 (4.00-5.60); WHITE BLOOD COUNT 13.6 K/mm3 (4.0-10.0)
[2018-09-02 19:22] LABS: BASO % 0.1 % (0-2.0); EOS % 0.2 % (0-4.5); LYMPH % 6.9 % (8-40); MEAN PLT VOLUME 8.9 fl (7.5-11.1); MONO % 11.1 % (3.8-10.2); NEUT % 81.7 % (42.8-82.8); PLATELET COUNT 148 K/MM3 (134-434); RDW 14.6 % (11.9-15.9)
[2018-09-02 19:28] LABS: INR 1.32 (0.83-1.09); PROTHROMBIN TIME (PATIENT) 15.6 SEC (9.7-13.0)
[2018-09-02 19:31] LABS: ACTIVATED PTT 27.6 SECONDS (25.2-36.5)
[2018-09-02 19:31] LABS: URINE APPEARANCE CLOUDY; URINE BILIRUBIN NEGATIVE (<2.0 mg/dL); URINE COLOR YELLOW; URINE GLUCOSE (UA) NEGATIVE (NEGATIVE); URINE KETONE NEGATIVE (NEGATIVE); URINE LEUK ESTERASE 3+ (NEGATIVE); URINE NITRITE NEGATIVE (NEGATIVE); URINE PROTEIN NEGATIVE (NEGATIVE); URINE UROBILINOGEN NEGATIVE mg/dL (0.2-1.0)
[2018-09-02 19:42] LABS: EPI CELLS RARE /HPF (FEW); URINE BACTERIA FEW /hpf (NONE SEEN); URINE HYALINE CAST 1 /lpf; URINE MUCUS RARE
[2018-09-02 19:56] LABS: ALBUMIN 3.2 g/dl (3.4-5.0); ALK PHOS 100 U/L (45-117); ANION GAP 11 MMOL/L (8-16); BILIRUBIN,TOTAL 0.5 mg/dL (0.2-1); CALCIUM 9.1 mg/dL (8.5-10.1); CHLORIDE 127 mmol/L (98-107); CO2 27 mmol/L (21-32); CREATININE 3.4 mg/dL (0.55-1.3); GLUCOSE,RANDOM 146 mg/dL (74-106); POTASSIUM 4.9 mmol/L (3.5-5.1); SGOT/AST 89 U/L (15-37); SGPT/ALT 91 U/L (13-61); TOT PROT 8.2 g/dl (6.4-8.2)
[2018-09-02 20:06] LABS: BLOOD UREA NITROGEN 123 mg/dL (7-18)
[2018-09-02 20:07] LABS: SODIUM 166 mmol/L (136-145)
[2018-09-02] MEDS ORDERED: PIPERACILLIN/TAZOB 3.375 GM 3.375 GM in DEXTROSE 5%-WATER - 50 ML IVPB ONE (20:23)
[2018-09-02] MEDS ORDERED: PIPERACILLIN/TAZOB 3.375 GM 3.375 GM/50 ML BAG IVPB ONE (20:53)
[2018-09-02] MEDS ORDERED: LORazepam 2 MG/ML SDV VIAL ONE (20:53)
--- NOTE | 2018-09-02 21:06 | HP ---
CHIEF COMPLAINT: dehydration, abnormal lab results Unable to obtain history from patient as he is demented, history obtained from EMR PCP: Miguelito HISTORY OF PRESENT ILLNESS: 88 male with pmh of dementia, DM, HTN, hyperlipidemia, , MR, prior SVT, sent from [facility] to inpatient for dehydration, decreased PO intake and abnormal lab results. Patient had decreased PO intake and was agitated. He had hypernatremia on labs at [place]. Unknown baseline mental status. ER course was notable for: (1) IV fluid hydration (2) CXR (3) Zosyn Recent Travel: no PAST MEDICAL HISTORY: dementia, DM, HTN, hyperlipidemia PAST SURGICAL HISTORY: unknown Social History: Smoking: unknown Alcohol: unknown Drugs: unknown Family History: unknown Allergies No Known Allergies Allergy (Verified 12/21/17 01:07) HOME MEDICATIONS: Home Medications Medication Instructions Recorded Acetaminophen 650 mg PO Q4H PRN 09/02/18 Dextrose 5 %-0.45 % Sod Chlord 60 ml IV ASDIR 09/02/18 [Dextrose 5%-0.45% NaCl IV Soln] Heparin - 5,000 unit SQ BID 09/02/18 Memantine HCl [Namenda -] 10 mg PO BID 09/02/18 Olanzapine [Zyprexa] 7.5 mg PO HS 09/02/18 Olanzapine [Zyprexa] 10 mg PO DAILY 09/02/18 REVIEW OF SYSTEMS - unable to obtain ROS as patient is demented and not able to provide history PHYSICAL EXAMINATION Vital Signs - 24 hr 09/02/18 09/02/18 09/02/18 16:41 17:11 18:00 Temperature 98.3 F 98.6 F 98.7 F Pulse Rate 83 Pulse Rate [ 103 H 102 H Right Radial] Respiratory 20 20 20 Rate Blood Pressure 96/67 Blood Pressure 110/70 108/72 [Left Arm] O2 Sat by Pulse 96 96 98 Oximetry (%) GENERAL: altered mental status, agitated HEAD: Normal with no signs of trauma. EYES: Pupils equal, round and reactive to light, extraocular movements intact, sclera anicteric, conjunctiva clear. No lid lag. EARS, NOSE, THROAT: dry mucous membranes, no injection NECK: Normal range of motion, supple without lymphadenopathy, JVD, or masses. LUNGS: Breath sounds equal, clear to auscultation bilaterally. No wheezes, and no crackles. No accessory muscle use. HEART: borderline tahcycardia, no murmurs appreciated ABDOMEN: Soft, nontender, not distended, normoactive bowel sounds, no guarding, no rebound, no masses. No hepatomegaly or splenomegaly. MUSCULOSKELETAL: Normal range of motion at all joints. No bony deformities or tenderness. No CVA tenderness. UPPER EXTREMITIES: 2+ pulses, warm, well-perfused. No cyanosis. No clubbing. No peripheral edema. LOWER EXTREMITIES: 2+ pulses, warm, well-perfused. No calf tenderness. No peripheral edema. PSYCHIATRIC: AMS SKIN: very skin, poor turgor Laboratory Results - last 24 hr 09/02/18 09/02/18 09/02/18 18:50 18:50 18:50 WBC 13.6 H RBC 4.76 Hgb 12.9 Hct 40.2 MCV 84.5 MCH 27.0 MCHC 32.0 RDW 14.6 Plt Count 148 D MPV 8.9 D Absolute Neuts (auto) 11.1 H Neutrophils % 81.7 Lymphocytes % 6.9 L D Monocytes % 11.1 H Eosinophils % 0.2 Basophils % 0.1 Nucleated RBC % 0 PT with INR 15.60 H INR 1.32 H PTT (Actin FS) 27.6 Sodium 166 H* Potassium 4.9 Chloride 127 H Carbon Dioxide 27 Anion Gap 11 BUN 123 H* Creatinine 3.4 H Creat Clearance w eGFR 17.26 Random Glucose 146 H Lactic Acid Calcium 9.1 Total Bilirubin 0.5 AST 89 H ALT 91 H Alkaline Phosphatase 100 Troponin I Total Protein 8.2 Albumin 3.2 L Urine Color Urine Appearance Urine pH Ur Specific [place] Urine Protein Urine Glucose (UA) Urine Ketones Urine Blood Urine Nitrite Urine Bilirubin Urine Urobilinogen Ur Leukocyte Esterase Urine WBC (Auto) Urine RBC (Auto) Ur Epithelial Cells Urine Bacteria Hyaline Casts Urine Mucus Urine Osmolality U Random Total Protein Ur Random Sodium Urine Creatinine 09/02/18 09/02/18 09/02/18 18:50 18:50 19:00 WBC RBC Hgb Hct MCV MCH MCHC RDW Plt Count MPV Absolute Neuts (auto) Neutrophils % Lymphocytes % Monocytes % Eosinophils % Basophils % Nucleated RBC % PT with INR INR PTT (Actin FS) Sodium Potassium Chloride Carbon Dioxide Anion Gap BUN Creatinine Creat Clearance w eGFR Random Glucose Lactic Acid 3.0 H* Calcium Total Bilirubin AST ALT Alkaline Phosphatase Troponin I 0.04 Total Protein Albumin Urine Color Yellow Urine Appearance Cloudy Urine pH 5.0 Ur Specific [place] 1.004 L Urine Protein Negative Urine Glucose (UA) Negative Urine Ketones Negative Urine Blood 3+ H Urine Nitrite Negative Urine Bilirubin Negative Urine Urobilinogen Negative Ur Leukocyte Esterase 3+ H Urine WBC (Auto) 24 Urine RBC (Auto) 3 Ur Epithelial Cells Rare Urine Bacteria Few Hyaline Casts 1 Urine Mucus Rare Urine Osmolality U Random Total Protein Ur Random Sodium Urine Creatinine 09/02/18 19:20 WBC RBC Hgb Hct MCV MCH MCHC RDW Plt Count MPV Absolute Neuts (auto) Neutrophils % Lymphocytes % Monocytes % Eosinophils % Basophils % Nucleated RBC % PT with INR INR PTT (Actin FS) Sodium Potassium Chloride Carbon Dioxide Anion Gap BUN Creatinine Creat Clearance w eGFR Random Glucose Lactic Acid Calcium Total Bilirubin AST ALT Alkaline Phosphatase Troponin I Total Protein Albumin Urine Color Urine Appearance Urine pH Ur Specific [place] Urine Protein Urine Glucose (UA) Urine Ketones Urine Blood Urine Nitrite Urine Bilirubin Urine Urobilinogen Ur Leukocyte Esterase Urine WBC (Auto) Urine RBC (Auto) Ur Epithelial Cells Urine Bacteria Hyaline Casts Urine Mucus Urine Osmolality 128 L U Random Total Protein 25 H Ur Random Sodium < 18 L Urine Creatinine 50.0 H Imaging studies reviewed ekg showed sinus tachycardia ASSESSMENT/PLAN: 88yo man sent from [place] for severe hypernatremia and ZAID likely due to dehydration. #Hypernatremia- likely due to insatiable fluid loss, dehydration. Free water deficit calculated at about 10 liters. Likely chronic free water loss as patient was hemodynamically stable. S/p about 1.5L NS in ER. Dr. Lawson of nephrology consulted and recommended NS/D5W at 125cc/hr. -recheck BMP, monitor q 6hrs -start NS/D5W at 125cc/hr -aim to correct Na no more than 10 Meq in 24hrs -renal consult -myers cather -i/o -daily weights #ZAID- likely prerenal given patient's dehydration, FENA <1, Na urine <18, support prerenal cause. -urine osm -serum osm -renal U/S -avoid nehrotoxins #Leukocytosis, +lactate- , pyuria- uncertain if from UTI or from dehydration. -f/u urine culture -z/p zosyn in ER -monitor for fever -monitor WBC #HTN -avoid antihypertensives for now as pt came in borderline hypotensive #DM -send a1c -insulin sliding scale #DVT ppx -heparin sc Diet- NPO for now Visit type - Emergency Visit Emergency Visit: Yes ED Registration Date: 09/02/18 Care time: The patient presented to the Emergency Department on the above date and was hospitalized for further evaluation of their emergent condition. - New Patient This patient is new to me today: Yes Date on this admission: 09/02/18 - Critical Care Critical Care patient: No
[2018-09-02] MEDS ORDERED: OLANZapine 2.5 MG TABLET PO SCH (22:00)
[2018-09-02] MEDS: DEXTROSE 5%-NORMAL SALINE 1,000 ML IV SCH (22:24)
[2018-09-02] MEDS: HEPARIN NA (PORCINE) 5,000 UNITS/ML 1ML VIAL SQ SCH (22:25)
[2018-09-02 22:36] LABS: ANION GAP 15 MMOL/L (8-16); CALCIUM 8.5 mg/dL (8.5-10.1); CHLORIDE 126 mmol/L (98-107); CO2 24 mmol/L (21-32); CREATININE 3.2 mg/dL (0.55-1.3); GLUCOSE,RANDOM 156 mg/dL (74-106); POTASSIUM 3.8 mmol/L (3.5-5.1)
[2018-09-02 22:40] LABS: BLOOD UREA NITROGEN 122 mg/dL (7-18); SODIUM 165 mmol/L (136-145)
[2018-09-02] MEDS: MEMANTINE HCL 10 MG TABLET (FP) PO SCH (22:59)
[2018-09-03] MEDS: DEXTROSE 5%-NORMAL SALINE 1,000 ML IV SCH (02:29)
[2018-09-03 03:42] LABS: ANION GAP 9 MMOL/L (8-16); CALCIUM 8.2 mg/dL (8.5-10.1); CHLORIDE 131 mmol/L (98-107); CO2 26 mmol/L (21-32); CREATININE 2.8 mg/dL (0.55-1.3); GLUCOSE,RANDOM 281 mg/dL (74-106); POTASSIUM 3.7 mmol/L (3.5-5.1)
[2018-09-03 03:46] LABS: BLOOD UREA NITROGEN 108 mg/dL (7-18); SODIUM 166 mmol/L (136-145)
[2018-09-03 07:17] LABS: HEMATOCRIT 37.1 % (35.4-49); HEMOGLOBIN 11.1 GM/dL (11.7-16.9); MCH 25.8 pg (25.7-33.7); MEAN PLT VOLUME 8.3 fl (7.5-11.1); PLATELET COUNT 118 K/MM3 (134-434); RBC 4.32 M/mm3 (4.00-5.60); RDW 14.5 % (11.9-15.9); WHITE BLOOD COUNT 12.1 K/mm3 (4.0-10.0)
[2018-09-03] MEDS: INSULIN SLIDING SCALE (NOVOLOG) 1 VIAL SQ SCH ×3 (07:36→18:00)
[2018-09-03 08:10] LABS: ANION GAP 10 MMOL/L (8-16); BLOOD UREA NITROGEN 102 mg/dL (7-18); CALCIUM 8.3 mg/dL (8.5-10.1); CHLORIDE 133 mmol/L (98-107); CO2 25 mmol/L (21-32); CREATININE 2.5 mg/dL (0.55-1.3); GLUCOSE,RANDOM 214 mg/dL (74-106); MAGNESIUM 3.7 mg/dL (1.8-2.4); POTASSIUM 3.8 mmol/L (3.5-5.1); URIC ACID 9.7 mg/dL (2.6-7.2)
[2018-09-03 09:14] LABS: SODIUM 168 mmol/L (136-145)
[2018-09-03] MEDS: MEMANTINE HCL 10 MG TABLET (FP) PO SCH ×2 (10:39→21:42)
[2018-09-03] MEDS: HEPARIN NA (PORCINE) 5,000 UNITS/ML 1ML VIAL SQ SCH ×2 (10:39→22:59)
--- NOTE | 2018-09-03 10:48 | CONSULT ---
Consult - text type - Consultation Consultation Note: Renal consult for Hypernatremia and ZAID This is a 88 year old gentleman with hx of Dementia, hypertension, , Hyperlipidemia who presented from [place] with dehydration and hypernatremia amd ZAID. Pt is unable to provide any history at this time. Called and she reports that his baseline mental status is very confused and he is lethargic at times as well. PMhx: as above Allergies: NKDA Family Hx: NC Social Hx: No T/A/D ROS: unable to obtain because of clinical status Home Medications Medication Instructions Recorded Acetaminophen 650 mg PO Q4H PRN 09/02/18 Dextrose 5 %-0.45 % Sod Chlord 60 ml IV ASDIR 09/02/18 [Dextrose 5%-0.45% NaCl IV Soln] Heparin - 5,000 unit SQ BID 09/02/18 Memantine HCl [Namenda -] 10 mg PO BID 09/02/18 Olanzapine [Zyprexa] 7.5 mg PO HS 09/02/18 Olanzapine [Zyprexa] 10 mg PO DAILY 09/02/18 Vital Signs Temperature 97.7 F 09/03/18 10:45 Pulse Rate 99 H 09/03/18 10:45 Respiratory Rate 18 09/03/18 10:45 Blood Pressure 119/59 L 09/03/18 10:45 O2 Sat by Pulse Oximetry (%) 98 09/03/18 00:02 Intake & Output 08/31/18 09/01/18 09/02/18 09/03/18 23:59 23:59 23:59 23:59 Intake Total 3500 Output Total 100 600 Balance -100 2900 Weight 109.86 kg NAD Lethargic groans to verbal stimuli but not alert RRR CTA, no rales or wheeze dry MM obese, soft NT/ND Abd No LE edmea CBC, BMP 09/03/18 06:00 09/03/18 06:00 Current Medications Heparin Sodium (Porcine) (Heparin -) 5,000 unit SQ BID [facility] Last Admin: 09/03/18 10:39 Dose: 5,000 unit Dextrose/Sodium Chloride (D5-Ns -) 1,000 mls @ 125 mls/hr IV ASDIR [facility] Last Admin: 09/03/18 02:29 Dose: 125 mls/hr Insulin Aspart (Novolog Vial Sliding Scale -) 1 vial SQ ACHS [facility]; Protocol Last Admin: 09/03/18 07:36 Dose: 2 units Memantine (Namenda -) 10 mg PO BID [facility] Last Admin: 09/03/18 10:39 Dose: Not Given Olanzapine (Zyprexa -) 7.5 mg PO HS [facility] Last Admin: 09/02/18 22:59 Dose: Not Given 88 year old gentleman with hx of Dementia, hypertension, , Hyperlipidemia who presented [place] with dehydration and hypernatremia and ZAID. #ZAID likely due to intravascular volume depletion (Baseline Cr 1.1) #Hypernatremia in setting of Dementia and poor oral intake (water deficit is 12.9L) #Anemia #Hx of Hypertension (now normotensive) #Dementia Renal function improving since admission with IVF Check Kidney and Bladder US to ensure there is no obstruction continue isotonic saline for now despite hypernatermia given ZAID and hypovolemia Trend renal function and electrolytes continue supportive care oral water intake when mental status improves continue supportive care Thank you Sarkis Abebe DO
--- NOTE | 2018-09-03 11:36 | EKG ---
Test Reason : Blood Pressure : / mmHG Vent. Rate : 102 BPM Atrial Rate : 102 BPM P-R Int : 170 ms QRS Dur : 086 ms QT Int : 362 ms P-R-T Axes : 052 -14 047 degrees QTc Int : 471 ms SINUS TACHYCARDIA POSSIBLE LEFT ATRIAL ENLARGEMENT LEFT VENTRICULAR HYPERTROPHY ABNORMAL ECG WHEN COMPARED WITH ECG OF 13-AUG-2018 16:16, [place] INTERVAL HAS DECREASED VENT. RATE HAS INCREASED BY [address] NO LONGER ELEVATED IN ANTEROLATERAL LEADS QT HAS LENGTHENED Confirmed by Jaylan Brewer MD ([id number]) on 09/03/2018 11:35:53 AM Referred By: Confirmed By:Jaylan Brewer MD
[2018-09-03 12:33] LABS: ALBUMIN 2.6 g/dl (3.4-5.0); ALK PHOS 79 U/L (45-117); ANION GAP 8 MMOL/L (8-16); BILIRUBIN,TOTAL 0.4 mg/dL (0.2-1); BLOOD UREA NITROGEN 89 mg/dL (7-18); CALCIUM 8.4 mg/dL (8.5-10.1); CHLORIDE 137 mmol/L (98-107); CO2 27 mmol/L (21-32); CREATININE 2.3 mg/dL (0.55-1.3); GLUCOSE,RANDOM 162 mg/dL (74-106); POTASSIUM 3.8 mmol/L (3.5-5.1); SGOT/AST 66 U/L (15-37); SGPT/ALT 78 U/L (13-61); TOT PROT 6.5 g/dl (6.4-8.2)
[2018-09-03 12:58] LABS: SODIUM 172 mmol/L (136-145)
--- NOTE | 2018-09-03 13:33 | PN ---
Progress Note (short form) - Note Progress Note: ID Consult dictated 88 y/o male admitted [place] with anorexia, dehydration, Hypernatremia BC + GPCC R/O streptococcal bacteremia/ sepsis Will repeat BC Await culture results Empiric ceftriaxone + vancomycin x1
[2018-09-03] MEDS ORDERED: VANCOMYCIN 1 GRAM (PRE-DOCKED) 1,000 MG/250 ML BAG IVPB ONE (13:35)
--- NOTE | 2018-09-03 13:50 | PN ---
Progress Note, Physician Chief Complaint: patient is lethargic not talking not taking medications wbc count elevated Na is 173 from 168 - Current Medication List Current Medications: Active Medications Heparin Sodium (Porcine) (Heparin -) 5,000 unit SQ BID [facility] Last Admin: 09/03/18 10:39 Dose: 5,000 unit Dextrose/Sodium Chloride (D5-Ns -) 1,000 mls @ 125 mls/hr IV ASDIR [facility] Last Admin: 09/03/18 02:29 Dose: 125 mls/hr Ceftriaxone Sodium 1 gm/ (Dextrose) 50 mls @ 100 mls/hr IVPB DAILY [facility]; Protocol Vancomycin HCl (Vancomycin (Pre-Docked)) 1,000 mg in 250 mls @ 166.667 mls/hr IVPB ONCE ONE; Protocol Stop: 09/03/18 15:04 Insulin Aspart (Novolog Vial Sliding Scale -) 1 vial SQ Q6HPO [facility]; Protocol Memantine (Namenda -) 10 mg PO BID [facility] Last Admin: 09/03/18 10:39 Dose: Not Given Olanzapine (Zyprexa -) 7.5 mg PO HS [facility] Last Admin: 09/02/18 22:59 Dose: Not Given - Objective Vital Signs: Vital Signs Temperature 97.7 F 09/03/18 10:45 Pulse Rate 99 H 09/03/18 10:45 Respiratory Rate 18 09/03/18 10:45 Blood Pressure 119/59 L 09/03/18 10:45 O2 Sat by Pulse Oximetry (%) 98 09/03/18 09:00 Constitutional: Yes: Calm Cardiovascular: Yes: Regular Rate and Rhythm, S1 Respiratory: Yes: Diminished Gastrointestinal: Yes: Normal Bowel Sounds, Soft Extremities: Yes: Other (chronic skin changes) Neurological: Yes: Other (not verbal) Labs: CBC, BMP 09/03/18 06:00 09/03/18 11:10 INR, PTT INR 1.32 (0.83-1.09) H 09/02/18 18:50 Problem List - Problems (1) Dehydration with hypernatremia Assessment/Plan: renal on board will change fluids to 1/2NS @ 100cc per hr and will then recheck cmp in evening NPO shree zhong palliative order Code(s): E87.0 - HYPEROSMOLALITY AND HYPERNATREMIA (2) Bacteremia Assessment/Plan: ceftriaxone and vancomycin awaiting final cultures Code(s): R78.81 - BACTEREMIA (3) Dementia Assessment/Plan: dr lacy consult patient not taking in oral meds on vest adn wrist restraints Code(s): F03.90 - UNSPECIFIED DEMENTIA WITHOUT BEHAVIORAL DISTURBANCE Qualifiers: Dementia behavioral disturbance: with behavioral disturbance (4) Change in mental status Assessment/Plan: neuro eval monitor sodium ivf repeat bmp tried calling no answer jazmine get pulm eval as well given inc lactic acid and wbc count Code(s): R41.82 - ALTERED MENTAL STATUS, UNSPECIFIED Assessment/Plan called bharath on phone no answer no voicemail is set up patient is DNR poor prognosis
--- NOTE | 2018-09-03 14:08 | CONS ---
DATE OF CONSULTATION: 09/03/2018 HISTORY OF PRESENT ILLNESS: The patient is an 88-year-old male who is evaluated for positive blood cultures. His history was obtained from his chart as he cannot give a history secondary to dementia. The patient is a custodial resident. At the custodial, it was reported that he had poor oral intake and was noted to have an elevated BUN and hypernatremia. He was transferred to the emergency room, where he was given IV fluids. He was noted to have an elevated white blood cell count and lactic acidosis. Blood cultures are now positive for Gram-positive cocci in chains. The patient is unable to give any additional history. There are no reports of high-grade fevers, shaking chills, labored breathing, cough, sputum production, hemoptysis, vomiting or diarrhea. He has erythema in the sacral area. However, there are no reports of infected decubitus ulcers or infected skin lesions. PAST MEDICAL HISTORY: Positive for dementia, hypertension, diabetes mellitus, hyperlipidemia, valvular heart disease, gastroesophageal reflux disease, bipolar disorder, benign prostatic hypertrophy. ALLERGIES: No known drug allergies. MEDICATIONS: Tylenol, Namenda, Zyprexa. SOCIAL HISTORY: He lives in a custodial. He suffers from dementia. He is dependent for activities of daily living. No active tobacco or alcohol use. REVIEW OF SYSTEMS: Neurologic: Positive for dementia. Cardiac: Negative. Respiratory: Negative for cough or sputum production. Gastrointestinal: Negative for vomiting or diarrhea. Genitourinary: Negative for urinary tract infection. LABORATORY DATA: White count 12.1, 81 neutrophils, 6 lymphocytes, 11 monocytes. Hematocrit 37.1, platelet count 118, BUN 102, creatinine 2.5. Urinalysis shows 24 white cells. Lactic acid 2.5. Blood cultures: Gram-positive cocci in chains. PHYSICAL EXAMINATION: General: The patient is confused and appears chronically ill. Vital Signs: Temperature 97.7, pulse 99 and regular, blood pressure 119/59, respiratory rate 18 per minute. HEENT:: Sclerae anicteric. Poor dentition. Dry mucous membrane. Heart: Heart sounds S1, S2 with a 2/6 pansystolic murmur. Lungs: Diminished breath sounds bilaterally. Abdomen: Soft. No tenderness elicited. No masses, rebound or rigidity. Extremities: Positive for edema. No heel decubiti present. IMPRESSION: An 88-year-old male admitted from a custodial with anorexia, dehydration, hypernatremia and now with positive blood cultures for strep species. 1. Rule out staphylococcal bacteremia/sepsis. 2. Lactic acidosis. 3. Leukocytosis. 4. Thrombocytopenia. 5. Azotemia. 6. Hypernatremia. PLAN: 1. Await identification of blood isolate. Will repeat blood cultures. Empiric antibiotic coverage with ceftriaxone plus . 2. Vancomycin p.o. Further recommendations are pending cultures. We will follow. Thank you for the kind referral. MADDY CHRISTINA M.D. CHELSEA/[id number]
--- NOTE | 2018-09-03 14:15 | CON.PULM ---
Consult Consult Specialty:: PULM/CCM Referred by:: THU Reason for Consultation:: Electrolyte imbalance / elevated Lactic acid - History of Present Illness Chief Complaint: AMS History of Present Illness: 88 M, baseline dementia, hypertension, , Hyperlipidemia, and SNF resident. Patient is DNR. Called due to electrolyte derrangement and elevated lactic acid. Patient is lethargic but able to protect his airway. He is saturation 95% on RA. CXR: Clear. Seen by Renal and ID. Hemodynamics have remained stable throughout. 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 Cardio/Vascular: Yes: Aortic Stenosis, HTN, Hyperlipdemia, Mitral Insufficiency , Murmur, Other (PSVT) Gastrointestinal: Yes: GERD Musculoskeletal: Yes: Osteoarthritis Endocrine: Yes: Diabetes Mellitus - Alcohol/Substance Use Hx Alcohol Use: No - Smoking History Smoking history: Unknown if ever smoked Have you smoked in the past 12 months: No - Social History Usual Living Arrangement: With Spouse ADL: Family Assistance History of Recent Travel: No Home Medications - Allergies Allergies/Adverse Reactions: Allergies Allergy/AdvReac Type Severity Reaction Status Date / Time No Known Allergies Allergy Verified 12/21/17 01:07 - Home Medications Home Medications: Ambulatory Orders Acetaminophen 650 mg PO Q4H PRN 09/02/18 Dextrose 5 %-0.45 % Sod Chlord [Dextrose 5%-0.45% NaCl IV Soln] 60 ml IV ASDIR 09/02/18 Heparin - 5,000 unit SQ BID 09/02/18 Memantine HCl [Namenda -] 10 mg PO BID 09/02/18 Olanzapine [Zyprexa] 7.5 mg PO HS 09/02/18 Olanzapine [Zyprexa] 10 mg PO DAILY 09/02/18 Review of Systems Unable to obtain ROS, reason: unable to provide Physical Exam Vital Sings: Vital Signs Temperature 97.7 F 09/03/18 10:45 Pulse Rate 99 H 09/03/18 10:45 Respiratory Rate 18 09/03/18 10:45 Blood Pressure 119/59 L 09/03/18 10:45 O2 Sat by Pulse Oximetry (%) 98 09/03/18 09:00 Constitutional: Yes: No Distress, Obese Eyes: Yes: Conjunctiva Clear, EOM Intact HENT: Yes: Atraumatic, Normocephalic Neck: Yes: Supple, Trachea Midline Cardiovascular: Yes: Tachycardia Respiratory: Yes: CTA Bilaterally ...Clubbing: No Gastrointestinal: Yes: Normal Bowel Sounds, Soft, Abdomen, Obese Musculoskeletal: Yes: Joint Swelling Extremities: Yes: Cool Edema: Yes Peripheral Pulses WNL: No Integumentary: Yes: Venous Stasis Changes Neurological: Yes: Confusion, Lethargy Labs: CBC, BMP 09/03/18 06:00 09/03/18 11:10 Imaging - Results Chest X-ray: Report Reviewed, Image Reviewed Problem List - Problems (1) Bacteremia Code(s): R78.81 - BACTEREMIA (2) Change in mental status Code(s): R41.82 - ALTERED MENTAL STATUS, UNSPECIFIED (3) Dehydration with hypernatremia Code(s): E87.0 - HYPEROSMOLALITY AND HYPERNATREMIA (4) Aortic stenosis Code(s): I35.0 - NONRHEUMATIC AORTIC (VALVE) STENOSIS (5) Confusion Code(s): R41.0 - DISORIENTATION, UNSPECIFIED (6) Diabetes Code(s): E11.9 - TYPE 2 DIABETES MELLITUS WITHOUT COMPLICATIONS (7) HLD (hyperlipidemia) Code(s): E78.5 - HYPERLIPIDEMIA, UNSPECIFIED (8) HTN (hypertension) Code(s): I10 - ESSENTIAL (PRIMARY) HYPERTENSION (9) Heart murmur Code(s): R01.1 - CARDIAC MURMUR, UNSPECIFIED (10) Venous (peripheral) insufficiency Code(s): I87.2 - VENOUS INSUFFICIENCY (CHRONIC) (PERIPHERAL) Assessment/Plan At this time does not require or will benefit from ICU level of care. He is hemodynamically stable and in no acute respiratory distress. Continue with IVF recommendations per Renal ABX per ID Supplemental O2 if needed Strict I & O Aspiration precautions Follow cultures DNR Would encourage family to also make him DNI VTE prophylaxis Will follow Thank you. Dr Jose
[2018-09-03] MEDS: SODIUM CHLORIDE 0.45% 1,000 ML IV SCH (14:24)
[2018-09-03] MEDS: CEFTRIAXONE 1 GM in DEXTROSE 5%-WATER - 50 ML IVPB SCH (15:48)
[2018-09-03] MEDS ORDERED: cefTRIAXone SODIUM 1 GM VIAL ONE (16:37)
[2018-09-03] MEDS ORDERED: DEXTROSE 5%-WATER - 50 ML IVPB ONE (16:38)
[2018-09-03 17:46] LABS: ANION GAP 8 MMOL/L (8-16); BLOOD UREA NITROGEN 76 mg/dL (7-18); CALCIUM 8.3 mg/dL (8.5-10.1); CHLORIDE 136 mmol/L (98-107); CO2 26 mmol/L (21-32); CREATININE 1.9 mg/dL (0.55-1.3); GLUCOSE,RANDOM 188 mg/dL (74-106); POTASSIUM 3.7 mmol/L (3.5-5.1)
[2018-09-03 17:53] LABS: SODIUM 169 mmol/L (136-145)
--- NOTE | 2018-09-03 18:15 | CON.PSY ---
Psychiatry Consult Chief Complaint: 88 year old male admitted from [facility]. History of DEmentia with increased confusion and agitation. Symptoms: reports: Memory Impairment, Aggressivity - Previous Psychiatric Treatment Outpatient: None Inpatient: None - Previous Substance Abuse Treatment Outpatient: None Inpatient: None - Current Medications Current Medications: Active Medications Heparin Sodium (Porcine) (Heparin -) 5,000 unit SQ BID [facility] Last Admin: 09/03/18 10:39 Dose: 5,000 unit Ceftriaxone Sodium 1 gm/ (Dextrose) 50 mls @ 100 mls/hr IVPB DAILY [facility]; Protocol Last Admin: 09/03/18 15:48 Dose: 100 mls/hr Sodium Chloride (1/2 Normal Saline) 1,000 mls @ 100 mls/hr IV ASDIR [facility] Last Admin: 09/03/18 14:24 Dose: 100 mls/hr Insulin Aspart (Novolog Vial Sliding Scale -) 1 vial SQ Q6HPO [facility]; Protocol Memantine (Namenda -) 10 mg PO BID [facility] Last Admin: 09/03/18 10:39 Dose: Not Given Olanzapine (Zyprexa -) 7.5 mg PO HS [facility] Last Admin: 09/02/18 22:59 Dose: Not Given - Allergies Allergies: Allergies Allergy/AdvReac Type Severity Reaction Status Date / Time No Known Allergies Allergy Verified 12/21/17 01:07 - Current Living Status Usual Living Arrangement: Senior Living - Current Mental Status Evaluation Appearance: Disheveled Attitude: Guarded - Affect Affect: Constrictive Appropriateness: Not Appropriate - Mood Mood: Irritable - Speech/Language Expressive: Delayed - Psychomotor Activity Psychomotor Activity: Hyperactive - Thought Process Thought Process: Circumstantial - Thought Content Hallucinations: Absent Delusions: Absent - Self Perception Self Perception: No Impairment - Cognition Attention: Diminished Memory, Immediate Recall: Impaired Memory, Short Term: 0/3 Memory, Remote with Promptin/3 - Concentration Serial Sevens Intact: No Simple Calculations Intact: No - Abstraction Proverb Interpretation: Idiosyncratic - Insight Insight: Impaired - Impulse Control Impulse Control: Moderately Impaired - Suicidal Ideation Suicidal Ideation: No - Homicidal Ideation Homicidal Ideation: No Assessment/Plan 1) will use PRn meds to manage Agitation.
[2018-09-03] MEDS: OLANZapine 5 MG TABLET PO SCH (21:42)
[2018-09-03] MEDS ORDERED: PT OWN MED DRAWER 7, Y5N ONE (22:20)
[2018-09-04] MEDS: INSULIN SLIDING SCALE (NOVOLOG) 1 VIAL SQ SCH ×4 (00:59→17:54)
[2018-09-04 06:50] LABS: BASO % 0.4 % (0-2.0); EOS % 0.9 % (0-4.5); HEMATOCRIT 36.3 % (35.4-49); HEMOGLOBIN 10.9 GM/dL (11.7-16.9); LYMPH % 9.4 % (8-40); MCHC 30.1 g/dl (32.0-35.9); MEAN CELL VOLUME 86.4 fl (80-96); MEAN PLT VOLUME 8.3 fl (7.5-11.1); MONO % 12.8 % (3.8-10.2); NEUT % 76.5 % (42.8-82.8); PLATELET COUNT 105 K/MM3 (134-434); RDW 14.7 % (11.9-15.9); WHITE BLOOD COUNT 11.7 K/mm3 (4.0-10.0)
[2018-09-04 08:07] LABS: ALBUMIN 2.5 g/dl (3.4-5.0); ALK PHOS 78 U/L (45-117); ANION GAP 6 MMOL/L (8-16); BILIRUBIN,TOTAL 0.4 mg/dL (0.2-1); BLOOD UREA NITROGEN 63 mg/dL (7-18); CALCIUM 8.1 mg/dL (8.5-10.1); CHLORIDE 139 mmol/L (98-107); CO2 25 mmol/L (21-32); CREATININE 1.7 mg/dL (0.55-1.3); GLUCOSE,RANDOM 134 mg/dL (74-106); SGOT/AST 71 U/L (15-37); SGPT/ALT 76 U/L (13-61); TOT PROT 6.6 g/dl (6.4-8.2)
[2018-09-04 08:17] LABS: SODIUM 170 mmol/L (136-145)
[2018-09-04] MEDS ORDERED: D5-1/4NS+20 MEQ KCL - 20 MEQ/1,000 ML INFUS.BAG IV SCH (08:30)
--- NOTE | 2018-09-04 09:12 | PN ---
Progress Note, Physician - Current Medication List Current Medications: Active Medications Heparin Sodium (Porcine) (Heparin -) 5,000 unit SQ BID [facility] Last Admin: 09/03/18 22:59 Dose: 5,000 unit Ceftriaxone Sodium 1 gm/ (Dextrose) 50 mls @ 100 mls/hr IVPB DAILY [facility]; Protocol Last Admin: 09/03/18 15:48 Dose: 100 mls/hr Sodium Chloride (1/2 Normal Saline) 1,000 mls @ 100 mls/hr IV ASDIR [facility] Last Admin: 09/03/18 14:24 Dose: 100 mls/hr Dextrose/Sodium Chloride (D5-1/4ns+20 Meq Kcl -) 20 meq in 1,000 mls @ 125 mls/ hr IV ASDIR [facility] Insulin Aspart (Novolog Vial Sliding Scale -) 1 vial SQ Q6HPO [facility]; Protocol Last Admin: 09/04/18 06:14 Dose: Not Given Memantine (Namenda -) 10 mg PO BID [facility] Last Admin: 09/03/18 21:42 Dose: Not Given Olanzapine (Zyprexa -) 5 mg PO HS [facility] Last Admin: 09/03/18 21:42 Dose: Not Given - Objective Vital Signs: Vital Signs Temperature 97.9 F 09/04/18 04:00 Pulse Rate 100 H 09/04/18 04:00 Respiratory Rate 20 09/04/18 04:00 Blood Pressure 133/72 09/04/18 04:00 O2 Sat by Pulse Oximetry (%) 98 09/03/18 21:00 Cardiovascular: Yes: S1, S2 Respiratory: Yes: Regular, CTA Bilaterally Gastrointestinal: Yes: Normal Bowel Sounds, Soft Neurological: Yes: Confusion, Other (agitation) Labs: CBC, BMP 09/04/18 06:00 09/04/18 06:00 INR, PTT INR 1.32 (0.83-1.09) H 09/02/18 18:50 Assessment/Plan - Problems (1) Dehydration with hypernatremia Assessment/Plan: renal on board will change fluids to 1/4NS @ 125cc per hr and will then recheck cmp in evening NPO shree zhong palliative order Code(s): E87.0 - HYPEROSMOLALITY AND HYPERNATREMIA (2) Bacteremia Assessment/Plan: ceftriaxone and vancomycin awaiting final cultures Code(s): R78.81 - BACTEREMIA (3) Dementia Assessment/Plan: dr lacy consult patient not taking in oral meds on vest adn wrist restraints Code(s): F03.90 - UNSPECIFIED DEMENTIA WITHOUT BEHAVIORAL DISTURBANCE Qualifiers: Dementia behavioral disturbance: with behavioral disturbance (4) Change in mental status Assessment/Plan: neuro eval monitor sodium ivf repeat bmp tried calling no answer jazmine get pulm eval as well given inc lactic acid and wbc count Code(s): R41.82 - ALTERED MENTAL STATUS, UNSPECIFIED Assessment/Plan called bharath on phone no answer no voicemail is set up patient is DNR poor prognosis
--- NOTE | 2018-09-04 09:32 | CONSULT ---
Consult - text type - Consultation Consultation Note: NEUROLOGY CONSULTATION is grreatly appreciated: This 88 yo RH man is an [facility] resident with h/o HTN, DM, Chol, ASHD, valvular disease and progressive dementia. On: Acetaminophen; Heparin - 5,000 unit SQ BID; Memantine HCl mg PO BID; and Olanzapine [Zyprexa] 7.5 mg PO HS 09/02/18. Seen by me 12/28/15 with presyncope due to supraqventricular tachycardia. He had a moderate OMS at that time. Now admitted with increased confusion, agitation and dehydration with Na+ 170 mg % and Cl- =139 mg%. No improvement in Lytes this AM. On Ceftriaxone for probable UTI. Neuroimaging not done due to poor patient cooperation. CODY: In 2 point restraints. Neck rigid in all directions. - Kernig's. Extremely dry mucosa. NEURO: Lethargic. Arouses to gentle shake. Purposeful mov'ts of both arms to sternal pressure (symmetrical). Full roving EOM's but no clear response to visual threat. No facial asymmetry. Symmetrical writhing mov'ts all fours. Areflexic in legs. Plantars silent. Withdraws all fours to pinch. IMP: Severe, B/L cerebral dysfunction. Underlying OMS worsened by Toxic-metabolic encephalopathy (Dehydration/ hypernatremia/urosepsis). Probable diabetic Peripheral neuropathy SUGGEST: More aggressive hydration. Continue antibiotics. Check B12, TSH, RPR CT of head when stable Doubt efficacy of Namenda with current clinical status. Decrease Zyprexa if Psyche agrees. Thank you very much, Mike Johnston MD
--- NOTE | 2018-09-04 09:45 | CONSULT ---
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: Yes: Dementia Cardiovascular: Yes: Aortic Stenosis, HTN, Hyperlipdemia, Mitral Insufficiency, Murmur, Other (PSVT) Gastrointestinal: Yes: GERD Musculoskeletal: Yes: Osteoarthritis Endocrine: Yes: Diabetes Mellitus - Advance Directives Advance Directives: Yes: DNR - Smoking History Smoking history: Unknown if ever smoked Have you smoked in the past 12 months: No - Alcohol/Substance Use Hx Alcohol Use: No - Social History ADL: Family Assistance History of Recent Travel: No History - Admission Reason For Visit: HYPEROSMOLALITY WITH HYPERNATREMIA - Hearing Hearing: Normal Hearing Aide: No Speech Evaluation - Communication Primary Language: UKRAINIAN Communication: Yes: Non-Communicable Oral Expression Ability: Yes: Non-Verbal - Speech Production Dysarthria: Yes: Flaccid Apraxia: No Able to Make Needs Known: Yes: Severely Impaired Intelligibility: Yes: Severely Impaired - Speech Characteristics Voice Loudness: Moderately Loud Voice Pitch: Yes: Limited Variation Speech Pattern: Impaired Speech Clarity: < 25% Articulation: Yes: Imprecise Voice, Other Observations: Yes: Mouth Breathing - Language/Auditory Comprehension Follows: Yes: 1 Stage Simple Commands (No response) Observation: Able to respond to yes/no queries: No, Yes/No Confusion: Yes, Comprehends Conversational Speech: No, Benefits from Slow Speech: No, Benefits from Repetiton: No, Benefits from Increased Volume of Speech: No - Language/Verbal Expression Able to Respond to Simple Queries: Yes: Severely Impaired Able to Communicate Wants and Needs: Yes: Severely Impaired Functional Communication Status: Yes: Severely Impaired Aware of Errors: No Attempts to Correct Errors: No Use of Gestures: No Written Expression: not able Reading Comprehension: not able Calculations: not able Attention: Yes: Profound Impairment - Memory/Perception intermediate card tender Memory: Yes: Severely Impaired Short Term Memory: Yes: Severely Impaired - Swallow Evaluation/Bedside Assessment Current Nutritional Intake: NPO Oral Secretions: Yes: Halitosis, Dryness, Tongue Coated Tracheostomy Present: No Patient on Ventilator: No Dentition: Yes: Missing Teeth Facial Symmetry at Rest: Symmetrical Facial Movement: Involuntary Facial Comment: limited response. Jaw Position: Open at Rest Against Resistance Opening: Weak Against Resistance Closing: Weak Lips, Comment: could not assess Lingual Speed of Movement: Reduced Lingual Movement Strgth Against Opposition: Reduced Lingual Movement Characteristics: Spasms, Writhing Lingual Comment: reduced movement Soft Palate Description: Normal Color, Normal Arch Gag Reflex: Absent Bite Reflex: Absent Laryngeal Elevation: Impaired Laryngeal Movement: Unable to Palpate Needs Assistance: Yes Coughing/Throat Clear: No Change in Voice: No Other Findings/Remarks: 88 yo male seen at bedside for swallow eval to r/o dysphagia. Pt is vocal but non-verbal, A&Ox1, eyes generally closed, with h/o dementia, DM and HTN. Admitted to [facility] for dehydration and reduced oral intake. Oral motor exam revealed reduced movement of all structures. At bedside, no response when ELECTRIC TRUCK DRIVER attempted to stimulate swallow reflex. Manual manipulation of the larynx was unsuccessful with swallow reflex. ELECTRIC TRUCK DRIVER unable to stimulate a gag reflex. No po trials given during this session. Pt is not safe for po trials at this time. doctor of veterinary medicine reported that pt's family is considering comfort care. Recommendations - Speech Evaluation, Impression/Plan Impression: Pt is not safe for po trials at this time. Pt presents with profound bola-phayrngeal dysphagia and is at risk for aspiration. - Dysphagia Impressions/Plan Dysphagia Impressions: Risk of Aspiration, Ongoing Evaluation, No Response, Too Lethargic to Assess *Silent aspiration: cannot be R/O at bedside Dysphagia Evaluation Summary: Recommendations : Continue NPO status at this time. Consider alternate means of providing nutrition, hydration and medication. ELECTRIC TRUCK DRIVER to follow up if there is a change in medical status. Results given verbally to devulcanizer charger and to pcp via chart. - Recommendations Liquids: IV Hydration Supplement: IVF if notcontraindicated
[2018-09-04] MEDS ORDERED: cefTRIAXone SODIUM 1 GM VIAL ONE (10:38)
[2018-09-04] MEDS ORDERED: DEXTROSE 5%-WATER - 50 ML IVPB ONE (10:39)
[2018-09-04] MEDS: HEPARIN NA (PORCINE) 5,000 UNITS/ML 1ML VIAL SQ SCH ×2 (10:52→22:13)
[2018-09-04] MEDS: CEFTRIAXONE 1 GM in DEXTROSE 5%-WATER - 50 ML IVPB SCH (10:52)
[2018-09-04] MEDS: MEMANTINE HCL 10 MG TABLET (FP) PO SCH ×2 (10:53→22:13)
--- NOTE | 2018-09-04 11:30 | PN ---
Progress Note, Physician History of Present Illness: Awake, confused Not conversant Afebrile BC polymicrobial Repeat BC pending - Current Medication List Current Medications: Active Medications Heparin Sodium (Porcine) (Heparin -) 5,000 unit SQ BID [facility] Last Admin: 09/04/18 10:52 Dose: 5,000 unit Ceftriaxone Sodium 1 gm/ (Dextrose) 50 mls @ 100 mls/hr IVPB DAILY [facility]; Protocol Last Admin: 09/04/18 10:52 Dose: 100 mls/hr Sodium Chloride (1/2 Normal Saline) 1,000 mls @ 100 mls/hr IV [facility] Last Admin: 09/03/18 14:24 Dose: 100 mls/hr Dextrose/Sodium Chloride (D5-1/4ns+20 Meq Kcl -) 20 meq in 1,000 mls @ 125 mls/ hr IV [facility] Last Admin: 09/04/18 09:20 Dose: 125 mls/hr Insulin Aspart (Novolog Vial Sliding Scale -) 1 vial SQ Q6HPO [facility]; Protocol Last Admin: 09/04/18 06:14 Dose: Not Given Memantine (Namenda -) 10 mg PO BID [facility] Last Admin: 09/04/18 10:53 Dose: Not Given Olanzapine (Zyprexa -) 5 mg PO HS [facility] Last Admin: 09/03/18 21:42 Dose: Not Given - Objective Vital Signs: Vital Signs Temperature 98.6 F 09/04/18 10:00 Pulse Rate 108 H 09/04/18 10:00 Respiratory Rate 19 09/04/18 10:00 Blood Pressure 103/57 L 09/04/18 10:00 O2 Sat by Pulse Oximetry (%) 98 09/03/18 21:00 Constitutional: Yes: No Distress Eyes: Yes: Conjunctiva Clear Cardiovascular: Yes: Regular Rate and Rhythm, S1, S2 Respiratory: Yes: Diminished Gastrointestinal: Yes: Normal Bowel Sounds, Soft. No: Tenderness Edema: Yes Labs: CBC, BMP 09/04/18 06:00 09/04/18 06:00 INR, PTT INR 1.32 (0.83-1.09) H 09/02/18 18:50 Assessment/Plan Polymicrobial bacteremia ? source Await final c/s Continue ceftriaxone Redose vancomycin ? CT A/P
[2018-09-04] MEDS ORDERED: VANCOMYCIN 1 GRAM (PRE-DOCKED) 1,000 MG/250 ML BAG IVPB ONE (11:32)
--- NOTE | 2018-09-04 15:04 | PN ---
Progress Note (short form) - Note Progress Note: Renal follow up for ZADI/Hypernatremia Pt seen and examined at the bedside remains lethargic on IVF making urine has periods of agitation Vital Signs Temperature 98.4 F 09/04/18 13:18 Pulse Rate 90 09/04/18 13:18 Respiratory Rate 18 09/04/18 13:18 Blood Pressure 105/61 09/04/18 13:18 O2 Sat by Pulse Oximetry (%) 98 09/04/18 09:00 Intake & Output 09/01/18 09/02/18 09/03/18 09/04/18 23:59 23:59 23:59 23:59 Intake Total 3500 1100 Output Total 100 1700 900 Balance -100 1800 200 Weight 109.86 kg 109.769 kg NAD lethargic RRR no rales soft, obese, NT/ND No LE edema CBC, BMP 09/04/18 06:00 09/04/18 06:00 Current Medications Heparin Sodium (Porcine) (Heparin -) 5,000 unit SQ BID [facility] Last Admin: 09/04/18 10:52 Dose: 5,000 unit Ceftriaxone Sodium 1 gm/ (Dextrose) 50 mls @ 100 mls/hr IVPB DAILY [facility]; Protocol Last Admin: 09/04/18 10:52 Dose: 100 mls/hr Sodium Chloride (1/2 Normal Saline) 1,000 mls @ 100 mls/hr IV [facility] Last Admin: 09/03/18 14:24 Dose: 100 mls/hr Dextrose/Sodium Chloride (D5-1/4ns+20 Meq Kcl -) 20 meq in 1,000 mls @ 125 mls/ hr IV [facility] Last Admin: 09/04/18 09:20 Dose: 125 mls/hr Insulin Aspart (Novolog Vial Sliding Scale -) 1 vial SQ Q6HPO [facility]; Protocol Last Admin: 09/04/18 12:37 Dose: Not Given Memantine (Namenda -) 10 mg PO BID [facility] Last Admin: 09/04/18 10:53 Dose: Not Given Olanzapine (Zyprexa -) 5 mg PO HS [facility] Last Admin: 09/03/18 21:42 Dose: Not Given 88 year old gentleman with hx of Dementia, hypertension, , Hyperlipidemia who presented from [place] with dehydration and hypernatremia and ZAID. #ZAID likely due to intravascular volume depletion (Baseline Cr 1.1) #Hypernatremia in setting of Dementia and poor oral intake (water deficit is 12.9L) #Anemia #Hx of Hypertension (now normotensive) #Dementia Renal function improving water deficit persists, agreee with 10/18 NS will request NGT placement with free water to be given throughout the day repeat BMP this evening no indication for SHOE FOLDER continue supportive care Thank you Sarkis Abebe DO
[2018-09-04 19:19] LABS: ANION GAP 6 MMOL/L (8-16); BLOOD UREA NITROGEN 51 mg/dL (7-18); CALCIUM 7.9 mg/dL (8.5-10.1); CHLORIDE 137 mmol/L (98-107); CO2 24 mmol/L (21-32); CREATININE 1.7 mg/dL (0.55-1.3); GLUCOSE,RANDOM 170 mg/dL (74-106); POTASSIUM 3.8 mmol/L (3.5-5.1)
[2018-09-04 19:22] LABS: SODIUM 168 mmol/L (136-145)
[2018-09-04] MEDS: OLANZapine 5 MG TABLET PO SCH (22:13)
[2018-09-05] MEDS: INSULIN SLIDING SCALE (NOVOLOG) 1 VIAL SQ SCH ×5 (01:27→23:38)
[2018-09-05] MEDS ORDERED: LORazepam 2 MG/ML SDV VIAL IVPUSH ONE (04:30)
[2018-09-05] MEDS ORDERED: D5-1/4NS+20 MEQ KCL - 20 MEQ/1,000 ML INFUS.BAG IV SCH (05:30)
--- NOTE | 2018-09-05 07:49 | PN ---
Progress Note (short form) - Note Progress Note: Renal follow up for ZAID/Hypernatremia Pt seen and examined at the bedside yesterdays events noted, unable to place NGT given pts agitation no other overnight events making urine on IVF Vital Signs Temperature 98.7 F 09/05/18 06:00 Pulse Rate 92 H 09/05/18 06:00 Respiratory Rate 22 H 09/05/18 06:00 Blood Pressure 134/75 09/05/18 06:00 O2 Sat by Pulse Oximetry (%) 98 09/04/18 21:00 Intake & Output 09/02/18 09/03/18 09/04/18 09/05/18 23:59 23:59 23:59 23:59 Intake Total 3500 1100 1250 Output Total 100 1700 1500 300 Balance -100 1800 -400 950 Weight 109.86 kg 109.769 kg NAD, mildly agitated RRR, no M/R CTA soft NT/ND No LE edema CBC, BMP 09/04/18 06:00 09/04/18 17:45 Current Medications Heparin Sodium (Porcine) (Heparin -) 5,000 unit SQ BID [facility] Last Admin: 09/04/18 22:13 Dose: 5,000 unit Ceftriaxone Sodium 1 gm/ (Dextrose) 50 mls @ 100 mls/hr IVPB DAILY [facility]; Protocol Last Admin: 09/04/18 10:52 Dose: 100 mls/hr Potassium Chloride 20 meq/ (Dextrose) 1,010 mls @ 125 mls/hr IVPB Q8H [facility] Insulin Aspart (Novolog Vial Sliding Scale -) 1 vial SQ Q6HPO [facility]; Protocol Last Admin: 09/05/18 06:04 Dose: Not Given Memantine (Namenda -) 10 mg PO BID [facility] Last Admin: 09/04/18 22:13 Dose: Not Given Olanzapine (Zyprexa -) 5 mg PO HS [facility] Last Admin: 09/04/18 22:13 Dose: Not Given 88 year old gentleman with hx of Dementia, hypertension, , Hyperlipidemia who presented from [place] with dehydration and hypernatremia and ZAID. #ZAID likely due to intravascular volume depletion (Baseline Cr 1.1) #Hypernatremia in setting of Dementia and poor oral intake (water deficit is 12.9L) #Anemia #Hx of Hypertension (now normotensive) #Dementia Renal function is improved and pt is non-oliguric serum Na w/o significant change, will change IVF to D5W with KCL Trend serum Na Q12h, goal improvement in 24 hours ~8 Continue supportive care Thank you Sarkis Abebe DO
[2018-09-05] MEDS ORDERED: POTASSIUM CHLORIDE 20 MEQ in DEXTROSE 5%-WATER - 1,000 ML IVPB SCH (08:00)
[2018-09-05 09:12] LABS: ALBUMIN 2.5 g/dl (3.4-5.0); ALK PHOS 78 U/L (45-117); ANION GAP 8 MMOL/L (8-16); BILIRUBIN,TOTAL 0.6 mg/dL (0.2-1); BLOOD UREA NITROGEN 42 mg/dL (7-18); CHLORIDE 138 mmol/L (98-107); CO2 24 mmol/L (21-32); CREATININE 1.7 mg/dL (0.55-1.3); GLUCOSE,RANDOM 156 mg/dL (74-106); POTASSIUM 4.2 mmol/L (3.5-5.1); SGOT/AST 74 U/L (15-37); SGPT/ALT 77 U/L (13-61); TOT PROT 6.6 g/dl (6.4-8.2)
[2018-09-05] MEDS: SODIUM CHLORIDE 0.45% 1,000 ML IV SCH (09:18)
[2018-09-05] MEDS: MEMANTINE HCL 10 MG TABLET (FP) PO SCH ×2 (09:18→22:05)
[2018-09-05] MEDS ORDERED: DEXTROSE 5%-WATER - 50 ML IVPB ONE (09:25)
[2018-09-05] MEDS ORDERED: cefTRIAXone SODIUM 1 GM VIAL ONE (09:25)
[2018-09-05 09:29] LABS: SODIUM 170 mmol/L (136-145)
[2018-09-05] MEDS: CEFTRIAXONE 1 GM in DEXTROSE 5%-WATER - 50 ML IVPB SCH (09:44)
[2018-09-05] MEDS: HEPARIN NA (PORCINE) 5,000 UNITS/ML 1ML VIAL SQ SCH ×2 (09:45→22:05)
[2018-09-05 10:14] LABS: BASO % 0.4 % (0-2.0); HEMOGLOBIN 10.7 GM/dL (11.7-16.9); LYMPH % 10.8 % (8-40); MCH 27.7 pg (25.7-33.7); MCHC 32.4 g/dl (32.0-35.9); MEAN CELL VOLUME 85.4 fl (80-96); MEAN PLT VOLUME 8.4 fl (7.5-11.1); MONO % 10.1 % (3.8-10.2); NEUT % 77.7 % (42.8-82.8); PLATELET COUNT 64 K/MM3 (134-434); RBC 3.87 M/mm3 (4.00-5.60); RDW 14.9 % (11.9-15.9)
[2018-09-05] MEDS: POTASSIUM CHLORIDE 20 MEQ in DEXTROSE 5%-WATER - 1,000 ML IVPB SCH ×2 (11:30→18:00)
[2018-09-05 11:44] LABS: ADD RBC MORPHOLOGY YES; MACROCYTOSIS 1+
[2018-09-05 11:45] LABS: ANISOCYTOSIS 1+
[2018-09-05] MEDS ORDERED: LORazepam 2 MG/ML SDV VIAL IVPUSH PRN (12:55)
--- NOTE | 2018-09-05 12:56 | PN ---
Progress Note, Physician - Current Medication List Current Medications: Active Medications Heparin Sodium (Porcine) (Heparin -) 5,000 unit SQ BID [facility] Last Admin: 09/05/18 09:45 Dose: 5,000 unit Ceftriaxone Sodium 1 gm/ (Dextrose) 50 mls @ 100 mls/hr IVPB DAILY [facility]; Protocol Last Admin: 09/05/18 09:44 Dose: 100 mls/hr Potassium Chloride 20 meq/ (Dextrose) 1,010 mls @ 150 mls/hr IVPB Q404M [facility] Last Admin: 09/05/18 11:30 Dose: 150 mls/hr Vancomycin HCl (Vancomycin (Pre-Docked)) 1,000 mg in 250 mls @ 166.667 mls/hr IVPB ONCE ONE; Protocol Stop: 09/05/18 14:29 Insulin Aspart (Novolog Vial Sliding Scale -) 1 vial SQ Q6HPO [facility]; Protocol Last Admin: 09/05/18 11:31 Dose: Not Given Memantine (Namenda -) 10 mg PO BID [facility] Last Admin: 09/05/18 09:18 Dose: Not Given Olanzapine (Zyprexa -) 5 mg PO HS [facility] Last Admin: 09/04/18 22:13 Dose: Not Given - Objective Vital Signs: Vital Signs Temperature 98.7 F 09/05/18 06:00 Pulse Rate 92 H 09/05/18 06:00 Respiratory Rate 22 H 09/05/18 06:00 Blood Pressure 134/75 09/05/18 06:00 O2 Sat by Pulse Oximetry (%) 98 09/04/18 21:00 Cardiovascular: Yes: S1, S2 Respiratory: Yes: Regular, CTA Bilaterally Gastrointestinal: Yes: Normal Bowel Sounds, Soft Neurological: Yes: Alert, Confusion Labs: CBC, BMP 09/05/18 07:30 09/05/18 07:30 INR, PTT INR 1.32 (0.83-1.09) H 09/02/18 18:50 Assessment/Plan - Problems (1) Dehydration with hypernatremia Assessment/Plan: renal on board will change fluids to d5w and will then recheck cmp in evening monitor palliative order Code(s): E87.0 - HYPEROSMOLALITY AND HYPERNATREMIA (2) Bacteremia Assessment/Plan: ceftriaxone and vancomycin awaiting final cultures Code(s): R78.81 - BACTEREMIA (3) Dementia Assessment/Plan: dr lacy consult patient not taking in oral meds on vest adn wrist restraints Code(s): F03.90 - UNSPECIFIED DEMENTIA WITHOUT BEHAVIORAL DISTURBANCE Qualifiers: Dementia behavioral disturbance: with behavioral disturbance (4) Change in mental status Assessment/Plan: neuro eval monitor sodium ivf repeat bmp tried calling no answer jazmine get pulm eval as well given inc lactic acid and wbc count Code(s): R41.82 - ALTERED MENTAL STATUS, UNSPECIFIED Assessment/Plan called bharath on phone no answer no voicemail is set up patient is DNR poor prognosis
[2018-09-05] MEDS ORDERED: VANCOMYCIN 1 GRAM (PRE-DOCKED) 1,000 MG/250 ML BAG IVPB ONE (13:00)
[2018-09-05] MEDS: OLANZapine 5 MG TABLET PO SCH (22:05)
--- NOTE | 2018-09-05 22:58 | PN ---
Progress Note, Physician History of Present Illness: Awake, confused More agitated today Not conversant Afebrile BC polymicrobial Repeat BC pending - Current Medication List Current Medications: Active Medications Heparin Sodium (Porcine) (Heparin -) 5,000 unit SQ BID [facility] Last Admin: 09/05/18 22:05 Dose: 5,000 unit Ceftriaxone Sodium 1 gm/ (Dextrose) 50 mls @ 100 mls/hr IVPB DAILY [facility]; Protocol Last Admin: 09/05/18 09:44 Dose: 100 mls/hr Potassium Chloride 20 meq/ (Dextrose) 1,010 mls @ 150 mls/hr IVPB Q404M [facility] Last Admin: 09/05/18 18:00 Dose: 150 mls/hr Insulin Aspart (Novolog Vial Sliding Scale -) 1 vial SQ Q6HPO [facility]; Protocol Last Admin: 09/05/18 18:00 Dose: Not Given Lorazepam (Ativan Injection -) 0.5 mg IVPUSH Q6H PRN PRN Reason: ANXIETY Last Admin: 09/05/18 13:32 Dose: 0.5 mg Memantine (Namenda -) 10 mg PO BID [facility] Last Admin: 09/05/18 22:05 Dose: Not Given Olanzapine (Zyprexa -) 5 mg PO HS [facility] Last Admin: 09/05/18 22:05 Dose: Not Given - Objective Vital Signs: Vital Signs Temperature 97.9 F 09/05/18 14:43 Pulse Rate 102 H 09/05/18 14:43 Respiratory Rate 20 09/05/18 14:43 Blood Pressure 138/88 09/05/18 14:43 O2 Sat by Pulse Oximetry (%) 98 09/04/18 21:00 Cardiovascular: Yes: Regular Rate and Rhythm, S1, S2 Respiratory: Yes: CTA Bilaterally Gastrointestinal: Yes: Normal Bowel Sounds, Soft Edema: Yes Labs: CBC, BMP 09/05/18 07:30 09/05/18 07:30 INR, PTT INR 1.32 (0.83-1.09) H 09/02/18 18:50 Assessment/Plan Polymicrobial bacteremia ? source Await final c/s Continue ceftriaxone Redose vancomycin CT A/P
[2018-09-06] MEDS: POTASSIUM CHLORIDE 20 MEQ in DEXTROSE 5%-WATER - 1,000 ML IVPB SCH ×6 (01:22→22:02)
[2018-09-06] MEDS: INSULIN SLIDING SCALE (NOVOLOG) 1 VIAL SQ SCH ×2 (06:27→12:48)
[2018-09-06] MEDS ORDERED: DEXTROSE 5%-WATER - 50 ML IVPB ONE (09:36)
[2018-09-06] MEDS ORDERED: cefTRIAXone SODIUM 1 GM VIAL ONE (09:36)
[2018-09-06] MEDS: CEFTRIAXONE 1 GM in DEXTROSE 5%-WATER - 50 ML IVPB SCH (09:38)
[2018-09-06] MEDS: HEPARIN NA (PORCINE) 5,000 UNITS/ML 1ML VIAL SQ SCH ×2 (09:38→23:15)
[2018-09-06] MEDS: MEMANTINE HCL 10 MG TABLET (FP) PO SCH (09:52)
--- NOTE | 2018-09-06 12:29 | PN ---
Progress Note, Physician Chief Complaint: patient awake in restraints labs ordered ivf palliative care consult - Current Medication List Current Medications: Active Medications Heparin Sodium (Porcine) (Heparin -) 5,000 unit SQ BID [facility] Last Admin: 09/06/18 09:38 Dose: 5,000 unit Ceftriaxone Sodium 1 gm/ (Dextrose) 50 mls @ 100 mls/hr IVPB DAILY [facility]; Protocol Last Admin: 09/06/18 09:38 Dose: 100 mls/hr Potassium Chloride 20 meq/ (Dextrose) 1,010 mls @ 150 mls/hr IVPB Q404M [facility] Last Admin: 09/06/18 10:25 Dose: 150 mls/hr Lorazepam (Ativan Injection -) 0.5 mg IVPUSH Q6H PRN PRN Reason: ANXIETY Last Admin: 09/05/18 13:32 Dose: 0.5 mg Memantine (Namenda -) 10 mg PO BID [facility] Last Admin: 09/06/18 09:52 Dose: Not Given Olanzapine (Zyprexa -) 5 mg PO HS [facility] Last Admin: 09/05/18 22:05 Dose: Not Given - Objective Vital Signs: Vital Signs Temperature 97.6 F 09/06/18 06:30 Pulse Rate 70 09/06/18 06:30 Respiratory Rate 20 09/06/18 06:30 Blood Pressure 149/92 09/06/18 06:30 O2 Sat by Pulse Oximetry (%) 98 09/04/18 21:00 Constitutional: Yes: Calm Cardiovascular: Yes: Regular Rate and Rhythm, S1, S2 Respiratory: Yes: Diminished Gastrointestinal: Yes: Normal Bowel Sounds, Soft Labs: CBC, BMP 09/05/18 07:30 09/05/18 07:30 INR, PTT INR 1.32 (0.83-1.09) H 09/02/18 18:50 Problem List - Problems (1) Dehydration with hypernatremia Assessment/Plan: renal on board na 170- today labs ordered not safe for po trials palliative order DNR/DNI Code(s): E87.0 - HYPEROSMOLALITY AND HYPERNATREMIA (2) Bacteremia Assessment/Plan: ceftriaxone and vancomycin awaiting final cultures Microbiology 09/03/18 16:00 Blood - Peripheral Venous Blood Culture - Final Escherichia Coli 09/02/18 19:00 Urine - Urine - Catheterized Urine Culture - Final Escherichia Coli Code(s): R78.81 - BACTEREMIA (3) Dementia Assessment/Plan: dr lacy consult noted patient not taking in oral meds - has not take nameda or zyprexa iv ativan as needed on vest adn wrist restraints Code(s): F03.90 - UNSPECIFIED DEMENTIA WITHOUT BEHAVIORAL DISTURBANCE Qualifiers: Dementia behavioral disturbance: with behavioral disturbance (4) Change in mental status Assessment/Plan: neuro eval- noted monitor sodium ivf repeat bmp Code(s): R41.82 - ALTERED MENTAL STATUS, UNSPECIFIED (5) ZAID (acute kidney injury) Assessment/Plan: renal function improving on ivf repeat labs ordered today Code(s): N17.9 - ACUTE KIDNEY FAILURE, UNSPECIFIED
[2018-09-06 12:59] LABS: BASO % 0.6 % (0-2.0); EOS % 1.4 % (0-4.5); HEMATOCRIT 30.7 % (35.4-49); HEMOGLOBIN 9.5 GM/dL (11.7-16.9); LYMPH % 11.8 % (8-40); MCH 26.4 pg (25.7-33.7); MEAN CELL VOLUME 85.2 fl (80-96); MEAN PLT VOLUME 8.9 fl (7.5-11.1); MONO % 7.4 % (3.8-10.2); NEUT % 78.8 % (42.8-82.8); PLATELET COUNT 82 K/MM3 (134-434); RDW 14.2 % (11.9-15.9); WHITE BLOOD COUNT 10.6 K/mm3 (4.0-10.0)
[2018-09-06 13:26] LABS: ALBUMIN 2.3 g/dl (3.4-5.0); ALK PHOS 74 U/L (45-117); ANION GAP 6 MMOL/L (8-16); BILIRUBIN,TOTAL 0.4 mg/dL (0.2-1); BLOOD UREA NITROGEN 30 mg/dL (7-18); CALCIUM 7.6 mg/dL (8.5-10.1); CHLORIDE 132 mmol/L (98-107); CO2 22 mmol/L (21-32); CREATININE 1.4 mg/dL (0.55-1.3); GLUCOSE,RANDOM 160 mg/dL (74-106); POTASSIUM 3.9 mmol/L (3.5-5.1); SGOT/AST 79 U/L (15-37); SGPT/ALT 85 U/L (13-61); SODIUM 160 mmol/L (136-145)
--- NOTE | 2018-09-06 15:04 | PN ---
Progress Note, Physician Chief Complaint: The patient seen in his room. Not alert. Lethargic. urine output improving History of Present Illness: 88 year old gentleman with hx of Dementia, hypertension, , Hyperlipidemia who [place] with dehydration and hypernatremia and ZAID. The patient's hemodynamic status improved. Remains Hypernatremic. IV fluids are modified. Maintains urine output. - Current Medication List Current Medications: Active Medications Heparin Sodium (Porcine) (Heparin -) 5,000 unit SQ BID [facility] Last Admin: 09/06/18 09:38 Dose: 5,000 unit Ceftriaxone Sodium 1 gm/ (Dextrose) 50 mls @ 100 mls/hr IVPB DAILY [facility]; Protocol Last Admin: 09/06/18 09:38 Dose: 100 mls/hr Potassium Chloride 20 meq/ (Dextrose) 1,010 mls @ 150 mls/hr IVPB Q404M [facility] Last Admin: 09/06/18 10:25 Dose: 150 mls/hr Lorazepam (Ativan Injection -) 0.5 mg IVPUSH Q6H PRN PRN Reason: ANXIETY Last Admin: 09/05/18 13:32 Dose: 0.5 mg Olanzapine (Zyprexa -) 5 mg PO HS [facility] Last Admin: 09/05/18 22:05 Dose: Not Given - Objective Vital Signs: Vital Signs Temperature 98.0 F 09/06/18 14:43 Pulse Rate 94 H 09/06/18 14:43 Respiratory Rate 20 09/06/18 14:43 Blood Pressure 168/77 09/06/18 14:43 O2 Sat by Pulse Oximetry (%) 98 09/04/18 21:00 Constitutional: Yes: Cachectic, Pallor Neck: Yes: Trachea Midline Cardiovascular: Yes: Tachycardia, Pulse Irregular, S1, S2 Respiratory: Yes: CTA Bilaterally, Hyperresonant Gastrointestinal: Yes: Normal Bowel Sounds Edema: No Labs: CBC, BMP 09/06/18 12:47 09/06/18 12:47 INR, PTT INR 1.32 (0.83-1.09) H 09/02/18 18:50 Assessment/Plan 88 year old gentleman with hx of Dementia, hypertension, , Hyperlipidemia who [place] with dehydration and hypernatremia and ZAID. ZAID likely due to intravascular volume depletion Will monitor the renal functions. Hypernatremia in setting of Dementia and poor oral intake (water deficit is 12.9L) Anemia Hx of Hypertension (now normotensive) Dementia Renal functions improving. Serum Na tends to improve on the Hypotonic IV fluids. Will continue the same. Will order labs for AM. Carmen Macias MD
--- NOTE | 2018-09-06 15:18 | PN ---
Progress Note, Physician History of Present Illness: Awake, confused but less agitated Not conversant Afebrile BC polymicrobial - Current Medication List Current Medications: Active Medications Heparin Sodium (Porcine) (Heparin -) 5,000 unit SQ BID [facility] Last Admin: 09/06/18 09:38 Dose: 5,000 unit Potassium Chloride 20 meq/ (Dextrose) 1,010 mls @ 150 mls/hr IVPB Q404M [facility] Last Admin: 09/06/18 10:25 Dose: 150 mls/hr Cefazolin Sodium 2 gm/ (Dextrose) 50 mls @ 100 mls/hr IVPB Q8H-IV [facility] Lorazepam (Ativan Injection -) 0.5 mg IVPUSH Q6H PRN PRN Reason: ANXIETY Last Admin: 09/05/18 13:32 Dose: 0.5 mg Olanzapine (Zyprexa -) 5 mg PO HS [facility] Last Admin: 09/05/18 22:05 Dose: Not Given - Objective Vital Signs: Vital Signs Temperature 98.0 F 09/06/18 14:43 Pulse Rate 94 H 09/06/18 14:43 Respiratory Rate 20 09/06/18 14:43 Blood Pressure 168/77 09/06/18 14:43 O2 Sat by Pulse Oximetry (%) 98 09/04/18 21:00 Cardiovascular: Yes: Regular Rate and Rhythm, S1, S2 Respiratory: Yes: CTA Bilaterally Gastrointestinal: Yes: Normal Bowel Sounds, Soft. No: Tenderness Edema: Yes Labs: CBC, BMP 09/06/18 12:47 09/06/18 12:47 INR, PTT INR 1.32 (0.83-1.09) H 09/02/18 18:50 Assessment/Plan Polymicrobial bacteremia ? source E coli UTI/ bacteremia Substitute cefazolin 2gm q8h Repeat BC am CT A/P when less agitated
[2018-09-06] MEDS ORDERED: CEFAZOLIN 2 GM in DEXTROSE 5%-WATER - 50 ML IVPB SCH (15:30)
--- NOTE | 2018-09-06 16:46 | PN ---
Progress Note (short form) - Note Progress Note: NEUROLOGY FOLLOW-UP Events reviewed and discussed with and son at bedside. Na+ today still= 160 mg% and Cl- still = 130. Off vancomicin and ceftriaxone. On Cefepime. Zyprexa reduced to 5 mg but held last night due to lethargy. Still lethargic in 2 pt restraints. EXAM: Opens eyes and grimaces to gentle sternal rub. Full wood to threat. Moves all fours well. IMP: Non-focal exam sig for severe B/L cerebral dysfunction. Toxic-metabolic encephalopathy due to dehydration. SUGGEST: Continue hydration, follow Lytes CT of head (C-) D/C Zyprexa for now. Thank you very much, Mike Johnston MD
[2018-09-06] MEDS: CEFAZOLIN 2 GM/D5W 2 GM/50 ML ML IVPB SCH (17:34)
[2018-09-07] MEDS: CEFAZOLIN 2 GM/D5W 2 GM/50 ML ML IVPB SCH ×3 (02:46→17:40)
[2018-09-07] MEDS: POTASSIUM CHLORIDE 20 MEQ in DEXTROSE 5%-WATER - 1,000 ML IVPB SCH ×4 (03:56→21:36)
--- NOTE | 2018-09-07 08:13 | PN ---
Progress Note (short form) - Note Progress Note: Renal follow up for ZAID/Hypernatremia Pt seen and examined at the bedside more awake and alert but still confused no overnight events pt not able to provide ROS Vital Signs Temperature 98.0 F 09/07/18 00:00 Pulse Rate 85 09/07/18 00:00 Respiratory Rate 20 09/07/18 00:00 Blood Pressure 146/50 L 09/07/18 00:00 O2 Sat by Pulse Oximetry (%) 98 09/04/18 21:00 Intake & Output 09/04/18 09/05/18 09/06/18 09/07/18 23:59 23:59 23:59 23:59 Intake Total 1100 2550 1350 1700 Output Total 1500 500 900 600 Balance -400 2050 450 1100 Weight 109.769 kg NAD Dry MMM RRR CTA no Le edema todays labs pending Current Medications Heparin Sodium (Porcine) (Heparin -) 5,000 unit SQ BID [facility] Last Admin: 09/06/18 23:15 Dose: 5,000 unit Potassium Chloride 20 meq/ (Dextrose) 1,010 mls @ 150 mls/hr IVPB Q404M [facility] Last Admin: 09/07/18 03:56 Dose: 150 mls/hr Cefazolin Sodium/Dextrose (Ancef 2 Gm Premixed Ivpb -) 2 gm in 50 mls @ 100 mls /hr IVPB Q8H-IV [facility] Last Admin: 09/07/18 02:46 Dose: 100 mls/hr Lorazepam (Ativan Injection -) 0.5 mg IVPUSH Q6H PRN PRN Reason: ANXIETY Last Admin: 09/05/18 13:32 Dose: 0.5 mg 88 year old gentleman with hx of Dementia, hypertension, , Hyperlipidemia who presented from [place] with dehydration and hypernatremia and ZAID. #ZAID likely due to intravascular volume depletion (Baseline Cr 1.1) #Hypernatremia in setting of Dementia and poor oral intake (water deficit is 12.9L) #Anemia #Hx of Hypertension (now normotensive) #Dementia Renal function improving serum na improving as of yesterday, todays labs pending contineu D5 with KCl at the present rate, will titrate based on serum na today continue supportive care Thank you Sarkis Abebe DO
[2018-09-07] MEDS: HEPARIN NA (PORCINE) 5,000 UNITS/ML 1ML VIAL SQ SCH ×2 (10:10→21:36)
[2018-09-07 10:46] LABS: ALBUMIN 2.4 g/dl (3.4-5.0); ALK PHOS 79 U/L (45-117); ANION GAP 7 MMOL/L (8-16); BILIRUBIN,TOTAL 0.4 mg/dL (0.2-1); BLOOD UREA NITROGEN 21 mg/dL (7-18); CALCIUM 7.9 mg/dL (8.5-10.1); CHLORIDE 123 mmol/L (98-107); CO2 24 mmol/L (21-32); CREATININE 1.3 mg/dL (0.55-1.3); GLUCOSE,RANDOM 142 mg/dL (74-106); POTASSIUM 3.9 mmol/L (3.5-5.1); SGOT/AST 81 U/L (15-37); SGPT/ALT 83 U/L (13-61); SODIUM 154 mmol/L (136-145); TOT PROT 6.4 g/dl (6.4-8.2)
--- NOTE | 2018-09-07 11:53 | PN ---
Progress Note, Physician - Current Medication List Current Medications: Active Medications Heparin Sodium (Porcine) (Heparin -) 5,000 unit SQ BID [facility] Last Admin: 09/07/18 10:10 Dose: 5,000 unit Cefazolin Sodium/Dextrose (Ancef 2 Gm Premixed Ivpb -) 2 gm in 50 mls @ 100 mls /hr IVPB Q8H-IV [facility] Last Admin: 09/07/18 10:10 Dose: 100 mls/hr Potassium Chloride 20 meq/ (Dextrose) 1,010 mls @ 100 mls/hr IVPB Q10H [facility] Lorazepam (Ativan Injection -) 0.5 mg IVPUSH Q6H PRN PRN Reason: ANXIETY Last Admin: 09/05/18 13:32 Dose: 0.5 mg - Objective Vital Signs: Vital Signs Temperature 98.0 F 09/07/18 00:00 Pulse Rate 85 09/07/18 00:00 Respiratory Rate 20 09/07/18 00:00 Blood Pressure 146/50 L 09/07/18 00:00 O2 Sat by Pulse Oximetry (%) 98 09/06/18 21:00 Cardiovascular: Yes: S1, S2 Respiratory: Yes: Regular, CTA Bilaterally Gastrointestinal: Yes: Normal Bowel Sounds, Soft Labs: CBC, BMP 09/06/18 12:47 09/07/18 09:38 INR, PTT INR 1.32 (0.83-1.09) H 09/02/18 18:50 Assessment/Plan - Problems (1) Dehydration with hypernatremia Assessment/Plan: renal on board na 154- not safe for po trials palliative order DNR/DNI Code(s): E87.0 - HYPEROSMOLALITY AND HYPERNATREMIA (2) Bacteremia Assessment/Plan: ceftriaxone and vancomycin awaiting final cultures Microbiology 09/03/18 16:00 Blood - Peripheral Venous Blood Culture - Final Escherichia Coli 09/02/18 19:00 Urine - Urine - Catheterized Urine Culture - Final Escherichia Coli Code(s): R78.81 - BACTEREMIA (3) Dementia Assessment/Plan: dr lacy consult noted patient not taking in oral meds - has not take nameda or zyprexa iv ativan as needed on vest adn wrist restraints Code(s): F03.90 - UNSPECIFIED DEMENTIA WITHOUT BEHAVIORAL DISTURBANCE Qualifiers: Dementia behavioral disturbance: with behavioral disturbance (4) Change in mental status Assessment/Plan: neuro eval- noted monitor sodium ivf repeat bmp Code(s): R41.82 - ALTERED MENTAL STATUS, UNSPECIFIED (5) ZAID (acute kidney injury) Assessment/Plan: renal function improving on ivf repeat labs ordered today Code(s): N17.9 - ACUTE KIDNEY FAILURE, UNSPECIFIED
[2018-09-07] MEDS ORDERED: PT OWN MED DRAWER 7, Y5N ONE ×2 (21:14→22:44)
[2018-09-08] MEDS: CEFAZOLIN 2 GM/D5W 2 GM/50 ML ML IVPB SCH ×3 (01:22→18:33)
[2018-09-08] MEDS ORDERED: LIDOCAINE HCL 2% JELLY 10 ML CARTRIDGE UR ONE (03:33)
[2018-09-08] MEDS: POTASSIUM CHLORIDE 20 MEQ in DEXTROSE 5%-WATER - 1,000 ML IVPB SCH ×2 (06:10→18:32)
--- NOTE | 2018-09-08 08:36 | PN ---
Progress Note (short form) - Note Progress Note: Renal follow up for ZAID/Hypernatremia Vital Signs Temperature 98.1 F 09/08/18 04:00 Pulse Rate 82 09/08/18 04:00 Respiratory Rate 18 09/08/18 04:00 Blood Pressure 158/71 09/08/18 04:00 O2 Sat by Pulse Oximetry (%) 98 09/07/18 21:00 Intake & Output 09/05/18 09/06/18 09/07/18 09/08/18 23:59 23:59 23:59 23:59 Intake Total 2550 1350 1700 Output Total 583 366 8504 100 Balance 2050 450 650 -100 CBC, BMP 09/06/18 12:47 Current Medications Heparin Sodium (Porcine) (Heparin -) 5,000 unit SQ BID [facility] Last Admin: 09/07/18 21:36 Dose: 5,000 unit Cefazolin Sodium/Dextrose (Ancef 2 Gm Premixed Ivpb -) 2 gm in 50 mls @ 100 mls /hr IVPB Q8H-IV [facility] Last Admin: 09/08/18 01:22 Dose: 100 mls/hr Potassium Chloride 20 meq/ (Dextrose) 1,010 mls @ 100 mls/hr IVPB Q10H [facility] Last Admin: 09/08/18 06:10 Dose: Not Given Lorazepam (Ativan Injection -) 0.5 mg IVPUSH Q6H PRN PRN Reason: ANXIETY Last Admin: 09/05/18 13:32 Dose: 0.5 mg 88 year old gentleman with hx of Dementia, hypertension, , Hyperlipidemia who presented from [place] with dehydration and hypernatremia and ZAID. #ZAID likely due to intravascular volume depletion (Baseline Cr 1.1) #Hypernatremia in setting of Dementia and poor oral intake (water deficit is 12.9L) #Anemia #Hx of Hypertension (now normotensive) #Dementia Thank you Sarkis Abebe DO
[2018-09-08 09:12] LABS: ALBUMIN 2.1 g/dl (3.4-5.0); ALK PHOS 72 U/L (45-117); ANION GAP 9 MMOL/L (8-16); BILIRUBIN,TOTAL 0.4 mg/dL (0.2-1); BLOOD UREA NITROGEN 18 mg/dL (7-18); CALCIUM 7.9 mg/dL (8.5-10.1); CHLORIDE 118 mmol/L (98-107); CO2 22 mmol/L (21-32); CREATININE 1.2 mg/dL (0.55-1.3); GLUCOSE,RANDOM 132 mg/dL (74-106); MAGNESIUM 2.3 mg/dL (1.8-2.4); PHOSPHOROUS 2.6 mg/dL (2.5-4.9); SGOT/AST 61 U/L (15-37); SGPT/ALT 50 U/L (13-61); SODIUM 150 mmol/L (136-145)
--- NOTE | 2018-09-08 09:47 | PN ---
Progress Note, Physician - Current Medication List Current Medications: Active Medications Heparin Sodium (Porcine) (Heparin -) 5,000 unit SQ BID [facility] Last Admin: 09/07/18 21:36 Dose: 5,000 unit Cefazolin Sodium/Dextrose (Ancef 2 Gm Premixed Ivpb -) 2 gm in 50 mls @ 100 mls /hr IVPB Q8H-IV [facility] Last Admin: 09/08/18 01:22 Dose: 100 mls/hr Potassium Chloride 20 meq/ (Dextrose) 1,010 mls @ 100 mls/hr IVPB Q10H [facility] Last Admin: 09/08/18 06:10 Dose: Not Given Lorazepam (Ativan Injection -) 0.5 mg IVPUSH Q6H PRN PRN Reason: ANXIETY Last Admin: 09/05/18 13:32 Dose: 0.5 mg - Objective Vital Signs: Vital Signs Temperature 98.1 F 09/08/18 04:00 Pulse Rate 82 09/08/18 04:00 Respiratory Rate 18 09/08/18 04:00 Blood Pressure 158/71 09/08/18 04:00 O2 Sat by Pulse Oximetry (%) 98 09/07/18 21:00 Cardiovascular: Yes: S1, S2 Respiratory: Yes: Regular, CTA Bilaterally Gastrointestinal: Yes: Normal Bowel Sounds, Soft. No: Tenderness Labs: CBC, BMP 09/06/18 12:47 09/08/18 07:20 INR, PTT INR 1.32 (0.83-1.09) H 09/02/18 18:50 Assessment/Plan - Problems (1) Dehydration with hypernatremia Assessment/Plan: renal on board na 150- not safe for po trials palliative order DNR/DNI Code(s): E87.0 - HYPEROSMOLALITY AND HYPERNATREMIA (2) Bacteremia Assessment/Plan: cefazolin--per id awaiting final cultures Microbiology 09/07/18 09:38 Blood - Peripheral Venous Blood Culture - Preliminary NO GROWTH OBTAINED AFTER 24 HOURS, INCUBATION TO CONTINUE FOR 4 DAYS. 09/07/18 09:16 Blood - Peripheral Venous Blood Culture - Preliminary NO GROWTH OBTAINED AFTER 24 HOURS, INCUBATION TO CONTINUE FOR 4 DAYS. 09/02/18 18:00 Blood - Peripheral Venous Blood Culture - Final NO GROWTH AFTER 5 DAYS INCUBATION 09/03/18 18:00 Blood - Peripheral Venous Blood Culture - Preliminary NO GROWTH OBTAINED AFTER 96 HOURS, INCUBATION TO CONTINUE FOR 1 DAYS. 09/02/18 18:50 Blood - Peripheral Venous Blood Culture - Final Gemella Morbillorum Staphylococcus Aureus 09/03/18 16:00 Blood - Peripheral Venous Blood Culture - Final Escherichia Coli 09/02/18 19:00 Urine - Urine - Catheterized Urine Culture - Final Escherichia Coli Code(s): R78.81 - BACTEREMIA (3) Dementia Assessment/Plan: dr lacy consult noted patient not taking in oral meds - has not take nameda or zyprexa iv ativan as needed on vest adn wrist restraints Code(s): F03.90 - UNSPECIFIED DEMENTIA WITHOUT BEHAVIORAL DISTURBANCE Qualifiers: Dementia behavioral disturbance: with behavioral disturbance (4) Change in mental status Assessment/Plan: neuro eval- noted monitor sodium ivf repeat bmp Code(s): R41.82 - ALTERED MENTAL STATUS, UNSPECIFIED (5) ZAID (acute kidney injury) Assessment/Plan: renal function improving on ivf repeat labs ordered today Code(s): N17.9 - ACUTE KIDNEY FAILURE, UNSPECIFIED
[2018-09-08] MEDS: HEPARIN NA (PORCINE) 5,000 UNITS/ML 1ML VIAL SQ SCH ×2 (10:11→23:36)
--- NOTE | 2018-09-08 11:45 | PN ---
Progress Note (short form) - Note Progress Note: Renal follow up for ZAID/Hypernatremia Pt seen and examine at the bedside no overnight events more awake but agitated not able to provide ROS Vital Signs Temperature 98.1 F 09/08/18 04:00 Pulse Rate 82 09/08/18 04:00 Respiratory Rate 18 09/08/18 04:00 Blood Pressure 158/71 09/08/18 04:00 O2 Sat by Pulse Oximetry (%) 98 09/07/18 21:00 Intake & Output 09/05/18 09/06/18 09/07/18 09/08/18 23:59 23:59 23:59 23:59 Intake Total 2550 1350 1700 Output Total 279 678 2991 100 Balance 2050 450 650 -100 NAD neck supple no JVD No LE edema CBC, BMP 09/06/18 12:47 09/08/18 07:20 Current Medications Heparin Sodium (Porcine) (Heparin -) 5,000 unit SQ BID [facility] Last Admin: 09/07/18 21:36 Dose: 5,000 unit Cefazolin Sodium/Dextrose (Ancef 2 Gm Premixed Ivpb -) 2 gm in 50 mls @ 100 mls /hr IVPB Q8H-IV [facility] Last Admin: 09/08/18 01:22 Dose: 100 mls/hr Potassium Chloride 20 meq/ (Dextrose) 1,010 mls @ 100 mls/hr IVPB Q10H [facility] Last Admin: 09/08/18 06:10 Dose: Not Given Lorazepam (Ativan Injection -) 0.5 mg IVPUSH Q6H PRN PRN Reason: ANXIETY Last Admin: 09/05/18 13:32 Dose: 0.5 mg 88 year old gentleman with hx of Dementia, hypertension, , Hyperlipidemia who presented from [place] with dehydration and hypernatremia and ZAID. #ZAID likely due to intravascular volume depletion (Baseline Cr 1.1) #Hypernatremia in setting of Dementia and poor oral intake (water deficit is 12.9L) #Anemia #Hx of Hypertension (now normotensive) #Dementia Serum Na improving renal function now improved to WNL continue D5W with KCl Trend Na daily continue abx as per primary and ID Thank you Sarkis Abebe DO
[2018-09-09] MEDS: CEFAZOLIN 2 GM/D5W 2 GM/50 ML ML IVPB SCH ×3 (01:48→17:52)
[2018-09-09] MEDS: POTASSIUM CHLORIDE 20 MEQ in DEXTROSE 5%-WATER - 1,000 ML IVPB SCH ×3 (06:10→23:44)
[2018-09-09 08:40] LABS: ANION GAP 7 MMOL/L (8-16); BLOOD UREA NITROGEN 17 mg/dL (7-18); CALCIUM 7.9 mg/dL (8.5-10.1); CHLORIDE 114 mmol/L (98-107); CO2 23 mmol/L (21-32); CREATININE 1.2 mg/dL (0.55-1.3); GLUCOSE,RANDOM 130 mg/dL (74-106); MAGNESIUM 2.4 mg/dL (1.8-2.4); PHOSPHOROUS 2.5 mg/dL (2.5-4.9); POTASSIUM 3.9 mmol/L (3.5-5.1); SODIUM 144 mmol/L (136-145)
[2018-09-09] MEDS: HEPARIN NA (PORCINE) 5,000 UNITS/ML 1ML VIAL SQ SCH ×2 (10:23→21:50)
--- NOTE | 2018-09-09 10:52 | PN ---
Progress Note (short form) - Note Progress Note: Renal follow up for ZAID/Hypernatremia Pt seen and examined at the bedside lethargic no overnight events on IVF Vital Signs Temperature 98.1 F 09/09/18 09:30 Pulse Rate 62 09/09/18 09:30 Respiratory Rate 18 09/09/18 09:30 Blood Pressure 129/65 09/09/18 09:30 O2 Sat by Pulse Oximetry (%) 98 09/08/18 21:00 Intake & Output 09/06/18 09/07/18 09/08/18 09/09/18 23:59 23:59 23:59 23:59 Intake Total 1350 1700 500 600 Output Total 900 1050 200 Balance 450 650 300 600 NAD No LE edema CBC, BMP 09/06/18 12:47 09/09/18 07:40 Current Medications Heparin Sodium (Porcine) (Heparin -) 5,000 unit SQ BID [facility] Last Admin: 09/09/18 10:23 Dose: 5,000 unit Cefazolin Sodium/Dextrose (Ancef 2 Gm Premixed Ivpb -) 2 gm in 50 mls @ 100 mls /hr IVPB Q8H-IV [facility] Last Admin: 09/09/18 10:23 Dose: 100 mls/hr Potassium Chloride 20 meq/ (Dextrose) 1,010 mls @ 100 mls/hr IVPB Q10H [facility] Last Admin: 09/09/18 06:10 Dose: 100 mls/hr 88 year old gentleman with hx of Dementia, hypertension, , Hyperlipidemia who presented from [place] with dehydration and hypernatremia and ZAID. #ZAID likely due to intravascular volume depletion (Baseline Cr 1.1) #Hypernatremia in setting of Dementia and poor oral intake (water deficit is 12.9L) #Anemia #Hx of Hypertension (now normotensive) #Dementia Serum Na now improved to normal will decrease IVF rate oral intake when cleared by speech pathologist continue supportive care Thank you Sarkis Abebe DO
--- NOTE | 2018-09-09 12:33 | PN ---
Progress Note, ROENTGENOLOGIST - Note Progress Note: 88 male with pmh of dementia, DM, HTN, hyperlipidemia, , MR, prior SVT, sent from [facility] to inpatient for dehydration, decreased PO intake and abnormal lab results. Patient had decreased PO intake and was agitated. He had hypernatremia on labs at [place]. Pt was on a reg diet/thin liquids at [place], with dehydration, poor PO intake. Unknown if that was acute or ongoing, however, per PMD who spoke to at [place] last week she didnt want g tube. Pt NPO. Speech/Swallowing reassessed-Refused trial of applesauce. Independently took large sip of water, swishing it around in his mouth and unable to spit it out. This is c/w dementia, sometimes infection/dehydration. Pos blood culture, on A/B tx. Selected Entries 09/09/18 09/09/18 09/09/18 04:00 09:30 11:37 Breakfast NPO Temperature 98.1 F 98.1 F Laboratory Tests 09/06/18 12:47 WBC 10.6 H Consider Clinimix if not medically contraindicated, and to re-address end of life wishes re: GT/ Hospice? f/u Palliative care consult
--- NOTE | 2018-09-09 14:11 | PN ---
Progress Note, Physician Chief Complaint: patient seen and examined and responds to his name by saying what jazmine not open his eyes sodium has improved - Current Medication List Current Medications: Active Medications Heparin Sodium (Porcine) (Heparin -) 5,000 unit SQ BID [facility] Last Admin: 09/09/18 10:23 Dose: 5,000 unit Cefazolin Sodium/Dextrose (Ancef 2 Gm Premixed Ivpb -) 2 gm in 50 mls @ 100 mls /hr IVPB Q8H-IV [facility] Last Admin: 09/09/18 10:23 Dose: 100 mls/hr Potassium Chloride 20 meq/ (Dextrose) 1,010 mls @ 100 mls/hr IVPB Q10H [facility] Last Admin: 09/09/18 06:10 Dose: 100 mls/hr - Objective Vital Signs: Vital Signs Temperature 98.1 F 09/09/18 09:30 Pulse Rate 62 09/09/18 09:30 Respiratory Rate 18 09/09/18 09:30 Blood Pressure 129/65 09/09/18 09:30 O2 Sat by Pulse Oximetry (%) 98 09/08/18 21:00 Constitutional: Yes: Calm Cardiovascular: Yes: Regular Rate and Rhythm, S1, S2 Respiratory: Yes: Diminished Gastrointestinal: Yes: Normal Bowel Sounds, Soft Extremities: Yes: Other (chronic skin changes) Neurological: Yes: Other (responds to his name) Labs: CBC, BMP 09/06/18 12:47 09/09/18 07:40 INR, PTT INR 1.32 (0.83-1.09) H 09/02/18 18:50 Problem List - Problems (1) Dehydration with hypernatremia Assessment/Plan: sodium improved still on ivf [place] not not able to swallow hold food in mouth spoke to she says no feeding tube told her about ng tube and patient pulling it out Felicia wants him comfortable she will speak to her son about it but wants ivf i did mention calvary to her as well she will speak to her son Code(s): E87.0 - HYPEROSMOLALITY AND HYPERNATREMIA (2) Bacteremia Assessment/Plan: ceftriaxone and vancomycin awaiting final cultures Microbiology 09/03/18 16:00 Blood - Peripheral Venous Blood Culture - Final Escherichia Coli 09/02/18 19:00 Urine - Urine - Catheterized Urine Culture - Final Escherichia Coli cefazolin iv new blood cultures no growth Microbiology 09/03/18 18:00 Blood - Peripheral Venous Blood Culture - Final NO GROWTH AFTER 5 DAYS INCUBATION 09/07/18 09:38 Blood - Peripheral Venous Blood Culture - Preliminary NO GROWTH OBTAINED AFTER 48 HOURS, INCUBATION TO CONTINUE FOR 3 DAYS. 09/07/18 09:16 Blood - Peripheral Venous Blood Culture - Preliminary NO GROWTH OBTAINED AFTER 48 HOURS, INCUBATION TO CONTINUE FOR 3 DAYS. Code(s): R78.81 - BACTEREMIA (3) Dementia Assessment/Plan: dr lacy consult noted patient not taking in oral meds - has not take nameda or zyprexa iv ativan as needed on vest adn wrist restraints Code(s): F03.90 - UNSPECIFIED DEMENTIA WITHOUT BEHAVIORAL DISTURBANCE Qualifiers: Dementia behavioral disturbance: with behavioral disturbance (4) Change in mental status Assessment/Plan: improved from before sodium better on iv fluids Code(s): R41.82 - ALTERED MENTAL STATUS, UNSPECIFIED (5) ZAID (acute kidney injury) Assessment/Plan: renal function improving on ivf bun/cr now normal Code(s): N17.9 - ACUTE KIDNEY FAILURE, UNSPECIFIED Assessment/Plan to speak to son about comfort care then will decide and let us know she doesnot want feeding tube but wants ivf
--- NOTE | 2018-09-09 16:12 | PN ---
Progress Note, Physician History of Present Illness: Awake, responsive Less confused and agitated Not conversant Afebrile BC polymicrobial CT A/P no acute pathology - Current Medication List Current Medications: Active Medications Heparin Sodium (Porcine) (Heparin -) 5,000 unit SQ BID [facility] Last Admin: 09/09/18 10:23 Dose: 5,000 unit Cefazolin Sodium/Dextrose (Ancef 2 Gm Premixed Ivpb -) 2 gm in 50 mls @ 100 mls /hr IVPB Q8H-IV [facility] Last Admin: 09/09/18 10:23 Dose: 100 mls/hr Potassium Chloride 20 meq/ (Dextrose) 1,010 mls @ 100 mls/hr IVPB Q10H [facility] Last Admin: 09/09/18 06:10 Dose: 100 mls/hr - Objective Vital Signs: Vital Signs Temperature 98.0 F 09/09/18 14:23 Pulse Rate 97 H 09/09/18 14:23 Respiratory Rate 20 09/09/18 14:23 Blood Pressure 113/55 L 09/09/18 14:23 O2 Sat by Pulse Oximetry (%) 98 09/09/18 09:30 Constitutional: Yes: No Distress Eyes: Yes: Conjunctiva Clear Cardiovascular: Yes: Regular Rate and Rhythm, S1, S2 Respiratory: Yes: CTA Bilaterally Gastrointestinal: Yes: Normal Bowel Sounds, Soft. No: Tenderness Edema: Yes Labs: CBC, BMP 09/06/18 12:47 09/09/18 07:40 INR, PTT INR 1.32 (0.83-1.09) H 09/02/18 18:50 Assessment/Plan Polymicrobial bacteremia ? source E coli UTI/ bacteremia Continue cefazolin 2gm q8h Repeat BC no growth Hospice care being discussed
[2018-09-10] MEDS: CEFAZOLIN 2 GM/D5W 2 GM/50 ML ML IVPB SCH ×3 (01:54→17:19)
[2018-09-10] MEDS ORDERED: PT OWN MED DRAWER 7, Y5N ONE (09:06)
--- NOTE | 2018-09-10 09:12 | PN ---
Progress Note, Physician - Current Medication List Current Medications: Active Medications Heparin Sodium (Porcine) (Heparin -) 5,000 unit SQ BID [facility] Last Admin: 09/09/18 21:50 Dose: 5,000 unit Cefazolin Sodium/Dextrose (Ancef 2 Gm Premixed Ivpb -) 2 gm in 50 mls @ 100 mls /hr IVPB Q8H-IV [facility] Last Admin: 09/10/18 01:54 Dose: 100 mls/hr Potassium Chloride 20 meq/ (Dextrose) 1,010 mls @ 100 mls/hr IVPB Q10H [facility] Last Admin: 09/09/18 23:44 Dose: Not Given - Objective Vital Signs: Vital Signs Temperature 98.4 F 09/10/18 06:00 Pulse Rate 98 H 09/10/18 06:00 Respiratory Rate 18 09/10/18 06:00 Blood Pressure 124/75 09/10/18 06:00 O2 Sat by Pulse Oximetry (%) 100 09/09/18 21:00 Cardiovascular: Yes: S1, S2 Respiratory: Yes: Regular, CTA Bilaterally Gastrointestinal: Yes: Normal Bowel Sounds, Soft Labs: CBC, BMP 09/06/18 12:47 09/09/18 07:40 INR, PTT INR 1.32 (0.83-1.09) H 09/02/18 18:50 Assessment/Plan - Problems (1) Dehydration with hypernatremia Assessment/Plan: sodium improved still on ivf appreciate shree carrillo not not able to swallow hold food in mouth--mbs spoke to she says no feeding tube told her about ng tube and patient pulling it out Felicia wants him comfortable she will speak to her son about it but wants ivf i did mention calvary to her as well she will speak to her son Code(s): E87.0 - HYPEROSMOLALITY AND HYPERNATREMIA (2) Bacteremia Assessment/Plan: ceftriaxone and vancomycin awaiting final cultures Microbiology 09/03/18 16:00 Blood - Peripheral Venous Blood Culture - Final Escherichia Coli 09/02/18 19:00 Urine - Urine - Catheterized Urine Culture - Final Escherichia Coli cefazolin iv new blood cultures no growth Microbiology 09/03/18 18:00 Blood - Peripheral Venous Blood Culture - Final NO GROWTH AFTER 5 DAYS INCUBATION 09/07/18 09:38 Blood - Peripheral Venous Blood Culture - Preliminary NO GROWTH OBTAINED AFTER 48 HOURS, INCUBATION TO CONTINUE FOR 3 DAYS. 09/07/18 09:16 Blood - Peripheral Venous Blood Culture - Preliminary NO GROWTH OBTAINED AFTER 48 HOURS, INCUBATION TO CONTINUE FOR 3 DAYS. Code(s): R78.81 - BACTEREMIA (3) Dementia Assessment/Plan: dr lacy consult noted patient not taking in oral meds - has not take nameda or zyprexa iv ativan as needed on vest adn wrist restraints Code(s): F03.90 - UNSPECIFIED DEMENTIA WITHOUT BEHAVIORAL DISTURBANCE Qualifiers: Dementia behavioral disturbance: with behavioral disturbance (4) Change in mental status Assessment/Plan: improved from before sodium better on iv fluids Code(s): R41.82 - ALTERED MENTAL STATUS, UNSPECIFIED (5) ZAID (acute kidney injury) Assessment/Plan: renal function improving on ivf bun/cr now normal Code(s): N17.9 - ACUTE KIDNEY FAILURE, UNSPECIFIED Assessment/Plan to speak to son about comfort care then will decide and let us know she doesnot want feeding tube but wants ivf
[2018-09-10] MEDS: POTASSIUM CHLORIDE 20 MEQ in DEXTROSE 5%-WATER - 1,000 ML IVPB SCH (09:20)
[2018-09-10] MEDS: HEPARIN NA (PORCINE) 5,000 UNITS/ML 1ML VIAL SQ SCH (10:43)
--- NOTE | 2018-09-10 10:55 | PN ---
Progress Note (short form) - Note Progress Note: Renal follow up for ZAID/Hypernatremia Pt seen and examined at the bedside awake and alert but confused mental status much improved today on IVF s/p barium swallow Vital Signs Temperature 98.6 F 09/10/18 10:23 Pulse Rate 96 H 09/10/18 10:23 Respiratory Rate 18 09/10/18 10:23 Blood Pressure 117/85 09/10/18 10:23 O2 Sat by Pulse Oximetry (%) 100 09/09/18 21:00 Intake & Output 09/07/18 09/08/18 09/09/18 09/10/18 23:59 23:59 23:59 23:59 Intake Total 9156 212 2534 1200 Output Total 1050 200 400 Balance 745 531 0042 1200 NAD Dry MM No Le edema CBC, BMP 09/06/18 12:47 09/09/18 07:40 Current Medications Heparin Sodium (Porcine) (Heparin -) 5,000 unit SQ BID [facility] Last Admin: 09/10/18 10:43 Dose: 5,000 unit Cefazolin Sodium/Dextrose (Ancef 2 Gm Premixed Ivpb -) 2 gm in 50 mls @ 100 mls /hr IVPB Q8H-IV [facility] Last Admin: 09/10/18 10:48 Dose: 100 mls/hr Potassium Chloride 20 meq/ (Dextrose) 1,010 mls @ 100 mls/hr IVPB Q10H [facility] Last Admin: 09/10/18 09:20 Dose: Not Given 88 year old gentleman with hx of Dementia, hypertension, , Hyperlipidemia who presented from [place] with dehydration and hypernatremia and ZAID. #ZAID likely due to intravascular volume depletion (Baseline Cr 1.1) #Hypernatremia in setting of Dementia and poor oral intake (water deficit is 12.9L) #Anemia #Hx of Hypertension (now normotensive) #Dementia #Thrombocytopenia Renal function and serum na now improved to WNL can d/c D5W solution ideally should be feed if pt can swallow safely will start gentle hydration with Clinimix Platelet counts downtrending? etiology, r/o HIT d/c heparin and start compression stockings Thank you Sarkis Abebe DO
[2018-09-10 13:39] LABS: ANION GAP 7 MMOL/L (8-16); BLOOD UREA NITROGEN 12 mg/dL (7-18); CALCIUM 7.8 mg/dL (8.5-10.1); CHLORIDE 111 mmol/L (98-107); CO2 23 mmol/L (21-32); GLUCOSE,RANDOM 108 mg/dL (74-106); SODIUM 141 mmol/L (136-145)
[2018-09-10] MEDS: AMINO ACIDS 4.25%/D5W 1,000 ML IV SCH (16:00)
[2018-09-11] MEDS: CEFAZOLIN 2 GM/D5W 2 GM/50 ML ML IVPB SCH ×3 (02:33→17:06)
--- NOTE | 2018-09-11 08:20 | PN ---
Progress Note, Physician - Current Medication List Current Medications: Active Medications Cefazolin Sodium/Dextrose (Ancef 2 Gm Premixed Ivpb -) 2 gm in 50 mls @ 100 mls /hr IVPB Q8H-IV QAMAR Last Admin: 09/11/18 02:33 Dose: Not Given Amino Acids (Clinimix -) 1,000 mls @ 42 mls/hr IV Q24H QAMAR Last Admin: 09/10/18 16:00 Dose: Not Given - Objective Vital Signs: Vital Signs Temperature 99.3 F 09/11/18 06:00 Pulse Rate 95 H 09/11/18 06:00 Respiratory Rate 20 09/11/18 06:00 Blood Pressure 115/64 09/11/18 06:00 O2 Sat by Pulse Oximetry (%) 94 L 09/10/18 21:00 Cardiovascular: Yes: S1, S2 Respiratory: Yes: Regular, CTA Bilaterally Gastrointestinal: Yes: Normal Bowel Sounds, Soft Labs: INR, PTT INR 1.32 (0.83-1.09) H 09/02/18 18:50 Assessment/Plan - Problems (1) Dehydration with hypernatremia Assessment/Plan: sodium improved off ivf appreciate shree carrillo not not able to swallow hold food in mouth--mbs--not cooperative spoke to son he will discuss feeding tube vs comfort care i did mention calvary to her as well she will speak to her son Code(s): E87.0 - HYPEROSMOLALITY AND HYPERNATREMIA (2) Bacteremia Assessment/Plan: ceftriaxone and vancomycin awaiting final cultures Microbiology 09/03/18 16:00 Blood - Peripheral Venous Blood Culture - Final Escherichia Coli 09/02/18 19:00 Urine - Urine - Catheterized Urine Culture - Final Escherichia Coli cefazolin iv new blood cultures no growth Microbiology 09/03/18 18:00 Blood - Peripheral Venous Blood Culture - Final NO GROWTH AFTER 5 DAYS INCUBATION 09/07/18 09:38 Blood - Peripheral Venous Blood Culture - Preliminary NO GROWTH OBTAINED AFTER 48 HOURS, INCUBATION TO CONTINUE FOR 3 DAYS. 09/07/18 09:16 Blood - Peripheral Venous Blood Culture - Preliminary NO GROWTH OBTAINED AFTER 48 HOURS, INCUBATION TO CONTINUE FOR 3 DAYS. Code(s): R78.81 - BACTEREMIA (3) Dementia Assessment/Plan: dr lacy consult noted patient not taking in oral meds - has not take nameda or zyprexa ativan as needed on vest adn wrist restraints Code(s): F03.90 - UNSPECIFIED DEMENTIA WITHOUT BEHAVIORAL DISTURBANCE Qualifiers: Dementia behavioral disturbance: with behavioral disturbance (4) Change in mental status Assessment/Plan: improved from before sodium better on iv fluids Code(s): R41.82 - ALTERED MENTAL STATUS, UNSPECIFIED (5) ZAID (acute kidney injury) Assessment/Plan: renal function improving on ivf bun/cr now normal Code(s): N17.9 - ACUTE KIDNEY FAILURE, UNSPECIFIED Assessment/Plan son to speak to son about comfort care then will decide and let us know regarding want feeding tube
[2018-09-11 08:43] LABS: BASO % 0.4 % (0-2.0); EOS % 1.4 % (0-4.5); HEMATOCRIT 31.8 % (35.4-49); HEMOGLOBIN 10.2 GM/dL (11.7-16.9); LYMPH % 17.1 % (8-40); MCH 26.5 pg (25.7-33.7); MEAN CELL VOLUME 82.9 fl (80-96); MEAN PLT VOLUME 7.8 fl (7.5-11.1); MONO % 9.4 % (3.8-10.2); NEUT % 71.7 % (42.8-82.8); PLATELET COUNT 194 K/MM3 (134-434); RBC 3.84 M/mm3 (4.00-5.60); RDW 14.4 % (11.9-15.9); WHITE BLOOD COUNT 5.3 K/mm3 (4.0-10.0)
[2018-09-11 09:15] LABS: ALBUMIN 2.1 g/dl (3.4-5.0); ALK PHOS 76 U/L (45-117); ANION GAP 6 MMOL/L (8-16); BILIRUBIN,TOTAL 0.5 mg/dL (0.2-1); BLOOD UREA NITROGEN 11 mg/dL (7-18); CHLORIDE 112 mmol/L (98-107); CO2 25 mmol/L (21-32); GLUCOSE,RANDOM 89 mg/dL (74-106); PHOSPHOROUS 3.2 mg/dL (2.5-4.9); POTASSIUM 3.9 mmol/L (3.5-5.1); SGOT/AST 60 U/L (15-37); SGPT/ALT 27 U/L (13-61); SODIUM 143 mmol/L (136-145); TOT PROT 6.2 g/dl (6.4-8.2)
[2018-09-11] MEDS: AMINO ACIDS 4.25%/D5W 1,000 ML IV SCH ×2 (11:13→17:04)
--- NOTE | 2018-09-11 11:25 | PN ---
Progress Note (short form) - Note Progress Note: Renal follow up for ZAID/Hypernatremia Pt seen and examined at the bedside awake and alert, confused no overnight events on IVF Vital Signs Temperature 99.3 F 09/11/18 06:00 Pulse Rate 95 H 09/11/18 06:00 Respiratory Rate 20 09/11/18 06:00 Blood Pressure 115/64 09/11/18 06:00 O2 Sat by Pulse Oximetry (%) 94 L 09/10/18 21:00 Intake & Output 09/08/18 09/09/18 09/10/18 09/11/18 23:59 23:59 23:59 23:59 Intake Total 500 1600 1700 Output Total 200 400 75 100 Balance 300 1200 1625 -100 NAD no LE edema CBC, BMP 09/11/18 08:09 09/11/18 08:09 Current Medications Cefazolin Sodium/Dextrose (Ancef 2 Gm Premixed Ivpb -) 2 gm in 50 mls @ 100 mls /hr IVPB Q8H-IV QAMAR Last Admin: 09/11/18 10:27 Dose: 100 mls/hr Amino Acids (Clinimix -) 1,000 mls @ 42 mls/hr IV Q24H QAMAR Last Admin: 09/11/18 11:13 Dose: 42 mls/hr 88 year old gentleman with hx of Dementia, hypertension, , Hyperlipidemia who presented from [place] with dehydration and hypernatremia and ZAID. #ZAID likely due to intravascular volume depletion (Baseline Cr 1.1) #Hypernatremia in setting of Dementia and poor oral intake (water deficit is 12.9L) #Anemia #Hx of Hypertension (now normotensive) #Dementia #Thrombocytopenia Renal function improved and stable Serum Na stable continue clinimix plt counts improving Thank you Sarkis Abebe DO
--- NOTE | 2018-09-11 11:49 | PN ---
Progress Note, DIRECTOR FRAUD - Note Progress Note: Pt NPO. Refused PO trials for MBS. Tried again at bedside, refusing saying "maybe later". Family considering [place].
--- NOTE | 2018-09-11 16:57 | PN ---
Progress Note, Physician History of Present Illness: Awake, responsive Less confused and agitated Not conversant Afebrile BC polymicrobial CT A/P no acute pathology Day#9 antibiotics - Current Medication List Current Medications: Active Medications Cefazolin Sodium/Dextrose (Ancef 2 Gm Premixed Ivpb -) 2 gm in 50 mls @ 100 mls /hr IVPB Q8H-IV QAMAR Last Admin: 09/11/18 10:27 Dose: 100 mls/hr Amino Acids (Clinimix -) 1,000 mls @ 42 mls/hr IV Q24H QAMAR Last Admin: 09/11/18 11:13 Dose: 42 mls/hr - Objective Vital Signs: Vital Signs Temperature 99.4 F 09/11/18 14:58 Pulse Rate 97 H 09/11/18 13:48 Respiratory Rate 19 09/11/18 13:48 Blood Pressure 107/64 09/11/18 13:48 O2 Sat by Pulse Oximetry (%) 100 09/11/18 09:00 Constitutional: Yes: No Distress Eyes: Yes: Conjunctiva Clear Cardiovascular: Yes: Regular Rate and Rhythm, Murmur, S1, S2 Respiratory: Yes: CTA Bilaterally Gastrointestinal: Yes: Normal Bowel Sounds, Soft. No: Tenderness Edema: Yes Labs: CBC, BMP 09/11/18 08:09 09/11/18 08:09 INR, PTT INR 1.32 (0.83-1.09) H 09/02/18 18:50 Assessment/Plan Polymicrobial bacteremia ? source E coli UTI/ bacteremia Continue cefazolin 2gm q8h Repeat BC no growth Hospice care being discussed
[2018-09-11] MEDS ORDERED: PT OWN MED DRAWER 7, Y5N ONE (23:11)
[2018-09-12] MEDS: CEFAZOLIN 2 GM/D5W 2 GM/50 ML ML IVPB SCH ×3 (02:09→17:30)
[2018-09-12 07:24] LABS: BASO % 0.6 % (0-2.0); EOS % 1.6 % (0-4.5); HEMATOCRIT 28.2 % (35.4-49); LYMPH % 16.5 % (8-40); MCH 26.2 pg (25.7-33.7); MCHC 31.8 g/dl (32.0-35.9); MEAN CELL VOLUME 82.3 fl (80-96); NEUT % 72.3 % (42.8-82.8); PLATELET COUNT 224 K/MM3 (134-434); RBC 3.43 M/mm3 (4.00-5.60); RDW 14.2 % (11.9-15.9); WHITE BLOOD COUNT 4.6 K/mm3 (4.0-10.0)
[2018-09-12 07:58] LABS: ANION GAP 6 MMOL/L (8-16); BLOOD UREA NITROGEN 14 mg/dL (7-18); CALCIUM 7.9 mg/dL (8.5-10.1); CHLORIDE 111 mmol/L (98-107); CO2 26 mmol/L (21-32); CREATININE 0.9 mg/dL (0.55-1.3); GLUCOSE,RANDOM 126 mg/dL (74-106); MAGNESIUM 1.9 mg/dL (1.8-2.4); PHOSPHOROUS 2.6 mg/dL (2.5-4.9); POTASSIUM 3.6 mmol/L (3.5-5.1); SODIUM 142 mmol/L (136-145)
--- NOTE | 2018-09-12 14:23 | PN ---
Progress Note, Physician Chief Complaint: pateint awake alert on ivf awaiting calvary evaluation - Current Medication List Current Medications: Active Medications Cefazolin Sodium/Dextrose (Ancef 2 Gm Premixed Ivpb -) 2 gm in 50 mls @ 100 mls /hr IVPB Q8H-IV QAMAR Last Admin: 09/12/18 09:19 Dose: 100 mls/hr Amino Acids (Clinimix -) 1,000 mls @ 42 mls/hr IV Q24H QAMAR Last Admin: 09/11/18 17:04 Dose: Not Given - Objective Vital Signs: Vital Signs Temperature 98.4 F 09/12/18 13:46 Pulse Rate 92 H 09/12/18 13:46 Respiratory Rate 18 09/12/18 13:46 Blood Pressure 126/57 L 09/12/18 13:46 O2 Sat by Pulse Oximetry (%) 100 09/11/18 21:00 Constitutional: Yes: Calm Cardiovascular: Yes: Regular Rate and Rhythm, S1, S2 Respiratory: Yes: CTA Bilaterally Gastrointestinal: Yes: Normal Bowel Sounds, Soft Labs: CBC, BMP 09/12/18 06:30 09/12/18 06:30 INR, PTT INR 1.32 (0.83-1.09) H 09/02/18 18:50 Problem List - Problems (1) Dehydration with hypernatremia Assessment/Plan: sodium improved still on ivf appreciate shree carrillo not not able to swallow hold food in mouth spoke to she says no feeding tube awaiting calvary evalaution Code(s): E87.0 - HYPEROSMOLALITY AND HYPERNATREMIA (2) Bacteremia Assessment/Plan: on cefazoin Microbiology 09/03/18 16:00 Blood - Peripheral Venous Blood Culture - Final Escherichia Coli 09/02/18 19:00 Urine - Urine - Catheterized Urine Culture - Final Escherichia Coli cefazolin iv new blood cultures no growth Microbiology 09/03/18 18:00 Blood - Peripheral Venous Blood Culture - Final NO GROWTH AFTER 5 DAYS INCUBATION 09/07/18 09:38 Blood - Peripheral Venous Blood Culture - Preliminary NO GROWTH OBTAINED AFTER 48 HOURS, INCUBATION TO CONTINUE FOR 3 DAYS. 09/07/18 09:16 Blood - Peripheral Venous Blood Culture - Preliminary NO GROWTH OBTAINED AFTER 48 HOURS, INCUBATION TO CONTINUE FOR 3 DAYS. Code(s): R78.81 - BACTEREMIA (3) Dementia Assessment/Plan: dr lacy consult noted patient not taking in oral meds - has not take nameda or zyprexa iv ativan as needed on vest adn wrist restraints Code(s): F03.90 - UNSPECIFIED DEMENTIA WITHOUT BEHAVIORAL DISTURBANCE Qualifiers: Dementia behavioral disturbance: with behavioral disturbance (4) Change in mental status Assessment/Plan: improved from before sodium better on iv fluids Code(s): R41.82 - ALTERED MENTAL STATUS, UNSPECIFIED (5) ZAID (acute kidney injury) Assessment/Plan: renal function improving on ivf bun/cr now normal Code(s): N17.9 - ACUTE KIDNEY FAILURE, UNSPECIFIED
[2018-09-12] MEDS: AMINO ACIDS 4.25%/D5W 1,000 ML IV SCH (18:59)
--- NOTE | 2018-09-12 23:00 | PN ---
Progress Note (short form) - Note Progress Note: NEUROLOGY PROGRESS: Events reviewed. Patient examined. Off Zyprexa. Na+=141, Cl-=111. Lytes normal. Patient is awake, alert, follows simple commands. Full wood to threat Symmetrical grasps and mov'ts of all fours. Gag present. 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 Much improved Re: Toxic-metabolic Encephalopathy. SUGGEST: Keep hydrated. Avoid neuroleptics, sedatives and hypnotics. Thank you very much, Mike Johnston MD
[2018-09-13] MEDS: CEFAZOLIN 2 GM/D5W 2 GM/50 ML ML IVPB SCH ×2 (01:33→10:44)
[2018-09-13] MEDS ORDERED: INSULIN (NOVOLOG) ASPART 100 UNITS/ML 10ML VIAL ONE (07:37)
[2018-09-13] MEDS ORDERED: PT OWN MED DRAWER 7, Y5N ONE (07:38)
--- NOTE | 2018-09-13 09:10 | PN ---
Progress Note, Physician - Current Medication List Current Medications: Active Medications Cefazolin Sodium/Dextrose (Ancef 2 Gm Premixed Ivpb -) 2 gm in 50 mls @ 100 mls /hr IVPB Q8H-IV QAMAR Last Admin: 09/13/18 01:33 Dose: 100 mls/hr Amino Acids (Clinimix -) 1,000 mls @ 42 mls/hr IV Q24H QAMAR Last Admin: 09/12/18 18:59 Dose: 42 mls/hr - Objective Vital Signs: Vital Signs Temperature 98.3 F 09/13/18 06:00 Pulse Rate 91 H 09/13/18 06:00 Respiratory Rate 20 09/13/18 06:00 Blood Pressure 120/62 09/13/18 06:00 O2 Sat by Pulse Oximetry (%) 100 09/12/18 21:00 Cardiovascular: Yes: S1, S2 Respiratory: Yes: Regular, CTA Bilaterally Gastrointestinal: Yes: Normal Bowel Sounds, Soft Edema: No Neurological: Yes: Alert, Confusion Labs: CBC, BMP 09/12/18 06:30 09/12/18 06:30 INR, PTT INR 1.32 (0.83-1.09) H 09/02/18 18:50 Assessment/Plan - Problems (1) Dehydration with hypernatremia Assessment/Plan: sodium improved still on ivf --poor access appreciate shree carrillo not not able to swallow hold food in mouth spoke to she says no feeding tube awaiting calvary evalaution Code(s): E87.0 - HYPEROSMOLALITY AND HYPERNATREMIA (2) Bacteremia Assessment/Plan: on cefazoin Microbiology 09/03/18 16:00 Blood - Peripheral Venous Blood Culture - Final Escherichia Coli 09/02/18 19:00 Urine - Urine - Catheterized Urine Culture - Final Escherichia Coli cefazolin iv new blood cultures no growth Microbiology 09/03/18 18:00 Blood - Peripheral Venous Blood Culture - Final NO GROWTH AFTER 5 DAYS INCUBATION 09/07/18 09:38 Blood - Peripheral Venous Blood Culture - Preliminary NO GROWTH OBTAINED AFTER 48 HOURS, INCUBATION TO CONTINUE FOR 3 DAYS. 09/07/18 09:16 Blood - Peripheral Venous Blood Culture - Preliminary NO GROWTH OBTAINED AFTER 48 HOURS, INCUBATION TO CONTINUE FOR 3 DAYS. Code(s): R78.81 - BACTEREMIA (3) Dementia Assessment/Plan: dr lacy consult noted patient not taking in oral meds - has not take nameda or zyprexa iv ativan as needed on vest adn wrist restraints Code(s): F03.90 - UNSPECIFIED DEMENTIA WITHOUT BEHAVIORAL DISTURBANCE Qualifiers: Dementia behavioral disturbance: with behavioral disturbance (4) Change in mental status Assessment/Plan: improved from before sodium better on iv fluids Code(s): R41.82 - ALTERED MENTAL STATUS, UNSPECIFIED (5) ZAID (acute kidney injury) Assessment/Plan: renal function improving on ivf bun/cr now normal Code(s): N17.9 - ACUTE KIDNEY FAILURE, UNSPECIFIED
[2018-09-13] MEDS: AMINO ACIDS 4.25%/D5W 1,000 ML IV SCH ×2 (12:15→16:00)
--- NOTE | 2018-09-13 14:17 | PN ---
Progress Note (short form) - Note Progress Note: Renal follow up for ZAID/Hypernatremia Pt seen and examined at the bedside awake and alert, confused no overnight events Vital Signs Temperature 98.1 F 09/13/18 10:34 Pulse Rate 83 09/13/18 10:34 Respiratory Rate 20 09/13/18 10:34 Blood Pressure 134/70 09/13/18 10:34 O2 Sat by Pulse Oximetry (%) 100 09/12/18 21:00 Intake & Output 09/10/18 09/11/18 09/12/18 09/13/18 23:59 23:59 23:59 23:59 Intake Total 4087 196 0673 50 Output Total 75 300 300 Balance 1625 130 858 50 CBC, BMP 09/12/18 06:30 09/12/18 06:30 Current Medications Cefazolin Sodium/Dextrose (Ancef 2 Gm Premixed Ivpb -) 2 gm in 50 mls @ 100 mls /hr IVPB Q8H-IV QAMAR Last Admin: 09/13/18 10:44 Dose: 100 mls/hr Amino Acids (Clinimix -) 1,000 mls @ 42 mls/hr IV Q24H QAMAR Last Admin: 09/13/18 12:15 Dose: 42 mls/hr 88 year old gentleman with hx of Dementia, hypertension, , Hyperlipidemia who [place] with dehydration and hypernatremia and ZAID. #ZAID likely due to intravascular volume depletion (Baseline Cr 1.1) #Hypernatremia in setting of Dementia and poor oral intake (water deficit is 12.9L) #Anemia #Hx of Hypertension (now normotensive) #Dementia #Thrombocytopenia Renal function and electrolytes improved and stable Trend labs daily while inpatient continue abx as per ID supportive care Thank you Sarkis Abebe DO
--- NOTE | 2018-09-13 16:10 | PN ---
Progress Note, Physician History of Present Illness: Awake, responsive Less confused and agitated Afebrile BC polymicrobial CT A/P no acute pathology Day#10 antibiotics - Current Medication List Current Medications: Active Medications Amino Acids (Clinimix -) 1,000 mls @ 42 mls/hr IV Q24H QAMAR Last Admin: 09/13/18 12:15 Dose: 42 mls/hr - Objective Vital Signs: Vital Signs Temperature 98.8 F 09/13/18 14:06 Pulse Rate 97 H 09/13/18 14:06 Respiratory Rate 20 09/13/18 14:06 Blood Pressure 134/70 09/13/18 10:34 O2 Sat by Pulse Oximetry (%) 100 09/12/18 21:00 Constitutional: Yes: No Distress Eyes: Yes: Conjunctiva Clear Cardiovascular: Yes: Regular Rate and Rhythm, Murmur, S1, S2 Respiratory: Yes: Diminished Gastrointestinal: Yes: Normal Bowel Sounds, Soft. No: Tenderness Edema: Yes Labs: CBC, BMP 09/12/18 06:30 09/12/18 06:30 INR, PTT INR 1.32 (0.83-1.09) H 09/02/18 18:50 Assessment/Plan Polymicrobial bacteremia ? source E coli UTI/ bacteremia Day 10 antibiotics D/C, observe off
--- NOTE | 2018-09-14 12:42 | PN ---
Progress Note, Physician Chief Complaint: IN BED, EVENTS AND NOTES REVIEWED MINIMAL RESPONSE LETHARGIC - Current Medication List Current Medications: Active Medications Amino Acids (Clinimix -) 1,000 mls @ 42 mls/hr IV Q24H QAMAR Last Admin: 09/13/18 16:00 Dose: Not Given - Objective Vital Signs: Vital Signs Temperature 97.8 F 09/14/18 11:12 Pulse Rate 80 09/14/18 11:12 Respiratory Rate 18 09/14/18 11:12 Blood Pressure 120/62 09/14/18 11:12 O2 Sat by Pulse Oximetry (%) 100 09/13/18 11:00 Constitutional: Yes: Cachectic, Mild Distress, Thin Eyes: Yes: Other Cardiovascular: Yes: Pulse Irregular Respiratory: Yes: On Nasal O2 Gastrointestinal: Yes: Soft Genitourinary: Yes: Incontinence Musculoskeletal: Yes: Muscle Weakness Extremities: Yes: Other Neurological: Yes: Unresponsive Labs: CBC, BMP 09/12/18 06:30 09/12/18 06:30 INR, PTT INR 1.32 (0.83-1.09) H 09/02/18 18:50 Problem List - Problems (1) Change in mental status Code(s): R41.82 - ALTERED MENTAL STATUS, UNSPECIFIED (2) Dementia Code(s): F03.90 - UNSPECIFIED DEMENTIA WITHOUT BEHAVIORAL DISTURBANCE Qualifiers: Dementia behavioral disturbance: with behavioral disturbance (3) Diabetes Code(s): E11.9 - TYPE 2 DIABETES MELLITUS WITHOUT COMPLICATIONS Assessment/Plan DURAGESIC PATCH STARTED AWAITING FOR TRANSFER TO HOSPICE CENTER IVF STOPPED FOR NOW DUE TO RESP CONGESTION WILL RESTART IN MORNING COMFORT MEASURES ONLY 02 SUPPORT SCOPALAMINE PATCH
[2018-09-14] MEDS ORDERED: FENTANYL PATCH WASTE TD PRN (13:30)
[2018-09-14] MEDS: fentaNYL 12mcg/hr PATCH.TD72 TD SCH (14:52)
[2018-09-14] MEDS: SCOPOLAMINE HYDROBROMIDE 1 PATCH PATCH.TD72 TD SCH (15:29)
--- NOTE | 2018-09-14 21:52 | PN ---
Progress Note (short form) - Note Progress Note: covering dr gonzalez Problems Dementia, hypertension, , Hyperlipidemia dehydration hypernatremia ZAID. Current Medications Fentanyl (Duragesic 12mcg Patch -) 1 patch TD Q72H QAMAR Stop: 09/21/18 13:29 Last Admin: 09/14/18 14:52 Dose: 1 patch Miscellaneous (Duragesic Patch Waste) 1 each TD PRN PRN PRN Reason: PAIN Stop: 09/21/18 13:29 Scopolamine HBr (Transderm-Scop -) 1 patch TD Q72H QAMAR Last Admin: 09/14/18 15:29 Dose: 1 patch Last Vital Signs Temp Pulse Resp BP Pulse Ox 97.8 F 93 H 18 140/70 100 09/14/18 14:43 09/14/18 20:41 09/14/18 20:41 09/14/18 20:41 09/14/18 09:00 O/E CBC, BMP 09/12/18 06:30 09/12/18 06:30 IMP #ZAID likely due to intravascular volume depletion (Baseline Cr 1.1) #Hypernatremia in setting of Dementia and poor oral intake (water deficit is 12.9L) #Anemia #Hx of Hypertension (now normotensive) #Dementia #Thrombocytopenia Renal function and electrolytes improved and stable Trend labs daily while inpatient continue abx as per ID supportive care
--- NOTE | 2018-09-15 14:01 | PN ---
Progress Note, Physician Chief Complaint: PATIENT DOES NOT HAVE IV ACCESS I WAS ABLE TO INSERT AN IV 18" TO LEFT CUBITAL FOSSA SON BEDSIDE AWAITING HOSPICE PLACEMENT - Current Medication List Current Medications: Active Medications Fentanyl (Duragesic 12mcg Patch -) 1 patch TD Q72H QAMAR Stop: 09/21/18 13:29 Last Admin: 09/14/18 14:52 Dose: 1 patch Miscellaneous (Duragesic Patch Waste) 1 each TD PRN PRN PRN Reason: PAIN Stop: 09/21/18 13:29 Scopolamine HBr (Transderm-Scop -) 1 patch TD Q72H QAMAR Last Admin: 09/14/18 15:29 Dose: 1 patch - Objective Vital Signs: Vital Signs Temperature 98.4 F 09/15/18 09:56 Pulse Rate 100 H 09/15/18 09:56 Respiratory Rate 18 09/15/18 09:56 Blood Pressure 150/73 09/15/18 09:56 O2 Sat by Pulse Oximetry (%) 99 09/15/18 09:56 Constitutional: Yes: Mild Distress Cardiovascular: Yes: Pulse Irregular Respiratory: Yes: Diminished, On Nasal O2 Genitourinary: Yes: Incontinence Musculoskeletal: Yes: Muscle Weakness Edema: Yes Neurological: Yes: Confusion Labs: CBC, BMP 09/12/18 06:30 09/12/18 06:30 INR, PTT INR 1.32 (0.83-1.09) H 09/02/18 18:50 Problem List - Problems (1) Change in mental status Code(s): R41.82 - ALTERED MENTAL STATUS, UNSPECIFIED (2) Dementia Code(s): F03.90 - UNSPECIFIED DEMENTIA WITHOUT BEHAVIORAL DISTURBANCE Qualifiers: Dementia behavioral disturbance: with behavioral disturbance (3) Diabetes Code(s): E11.9 - TYPE 2 DIABETES MELLITUS WITHOUT COMPLICATIONS (4) FTT (failure to thrive) in adult Code(s): R62.7 - ADULT FAILURE TO THRIVE Assessment/Plan IVF STARTED PAIN CONTROL AWAIT TRANSFER TO HOSPICE
[2018-09-15] MEDS: DEXTROSE 5%-NORMAL SALINE 1,000 ML IV SCH (17:02)
--- NOTE | 2018-09-15 19:53 | PN ---
Progress Note (short form) - Note Progress Note: covering dr gonzalez Problems Dementia, hypertension, , Hyperlipidemia dehydration hypernatremia ZAID. waiting for hospice placement Current Medications Fentanyl (Duragesic 12mcg Patch -) 1 patch TD Q72H QAMAR Stop: 09/21/18 13:29 Last Admin: 09/14/18 14:52 Dose: 1 patch Dextrose/Sodium Chloride (D5-Ns -) 1,000 mls @ 83 mls/hr IV ASDIR QAMAR Last Admin: 09/15/18 17:02 Dose: 83 mls/hr Miscellaneous (Duragesic Patch Waste) 1 each TD PRN PRN PRN Reason: PAIN Stop: 09/21/18 13:29 Scopolamine HBr (Transderm-Scop -) 1 patch TD Q72H QAMAR Last Admin: 09/14/18 15:29 Dose: 1 patch Last Vital Signs Temp Pulse Resp BP Pulse Ox 98.3 F 95 H 18 131/61 99 09/15/18 17:53 09/15/18 17:53 09/15/18 17:53 09/15/18 17:53 09/15/18 09:56 O/E in nad lungs clear heart reg IMP ZAID likely due to intravascular volume depletion (Baseline Cr 1.1) Hypernatremia in setting of Dementia and poor oral intake (water deficit is 12.9L) Anemia Hx of Hypertension (now normotensive) Dementia Thrombocytopenia Plan- on iv hydration perhaps stopping blood work is more in keeping within plan of care
[2018-09-16] MEDS: DEXTROSE 5%-NORMAL SALINE 1,000 ML IV SCH ×2 (05:00→18:10)
--- NOTE | 2018-09-16 09:46 | PN ---
Progress Note, Physician - Current Medication List Current Medications: Active Medications Fentanyl (Duragesic 12mcg Patch -) 1 patch TD Q[facility]H [facility] Stop: 09/21/18 13:29 Last Admin: 09/14/18 14:52 Dose: 1 patch Dextrose/Sodium Chloride (D5-Ns -) 1,000 mls @ 83 mls/hr IV [facility] Last Admin: 09/16/18 05:00 Dose: 83 mls/hr Miscellaneous (Duragesic Patch Waste) 1 each TD PRN PRN PRN Reason: PAIN Stop: 09/21/18 13:29 Scopolamine HBr (Transderm-Scop -) 1 patch TD Q72H [facility] Last Admin: 09/14/18 15:29 Dose: 1 patch - Objective Vital Signs: Vital Signs Temperature 97.4 F L 09/16/18 01:43 Pulse Rate 94 H 09/16/18 01:43 Respiratory Rate 18 09/16/18 01:43 Blood Pressure 118/80 09/16/18 01:43 O2 Sat by Pulse Oximetry (%) 99 09/15/18 21:00 Labs: CBC, BMP 09/12/18 06:30 09/12/18 06:30 INR, PTT INR 1.32 (0.83-1.09) H 09/02/18 18:50
--- NOTE | 2018-09-16 09:46 | PN ---
Progress Note, Physician - Current Medication List Current Medications: Active Medications Fentanyl (Duragesic 12mcg Patch -) 1 patch TD Q72H QAMAR Stop: 09/21/18 13:29 Last Admin: 09/14/18 14:52 Dose: 1 patch Dextrose/Sodium Chloride (D5-Ns -) 1,000 mls @ 83 mls/hr IV ASDIR QAMAR Last Admin: 09/16/18 05:00 Dose: 83 mls/hr Miscellaneous (Duragesic Patch Waste) 1 each TD PRN PRN PRN Reason: PAIN Stop: 09/21/18 13:29 Scopolamine HBr (Transderm-Scop -) 1 patch TD Q72H QAMAR Last Admin: 09/14/18 15:29 Dose: 1 patch - Objective Vital Signs: Vital Signs Temperature 97.4 F L 09/16/18 01:43 Pulse Rate 94 H 09/16/18 01:43 Respiratory Rate 18 09/16/18 01:43 Blood Pressure 118/80 09/16/18 01:43 O2 Sat by Pulse Oximetry (%) 99 09/15/18 21:00 Cardiovascular: Yes: S1, S2 Respiratory: Yes: Regular, CTA Bilaterally Gastrointestinal: Yes: Normal Bowel Sounds, Soft. No: Tenderness Labs: CBC, BMP 09/12/18 06:30 09/12/18 06:30 INR, PTT INR 1.32 (0.83-1.09) H 09/02/18 18:50 Assessment/Plan - Problems (1) Dehydration with hypernatremia Assessment/Plan: sodium improved still on ivf -- appreciate shree carrillo not not able to swallow hold food in mouth spoke to she says no feeding tube awaiting [facility] evalaution Code(s): E87.0 - HYPEROSMOLALITY AND HYPERNATREMIA (2) Bacteremia Assessment/Plan: off cefazoin Microbiology 09/07/18 09:38 Blood - Peripheral Venous Blood Culture - Final NO GROWTH AFTER 5 DAYS INCUBATION 09/07/18 09:16 Blood - Peripheral Venous Blood Culture - Final NO GROWTH AFTER 5 DAYS INCUBATION 09/03/18 18:00 Blood - Peripheral Venous Blood Culture - Final NO GROWTH AFTER 5 DAYS INCUBATION 09/02/18 18:00 Blood - Peripheral Venous Blood Culture - Final NO GROWTH AFTER 5 DAYS INCUBATION 09/02/18 18:50 Blood - Peripheral Venous Blood Culture - Final Gemella Morbillorum Staphylococcus Aureus 09/03/18 16:00 Blood - Peripheral Venous Blood Culture - Final Escherichia Coli 09/02/18 19:00 Urine - Urine - Catheterized Urine Culture - Final Escherichia Coli new blood cultures no growth Code(s): R78.81 - BACTEREMIA (3) Dementia Assessment/Plan: dr lacy consult noted patient not taking in oral meds - has not take nameda or zyprexa Code(s): F03.90 - UNSPECIFIED DEMENTIA WITHOUT BEHAVIORAL DISTURBANCE Qualifiers: Dementia behavioral disturbance: with behavioral disturbance (4) Change in mental status Assessment/Plan: improved from before sodium better on iv fluids Code(s): R41.82 - ALTERED MENTAL STATUS, UNSPECIFIED (5) ZAID (acute kidney injury) Assessment/Plan: renal function improving on ivf bun/cr now normal Code(s): N17.9 - ACUTE KIDNEY FAILURE, UNSPECIFIED await [facility] vs hospice care
--- NOTE | 2018-09-16 11:23 | PN ---
Progress Note (short form) - Note Progress Note: Renal follow up for ZAID/Hypernatremia Pt seen and examine at the bedside no overnight events on IVF no change in clinical status Vital Signs Temperature 97.4 F L 09/16/18 01:43 Pulse Rate 94 H 09/16/18 01:43 Respiratory Rate 18 09/16/18 01:43 Blood Pressure 118/80 09/16/18 01:43 O2 Sat by Pulse Oximetry (%) 99 09/15/18 21:00 Intake & Output 09/13/18 09/14/18 09/15/18 09/16/18 23:59 23:59 23:59 23:59 Intake Total 344 388 298 6931 Output Total 300 500 700 100 Balance 44 164 524 900 Weight 93.95 kg NAD neck supple, no JVD No Le edema CBC, BMP 09/12/18 06:30 09/12/18 06:30 Current Medications Fentanyl (Duragesic 12mcg Patch -) 1 patch TD Q72H QAMAR Stop: 09/21/18 13:29 Last Admin: 09/14/18 14:52 Dose: 1 patch Dextrose/Sodium Chloride (D5-Ns -) 1,000 mls @ 83 mls/hr IV ASDIR QAMAR Last Admin: 09/16/18 05:00 Dose: 83 mls/hr Miscellaneous (Duragesic Patch Waste) 1 each TD PRN PRN PRN Reason: PAIN Stop: 09/21/18 13:29 Scopolamine HBr (Transderm-Scop -) 1 patch TD Q72H QAMAR Last Admin: 09/14/18 15:29 Dose: 1 patch 88 year old gentleman with hx of Dementia, hypertension, , Hyperlipidemia who presented from [place] with dehydration and hypernatremia and ZAID. #ZAID likely due to intravascular volume depletion (Baseline Cr 1.1) #Hypernatremia in setting of Dementia and poor oral intake (water deficit is 12.9L) #Anemia #Hx of Hypertension (now normotensive) #Dementia #Thrombocytopenia Renal function and hypernatremia improved and stable continue IVF as needed for supportive care pt awaiting placement at hospice will sign off case at this time please call with any questions or concerns Thank you Sarkis Abebe DO
[2018-09-17] MEDS: DEXTROSE 5%-NORMAL SALINE 1,000 ML IV SCH ×2 (04:57→16:38)
--- NOTE | 2018-09-17 08:43 | DS ---
Physical Examination Vital Signs: Vital Signs Temperature 98.0 F 09/17/18 06:00 Pulse Rate 94 H 09/17/18 06:00 Respiratory Rate 18 09/17/18 06:00 Blood Pressure 150/64 09/17/18 06:00 O2 Sat by Pulse Oximetry (%) 99 09/16/18 21:00 Cardiovascular: Yes: S1, S2 Respiratory: Yes: Regular, CTA Bilaterally Gastrointestinal: Yes: Normal Bowel Sounds, Soft Labs: CBC, BMP 09/12/18 06:30 09/12/18 06:30 Discharge Summary Reason For Visit: HYPEROSMOLALITY WITH HYPERNATREMIA Current Active Problems ZAID (acute kidney injury) (Acute) Bacteremia (Acute) Change in mental status (Acute) Dehydration with hypernatremia (Acute) FTT (failure to thrive) in adult (Acute) Hospital Course: - Problems (1) Dehydration with hypernatremia Assessment/Plan: sodium improved still on ivf -- appreciate shree carrillo not not able to swallow hold food in mouth spoke to she says no feeding tube awaiting [facility] evalaution Code(s): E87.0 - HYPEROSMOLALITY AND HYPERNATREMIA (2) Bacteremia Assessment/Plan: off cefazoin Microbiology 09/07/18 09:38 Blood - Peripheral Venous Blood Culture - Final NO GROWTH AFTER 5 DAYS INCUBATION 09/07/18 09:16 Blood - Peripheral Venous Blood Culture - Final NO GROWTH AFTER 5 DAYS INCUBATION 09/03/18 18:00 Blood - Peripheral Venous Blood Culture - Final NO GROWTH AFTER 5 DAYS INCUBATION 09/02/18 18:00 Blood - Peripheral Venous Blood Culture - Final NO GROWTH AFTER 5 DAYS INCUBATION 09/02/18 18:50 Blood - Peripheral Venous Blood Culture - Final Gemella Morbillorum Staphylococcus Aureus 09/03/18 16:00 Blood - Peripheral Venous Blood Culture - Final Escherichia Coli 09/02/18 19:00 Urine - Urine - Catheterized Urine Culture - Final Escherichia Coli new blood cultures no growth Code(s): R78.81 - BACTEREMIA (3) Dementia Assessment/Plan: dr lacy consult noted patient not taking in oral meds - has not take nameda or zyprexa Code(s): F03.90 - UNSPECIFIED DEMENTIA WITHOUT BEHAVIORAL DISTURBANCE Qualifiers: Dementia behavioral disturbance: with behavioral disturbance (4) Change in mental status Assessment/Plan: improved from before sodium better on iv fluids Code(s): R41.82 - ALTERED MENTAL STATUS, UNSPECIFIED (5) ZAID (acute kidney injury) Assessment/Plan: renal function improving on ivf bun/cr now normal Code(s): N17.9 - ACUTE KIDNEY FAILURE, UNSPECIFIED await [facility] vs hospice care Condition: Stable - Instructions - Home Medications Comprehensive Discharge Medication List: Ambulatory Orders Acetaminophen 650 mg PO Q4H PRN 09/02/18 Dextrose 5 %-0.45 % Sod Chlord [Dextrose 5%-0.45% NaCl IV Soln] 60 ml IV ASDIR 09/02/18 Heparin - 5,000 unit SQ BID 09/02/18 Memantine HCl [Namenda -] 10 mg PO BID 09/02/18 Olanzapine [Zyprexa] 7.5 mg PO HS 09/02/18 Olanzapine [Zyprexa] 10 mg PO DAILY 09/02/18
[2018-09-17] MEDS: SCOPOLAMINE HYDROBROMIDE 1 PATCH PATCH.TD72 TD SCH (13:44)
[2018-09-17] MEDS: fentaNYL 12mcg/hr PATCH.TD72 TD SCH (13:52)
--- NOTE | 2018-09-18 10:13 | DS ---
Physical Examination Vital Signs: Vital Signs Temperature 99.3 F 09/18/18 06:00 Pulse Rate 96 H 09/18/18 06:00 Respiratory Rate 18 09/18/18 06:00 Blood Pressure 136/73 09/18/18 06:00 O2 Sat by Pulse Oximetry (%) 96 09/17/18 09:00 Cardiovascular: Yes: S1, S2 Respiratory: Yes: Regular, CTA Bilaterally Gastrointestinal: Yes: Normal Bowel Sounds, Soft. No: Tenderness Neurological: Yes: Alert, Confusion Labs: CBC, BMP 09/12/18 06:30 09/12/18 06:30 Discharge Summary Reason For Visit: HYPEROSMOLALITY WITH HYPERNATREMIA Current Active Problems ZAID (acute kidney injury) (Acute) Bacteremia (Acute) Change in mental status (Acute) Dehydration with hypernatremia (Acute) FTT (failure to thrive) in adult (Acute) Hospital Course: - Problems (1) Dehydration with hypernatremia Assessment/Plan: sodium improved still on ivf -- appreciate shree carrillo not not able to swallow hold food in mouth spoke to she says no feeding tube awaiting [facility] evalaution Code(s): E87.0 - HYPEROSMOLALITY AND HYPERNATREMIA (2) Bacteremia Assessment/Plan: off cefazoin Microbiology 09/07/18 09:38 Blood - Peripheral Venous Blood Culture - Final NO GROWTH AFTER 5 DAYS INCUBATION 09/07/18 09:16 Blood - Peripheral Venous Blood Culture - Final NO GROWTH AFTER 5 DAYS INCUBATION 09/03/18 18:00 Blood - Peripheral Venous Blood Culture - Final NO GROWTH AFTER 5 DAYS INCUBATION 09/02/18 18:00 Blood - Peripheral Venous Blood Culture - Final NO GROWTH AFTER 5 DAYS INCUBATION 09/02/18 18:50 Blood - Peripheral Venous Blood Culture - Final Gemella Morbillorum Staphylococcus Aureus 09/03/18 16:00 Blood - Peripheral Venous Blood Culture - Final Escherichia Coli 09/02/18 19:00 Urine - Urine - Catheterized Urine Culture - Final Escherichia Coli new blood cultures no growth Code(s): R78.81 - BACTEREMIA (3) Dementia Assessment/Plan: dr lacy consult noted patient not taking in oral meds - has not take nameda or zyprexa Code(s): F03.90 - UNSPECIFIED DEMENTIA WITHOUT BEHAVIORAL DISTURBANCE Qualifiers: Dementia behavioral disturbance: with behavioral disturbance (4) Change in mental status Assessment/Plan: improved from before sodium better on iv fluids Code(s): R41.82 - ALTERED MENTAL STATUS, UNSPECIFIED (5) ZAID (acute kidney injury) Assessment/Plan: renal function improving on ivf bun/cr now normal Code(s): N17.9 - ACUTE KIDNEY FAILURE, UNSPECIFIED await [facility] vs hospice care Condition: Stable - Instructions - Home Medications Comprehensive Discharge Medication List: Ambulatory Orders Acetaminophen 650 mg PO Q4H PRN 09/02/18 Dextrose 5 %-0.45 % Sod Chlord [Dextrose 5%-0.45% NaCl IV Soln] 60 ml IV ASDIR 09/02/18 Heparin - 5,000 unit SQ BID 09/02/18 Memantine HCl [Namenda -] 10 mg PO BID 09/02/18 Olanzapine [Zyprexa] 7.5 mg PO HS 09/02/18 Olanzapine [Zyprexa] 10 mg PO DAILY 09/02/18
[2018-09-18] MEDS: DEXTROSE 5%-NORMAL SALINE 1,000 ML IV SCH (16:56)
[2018-09-19] MEDS: DEXTROSE 5%-NORMAL SALINE 1,000 ML IV SCH ×2 (06:32→17:38)
--- NOTE | 2018-09-19 13:36 | PN ---
Progress Note, Physician Chief Complaint: patient seen and examined awaiting bed at [facility] - Current Medication List Current Medications: Active Medications Fentanyl (Duragesic 12mcg Patch -) 1 patch TD Q72H [facility]AMAR Stop: 09/21/18 13:29 Last Admin: 09/17/18 13:52 Dose: 1 patch Dextrose/Sodium Chloride (D5-Ns -) 1,000 mls @ 83 mls/hr IV ASDIR QAMAR Last Admin: 09/19/18 06:32 Dose: 83 mls/hr Miscellaneous (Duragesic Patch Waste) 1 each TD PRN PRN PRN Reason: PAIN Stop: 09/21/18 13:29 Last Admin: 09/17/18 13:43 Dose: 1 each Scopolamine HBr (Transderm-Scop -) 1 patch TD Q72H [facility] Last Admin: 09/17/18 13:44 Dose: 1 patch - Objective Vital Signs: Vital Signs Temperature 98.2 F 09/19/18 11:06 Pulse Rate 86 09/19/18 11:06 Respiratory Rate 20 09/19/18 11:06 Blood Pressure 135/83 09/19/18 11:06 O2 Sat by Pulse Oximetry (%) 95 09/18/18 20:34 Constitutional: Yes: Calm Cardiovascular: Yes: Regular Rate and Rhythm, S1, S2 Respiratory: Yes: CTA Bilaterally Gastrointestinal: Yes: Normal Bowel Sounds, Soft Labs: CBC, BMP 09/12/18 06:30 09/12/18 06:30 INR, PTT INR 1.32 (0.83-1.09) H 09/02/18 18:50 Problem List - Problems (1) Dehydration with hypernatremia Assessment/Plan: sodium improved still on ivf awaiting [facility] bed NPO no g tube Code(s): E87.0 - HYPEROSMOLALITY AND HYPERNATREMIA (2) Bacteremia Assessment/Plan: on cefazoin- stopped Microbiology 09/03/18 16:00 Blood - Peripheral Venous Blood Culture - Final Escherichia Coli 09/02/18 19:00 Urine - Urine - Catheterized Urine Culture - Final Escherichia Coli cefazolin iv new blood cultures no growth Microbiology 09/03/18 18:00 Blood - Peripheral Venous Blood Culture - Final NO GROWTH AFTER 5 DAYS INCUBATION 09/07/18 09:38 Blood - Peripheral Venous Blood Culture - Preliminary NO GROWTH OBTAINED AFTER 48 HOURS, INCUBATION TO CONTINUE FOR 3 DAYS. 09/07/18 09:16 Blood - Peripheral Venous Blood Culture - Preliminary NO GROWTH OBTAINED AFTER 48 HOURS, INCUBATION TO CONTINUE FOR 3 DAYS. Code(s): R78.81 - BACTEREMIA (3) Dementia Assessment/Plan: no oral meds Code(s): F03.90 - UNSPECIFIED DEMENTIA WITHOUT BEHAVIORAL DISTURBANCE Qualifiers: Dementia behavioral disturbance: with behavioral disturbance (4) Change in mental status Assessment/Plan: improved from before sodium better on iv fluids Code(s): R41.82 - ALTERED MENTAL STATUS, UNSPECIFIED (5) ZAID (acute kidney injury) Assessment/Plan: comfort care Code(s): N17.9 - ACUTE KIDNEY FAILURE, UNSPECIFIED Assessment/Plan comfort care awaiting [facility]
[2018-09-20 08:56] VITALS: BP 149/55; PULSE 100; TEMP 99
--- NOTE | 2018-09-20 11:47 | DS ---
Physical Examination Vital Signs: Vital Signs Temperature 99 F 09/20/18 08:50 Pulse Rate 100 H 09/20/18 08:50 Respiratory Rate 20 09/20/18 08:50 Blood Pressure 149/55 L 09/20/18 08:50 O2 Sat by Pulse Oximetry (%) 95 09/19/18 21:00 Cardiovascular: Yes: S1, S2 Respiratory: Yes: Regular, CTA Bilaterally Gastrointestinal: Yes: Normal Bowel Sounds, Soft Labs: CBC, BMP 09/12/18 06:30 09/12/18 06:30 Discharge Summary Reason For Visit: HYPEROSMOLALITY WITH HYPERNATREMIA Current Active Problems ZAID (acute kidney injury) (Acute) Bacteremia (Acute) Change in mental status (Acute) Dehydration with hypernatremia (Acute) FTT (failure to thrive) in adult (Acute) Hospital Course: - Problems (1) Dehydration with hypernatremia Assessment/Plan: sodium improved still on ivf -- appreciate shree carrillo not not able to swallow hold food in mouth spoke to she says no feeding tube [facility] evalaution Code(s): E87.0 - HYPEROSMOLALITY AND HYPERNATREMIA (2) Bacteremia Assessment/Plan: off cefazoin new blood cultures no growth Code(s): R78.81 - BACTEREMIA (3) Dementia Assessment/Plan: dr lacy consult noted patient not taking in oral meds - has not take nameda or zyprexa Code(s): F03.90 - UNSPECIFIED DEMENTIA WITHOUT BEHAVIORAL DISTURBANCE Qualifiers: Dementia behavioral disturbance: with behavioral disturbance (4) Change in mental status Assessment/Plan: improved from before sodium better on iv fluids Code(s): R41.82 - ALTERED MENTAL STATUS, UNSPECIFIED (5) ZIAD (acute kidney injury) Assessment/Plan: renal function improving on ivf bun/cr now normal Code(s): N17.9 - ACUTE KIDNEY FAILURE, UNSPECIFIED await [facility] transfer Condition: Stable - Instructions Disposition: TRANSFER ACUTE CARE/OTHER HOSP - Home Medications Comprehensive Discharge Medication List: Ambulatory Orders Acetaminophen 650 mg PO Q4H PRN 09/02/18 Dextrose 5 %-0.45 % Sod Chlord [Dextrose 5%-0.45% NaCl IV Soln] 60 ml IV ASDIR 09/02/18 Heparin - 5,000 unit SQ BID 09/02/18 Memantine HCl [Namenda -] 10 mg PO BID 09/02/18 Olanzapine [Zyprexa] 7.5 mg PO HS 09/02/18 Olanzapine [Zyprexa] 10 mg PO DAILY 09/02/18
[2018-09-20] MEDS: fentaNYL 12mcg/hr PATCH.TD72 TD SCH (12:06)
== END 2018-09-20 12:36 | disposition hospice, inpatient (51) | DRG 682 ==
LOC: JER 16:40 → JERBED 20:51 → J5S 22:54
PROVIDERS: ADMIT Internal Medicine; ATTEND Family Medicine
DX: N17.9 Acute kidney failure, unspecified (principal); G92 Toxic encephalopathy; E87.0 Hyperosmolality and hypernatremia; N39.0 Urinary tract infection, site not specified; R64 Cachexia; F02.81 Dementia in other diseases classified elsewhere, unspecified severity, with behavioral disturbance; B96.29 Other Escherichia coli [E. coli] as the cause of diseases classified elsewhere; E86.0 Dehydration; D72.829 Elevated white blood cell count, unspecified; R62.51 Failure to thrive (child); E11.9 Type 2 diabetes mellitus without complications; B95.61 Methicillin susceptible Staphylococcus aureus infection as the cause of diseases classified elsewhere; R63.0 Anorexia; D69.6 Thrombocytopenia, unspecified; E78.5 Hyperlipidemia, unspecified; F31.9 Bipolar disorder, unspecified; I35.0 Nonrheumatic aortic (valve) stenosis; K21.9 Gastro-esophageal reflux disease without esophagitis; G30.9 Alzheimer's disease, unspecified; E55.9 Vitamin D deficiency, unspecified; Z68.28 Body mass index [BMI] 28.0-28.9, adult; I10 Essential (primary) hypertension; D64.9 Anemia, unspecified; E86.1 Hypovolemia; Z66 Do not resuscitate; M19.90 Unspecified osteoarthritis, unspecified site; E66.9 Obesity, unspecified; Z78.1 Physical restraint status
CPT/HCPCS: 36415; 71045-TC-FY; 74176-TC; 74230-TC-FY; 80048; 80053; 81003; 81015; 82140; 82570; 82962; 83605; 83735; 83930; 83935; 84100; 84156; 84300; 84484; 84550; 85025; 85027; 85610; 85730; 87040; 87086; 87186; 92611-GN; 93005; 93010; 99285-25; G0480; J1644; J7030